=== PATIENT | male | born 1950 | race Caucasian/White ===

== ENCOUNTER 2018-01-05 17:11 | Outpatient (REF) | payer MEDICARE, SELFPAY ==
[2018-01-05 18:41] LABS: C-Reactive Protein 2.35 mg/dL (0.0-0.3)
[2018-01-05 20:36] LABS: ESR 39 MM/HR (1-20)
== END 2018-01-05 17:31 ==
LOC: LBN 17:11
PROVIDERS: Visit Provider Family Medicine
DX: L89.150 Pressure ulcer of sacral region, unstageable (principal)
CPT/HCPCS: 85652; 86140

== ENCOUNTER 2018-02-13 14:37 | Outpatient (REF) | payer MEDICARE, SELFPAY ==
[2018-02-13 15:08] LABS: HCT 37.2 % (40.0-50.0); HGB 12.1 g/dL (13.5-17.5); Mean Corp. HGB Concentration 32.5 g/dL (32.0-36.0); Mean Corpuscular Hemoglobin 29.5 pg (27.0-33.0); Mean Corpuscular Volume 90.7 fL (80-95); Mean Platelet Volume 9.1 fL (8.0-11.0); Platelet Count 282 x1000/uL (130-400); RBC Distribution Width 13.7 % (11.8-14.1); White Blood Cell Count 5.52 k/cumm (4.4-10.8)
[2018-02-13 15:31] LABS: ALT 17 U/L (12-78); AST 14 U/L (15-37); Albumin 2.9 g/dL (3.4-5.0); Alkaline Phosphatase 83 U/L (46-116); BUN 12 mg/dL (7-18); Bilirubin, Total 0.4 mg/dL (0.2-1.0); C-Reactive Protein 3.43 mg/dL (0.0-0.3); CREATININE 0.57 mg/dL (0.70-1.30); Calcium 8.5 mg/dL (8.5-10.1); Chloride 102 mmol/L (98-107); Creatine Kinase 46 U/L (39-308); Glucose 89 mg/dL (70-100); Sodium 138 mmol/L (136-145); Total Protein 6.3 g/dL (6.4-8.2)
[2018-02-13 16:08] LABS: ESR 42 MM/HR (1-20)
== END 2018-02-13 14:57 ==
LOC: LBN 14:37
PROVIDERS: Visit Provider Hospitalist
DX: M46.28 Osteomyelitis of vertebra, sacral and sacrococcygeal region (principal)
CPT/HCPCS: 80053; 82550; 85027; 85652; 86140

== ENCOUNTER 2018-02-20 17:30 | Outpatient (REF) | payer MEDICARE, SELFPAY ==
[2018-02-21 10:05] LABS: Alkaline Phosphatase 74 U/L (46-116); Anion Gap 9.5 mmol/L (3-11); BUN 18 mg/dL (7-18); Bilirubin, Total 0.4 mg/dL (0.2-1.0); CO2 28.5 mmol/L (21.0-32.0); CREATININE 0.64 mg/dL (0.70-1.30); Calcium 8.6 mg/dL (8.5-10.1); Chloride 103 mmol/L (98-107); Glucose 84 mg/dL (70-100); Potassium 4.6 mmol/L (3.5-5.1); Sodium 141 mmol/L (136-145); Total Protein 6.3 g/dL (6.4-8.2)
[2018-02-21 10:06] LABS: ALT 15 U/L (12-78); AST 13 U/L (15-37)
[2018-02-21 10:10] LABS: HCT 39.7 % (40.0-50.0); HGB 12.7 g/dL (13.5-17.5); Mean Corpuscular Volume 89.8 fL (80-95); RBC 4.42 m/cumm (4.50-6.00)
[2018-02-21 10:11] LABS: ESR 41 MM/HR (1-20); Mean Corpuscular Hemoglobin 28.7 pg (27.0-33.0); Mean Platelet Volume 9.7 fL (8.0-11.0); Platelet Count 263 x1000/uL (130-400); RBC Distribution Width 14.3 % (11.8-14.1)
[2018-02-21 10:14] LABS: Creatine Kinase 45 U/L (39-308)
== END 2018-02-20 17:50 ==
LOC: LBN 17:30
PROVIDERS: Visit Provider Hospitalist
DX: M46.28 Osteomyelitis of vertebra, sacral and sacrococcygeal region (principal); N39.0 Urinary tract infection, site not specified; Z79.2 Long term (current) use of antibiotics
CPT/HCPCS: 80053; 82550; 85027; 85652; 86140

== ENCOUNTER 2018-02-27 12:38 | Outpatient (REF) | payer MEDICARE, SELFPAY ==
[2018-02-27 13:57] LABS: Absolute Basophil Count 0.02 k/cumm (0.0-0.2); Absolute Eosinophil Count 0.47 k/cumm (0.0-0.7); Absolute Lymphocyte Count 0.63 k/cumm (1.2-3.4); Absolute Monocyte Count 0.57 k/cumm (0.11-0.7); Absolute Neutrophil Count 4.58 k/cumm (1.2-6.7); Basophils % 0.3; Eosinophils % 7.5; HCT 40.3 % (40.0-50.0); Mean Corp. HGB Concentration 32.3 g/dL (32.0-36.0); Mean Corpuscular Hemoglobin 28.8 pg (27.0-33.0); Mean Corpuscular Volume 89.2 fL (80-95); Mean Platelet Volume 9.1 fL (8.0-11.0); Monocytes % 9.1; Neutrophils % 73.1; Platelet Count 270 x1000/uL (130-400); RBC 4.52 m/cumm (4.50-6.00); RBC Distribution Width 14.2 % (11.8-14.1); White Blood Cell Count 6.27 k/cumm (4.4-10.8)
[2018-02-27 14:10] LABS: ALT 17 U/L (12-78); AST 13 U/L (15-37); Albumin 3.2 g/dL (3.4-5.0); Alkaline Phosphatase 86 U/L (46-116); Anion Gap 9.8 mmol/L (3-11); BUN 12 mg/dL (7-18); Bilirubin, Total 0.3 mg/dL (0.2-1.0); C-Reactive Protein 0.47 mg/dL (0.0-0.3); CO2 28.2 mmol/L (21.0-32.0); CREATININE 0.65 mg/dL (0.70-1.30); Calcium 8.9 mg/dL (8.5-10.1); Chloride 102 mmol/L (98-107); Creatine Kinase 53 U/L (39-308); Glucose 81 mg/dL (70-100); Potassium 4.2 mmol/L (3.5-5.1); Sodium 140 mmol/L (136-145); Total Protein 6.5 g/dL (6.4-8.2)
[2018-02-27 14:30] LABS: ESR 24 MM/HR (1-20)
== END 2018-02-27 12:58 ==
LOC: LBN 12:38
PROVIDERS: Visit Provider Hospitalist
DX: L89.150 Pressure ulcer of sacral region, unstageable (principal); M46.28 Osteomyelitis of vertebra, sacral and sacrococcygeal region; B96.20 Unspecified Escherichia coli [E. coli] as the cause of diseases classified elsewhere; B96.1 Klebsiella pneumoniae [K. pneumoniae] as the cause of diseases classified elsewhere; Z79.2 Long term (current) use of antibiotics; C41.4 Malignant neoplasm of pelvic bones, sacrum and coccyx; C41.2 Malignant neoplasm of vertebral column; C78.00 Secondary malignant neoplasm of unspecified lung
CPT/HCPCS: 80053; 82550; 85652; 85025; 86140

== ENCOUNTER 2018-03-06 13:03 | Outpatient (REF) | payer MEDICARE, BC, SELFPAY ==
[2018-03-06 13:36] LABS: Abs Immature Grans 0.01 k/cumm (0.0-0.09); Absolute Basophil Count 0.03 k/cumm (0.0-0.2); Absolute Eosinophil Count 0.31 k/cumm (0.0-0.7); Absolute Lymphocyte Count 0.66 k/cumm (1.2-3.4); Absolute Monocyte Count 0.58 k/cumm (0.11-0.7); Absolute Neutrophil Count 4.38 k/cumm (1.2-6.7); Basophils % 0.5; Eosinophils % 5.2; HGB 13.3 g/dL (13.5-17.5); Immature Grans % 0.2; Lymphocytes % 11.1; Mean Corp. HGB Concentration 32.4 g/dL (32.0-36.0); Mean Corpuscular Hemoglobin 28.7 pg (27.0-33.0); Mean Corpuscular Volume 88.6 fL (80-95); Mean Platelet Volume 9.7 fL (8.0-11.0); Monocytes % 9.7; Neutrophils % 73.3; Platelet Count 263 x1000/uL (130-400); RBC 4.63 m/cumm (4.50-6.00); RBC Distribution Width 14.5 % (11.8-14.1); White Blood Cell Count 5.97 k/cumm (4.4-10.8)
[2018-03-06 14:07] LABS: ALT 16 U/L (12-78); AST 20 U/L (15-37); Albumin 3.3 g/dL (3.4-5.0); Alkaline Phosphatase 90 U/L (46-116); Anion Gap 9.1 mmol/L (3-11); BUN 13 mg/dL (7-18); Bilirubin, Total 0.5 mg/dL (0.2-1.0); C-Reactive Protein 1.23 mg/dL (0.0-0.3); CO2 28.9 mmol/L (21.0-32.0); Calcium 9.1 mg/dL (8.5-10.1); Chloride 102 mmol/L (98-107); Creatine Kinase 285 U/L (39-308); Glucose 90 mg/dL (70-100); Potassium 4.5 mmol/L (3.5-5.1); Sodium 140 mmol/L (136-145); Total Protein 6.6 g/dL (6.4-8.2)
[2018-03-06 15:10] LABS: ESR 18 MM/HR (1-20)
== END 2018-03-06 13:23 ==
LOC: LBN 13:03
PROVIDERS: Visit Provider Hospitalist
DX: M46.28 Osteomyelitis of vertebra, sacral and sacrococcygeal region (principal); C41.2 Malignant neoplasm of vertebral column; C41.4 Malignant neoplasm of pelvic bones, sacrum and coccyx; Z79.2 Long term (current) use of antibiotics
CPT/HCPCS: 80053; 82550; 85652; 85025; 86140

== ENCOUNTER 2018-03-13 12:23 | Outpatient (REF) | payer MEDICARE, SELFPAY ==
[2018-03-13 13:36] LABS: Absolute Basophil Count 0.02 k/cumm (0.0-0.2); Absolute Eosinophil Count 0.62 k/cumm (0.0-0.7); Absolute Lymphocyte Count 0.61 k/cumm (1.2-3.4); Absolute Monocyte Count 0.54 k/cumm (0.11-0.7); Absolute Neutrophil Count 3.85 k/cumm (1.2-6.7); Basophils % 0.4; HCT 38.4 % (40.0-50.0); HGB 12.6 g/dL (13.5-17.5); Lymphocytes % 10.8; Mean Corp. HGB Concentration 32.8 g/dL (32.0-36.0); Mean Corpuscular Hemoglobin 29.1 pg (27.0-33.0); Mean Corpuscular Volume 88.7 fL (80-95); Mean Platelet Volume 9.6 fL (8.0-11.0); Monocytes % 9.6; Neutrophils % 68.2; Platelet Count 230 x1000/uL (130-400); RBC 4.33 m/cumm (4.50-6.00); RBC Distribution Width 14.9 % (11.8-14.1); White Blood Cell Count 5.64 k/cumm (4.4-10.8)
[2018-03-13 13:56] LABS: ALT 14 U/L (12-78); AST 15 U/L (15-37); Albumin 2.9 g/dL (3.4-5.0); Alkaline Phosphatase 80 U/L (46-116); Anion Gap 6.7 mmol/L (3-11); BUN 11 mg/dL (7-18); Bilirubin, Total 0.4 mg/dL (0.2-1.0); C-Reactive Protein 3.68 mg/dL (0.0-0.3); CO2 29.3 mmol/L (21.0-32.0); CREATININE 0.61 mg/dL (0.70-1.30); Calcium 8.6 mg/dL (8.5-10.1); Chloride 103 mmol/L (98-107); Creatine Kinase 77 U/L (39-308); Glucose 133 mg/dL (70-100); Potassium 3.9 mmol/L (3.5-5.1); Sodium 139 mmol/L (136-145); Total Protein 6.1 g/dL (6.4-8.2)
[2018-03-13 14:23] LABS: ESR 23 MM/HR (1-20)
== END 2018-03-13 12:43 ==
LOC: LBN 12:23
PROVIDERS: Visit Provider Internal Medicine
DX: M46.28 Osteomyelitis of vertebra, sacral and sacrococcygeal region (principal); B96.1 Klebsiella pneumoniae [K. pneumoniae] as the cause of diseases classified elsewhere; B96.20 Unspecified Escherichia coli [E. coli] as the cause of diseases classified elsewhere; Z79.2 Long term (current) use of antibiotics
CPT/HCPCS: 80053; 82550; 85652; 85025; 86140

== ENCOUNTER 2018-03-20 13:39 | Outpatient (REF) | payer MEDICARE, SELFPAY ==
[2018-03-20 14:12] LABS: Abs Immature Grans 0.01 k/cumm (0.0-0.09); Absolute Basophil Count 0.03 k/cumm (0.0-0.2); Absolute Lymphocyte Count 0.54 k/cumm (1.2-3.4); Absolute Monocyte Count 0.46 k/cumm (0.11-0.7); Absolute Neutrophil Count 3.48 k/cumm (1.2-6.7); Basophils % 0.6; Eosinophils % 6.2; HCT 40.5 % (40.0-50.0); HGB 13.3 g/dL (13.5-17.5); Immature Grans % 0.2; Lymphocytes % 11.2; Mean Corp. HGB Concentration 32.8 g/dL (32.0-36.0); Mean Corpuscular Hemoglobin 29.2 pg (27.0-33.0); Mean Corpuscular Volume 88.8 fL (80-95); Mean Platelet Volume 9.3 fL (8.0-11.0); Monocytes % 9.5; Neutrophils % 72.3; Platelet Count 236 x1000/uL (130-400); RBC 4.56 m/cumm (4.50-6.00); RBC Distribution Width 14.9 % (11.8-14.1); White Blood Cell Count 4.82 k/cumm (4.4-10.8)
[2018-03-20 14:21] LABS: ALT 17 U/L (12-78); AST 13 U/L (15-37); Albumin 3.1 g/dL (3.4-5.0); Alkaline Phosphatase 85 U/L (46-116); Anion Gap 10.4 mmol/L (3-11); BUN 11 mg/dL (7-18); Bilirubin, Total 0.3 mg/dL (0.2-1.0); C-Reactive Protein 0.25 mg/dL (0.0-0.3); CO2 27.6 mmol/L (21.0-32.0); CREATININE 0.77 mg/dL (0.70-1.30); Calcium 8.6 mg/dL (8.5-10.1); Chloride 102 mmol/L (98-107); Creatine Kinase 66 U/L (39-308); Glucose 139 mg/dL (70-100); Potassium 3.9 mmol/L (3.5-5.1); Sodium 140 mmol/L (136-145); Total Protein 6.2 g/dL (6.4-8.2)
[2018-03-20 14:47] LABS: ESR 13 MM/HR (1-20)
== END 2018-03-20 13:59 ==
LOC: LBN 13:39
PROVIDERS: Visit Provider Hospitalist
DX: M46.28 Osteomyelitis of vertebra, sacral and sacrococcygeal region (principal); B96.20 Unspecified Escherichia coli [E. coli] as the cause of diseases classified elsewhere; B96.1 Klebsiella pneumoniae [K. pneumoniae] as the cause of diseases classified elsewhere; Z79.2 Long term (current) use of antibiotics
CPT/HCPCS: 80053; 82550; 85652; 85025; 86140

== ENCOUNTER 2018-07-20 15:58 | Outpatient (REF) | payer MEDICARE, SELFPAY ==
[2018-07-20 16:55] LABS: Bilirubin Negative (Negative); Blood Large (Negative); Clarity Cloudy; Glucose Negative (Negative); Ketones Negative (Negative); Leukocyte Esterase Large (Negative); Nitrite Positive (Negative); Urobilinogen 0.2 EU/dL (Up TO 0.2); pH 6.5 (5-8)
[2018-07-20 17:37] LABS: Bacteria Many HPF (Negative); C & S Indicated? Yes; Casts Negative LPF (Negative); Crystals Negative HPF (Negative); Epithelial Cells Negative HPF (Negative); Mucus Heavy (Negative); RBC >50 (0-2); WBC >50 HPF (0-5)
== END 2018-07-20 16:18 ==
LOC: LBN 15:58
PROVIDERS: Visit Provider Hospitalist
DX: N39.0 Urinary tract infection, site not specified (principal)
CPT/HCPCS: 87077; 81003; 81015; 87086; 87186

== ENCOUNTER 2018-09-20 20:16 | Emergency (ER) | payer MEDICARE, BC, SELFPAY ==
[2018-09-20 20:19] VITALS: BP 135/89; PULSE 87; RESP 16; TEMP 36.1; O2SAT 93
--- NOTE | 2018-09-20 20:21 | ED.GENADUL_ITS ---
Discharge Plan Disposition Patient Disposition: SNF (LEVEL 1) [facility] Condition: Good Discharge Details Chief Complaint: Abd Prob Clinical Impression: Fecal impaction in rectum Primary Care Provider: None,None ED Provider: Win Gutierrez [place] Meds and New Rx's Prescriptions: Continued cyclobenzaprine 10 mg Tablet 10 mg PO TID PRNRF: 0 docusate sodium [Colace] 100 mg Capsule 100 mg PO BID RF: 0 docusate sodium 100 mg Capsule 100 mg PO BID PRNRF: 0 bisacodyl 5 mg Tablet,Delayed Release (Dr/Ec) 10 mg PO Q12H PRNRF: 0 acetaminophen 325 mg Capsule 650 mg PO Q4H PRN PRNRF: 0 sennosides [senna] 8.6 mg Tablet RF: 0 magnesium hydroxide [Milk of Magnesia] 400 mg/5 mL Suspension RF: 0 tamsulosin 0.4 mg Capsule RF: 0 magnesium citrate Solution RF: 0 polyethylene glycol 3350 [Miralax] 17 gram/dose Powder RF: 0 finasteride 5 mg Tablet RF: 0 oxycodone 5 mg Tablet RF: 0 heparin (porcine) 5,000 unit/mL Syringe RF: 0 diclofenac sodium 1 % Gel 4 g TOPICAL RF: 0 Discharge Instructions Additional Instructions: You were manually disimpacted here. You will need an enema when you return to [facility]. Discuss with your primary care a good bowel regimen to try to prevent further constipation. Be sure to drink plenty of fluids and eat lots of fiber foods. Return to ED for abdominal pain, fever, vomiting. Referrals: Vicky Velázquez DO [OSTEOPATHIC DOCTOR] - Discharge Data Discharge Date/Time-TO BE ENTERED AT DEPARTURE: 09/20/18 21:18 Medical Decision Making Patient able to get into left lateral decubitus position. TERESA performed and large amount of stool present in the rectal vault. Patient manually disimpacted by me. Stool is brown and there is no active bleeding. All stool removed from the rectal vault. [facility] he will need an enema tonight to complete treatment for constipation. He will need follow-up with primary care for bowel regimen. Return to ED for fever, vomiting, abdominal pain. HPI General Mode of arrival: EMS . Date/Time Provider Initiated Documentation: 09/20/18 20:21 . Limitations to Documentation: no limitations . Information obtained by: patient, RN notes reviewed and old records reviewed . HPI Narrative: Patient presents to ED from [facility] for evaluation of constipation. Patient has had this problem for about the last month since undergoing another spinal surgery. 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 He has a chronic indwelling Motta. He has had problems with constipation on and off. He reports being disimpacted at [facility] postop as well as last week at rehab. He is having a lot of rectal pressure and abdominal discomfort again. He is on stool softeners. They offered him an enema over at Rehab but he asked to be transferred here for disimpaction. He denies fevers or chills. He denies nausea vomiting. He denies abdominal pain, just has discomfort in the urge to defecate. Related Data Home Medications Medication Instructions Recorded Confirmed acetaminophen 650 mg PO Q4H PRN PRN 09/20/18 09/20/18 bisacodyl 10 mg PO Q12H PRN 09/20/18 09/20/18 cyclobenzaprine 10 mg PO TID PRN 09/20/18 09/20/18 diclofenac sodium 4 g TOPICAL 09/20/18 docusate sodium 100 mg PO BID PRN 09/20/18 09/20/18 docusate sodium [Colace] 100 mg PO BID 09/20/18 09/20/18 finasteride 09/20/18 heparin (porcine) 09/20/18 magnesium citrate 09/20/18 magnesium hydroxide [Milk of 09/20/18 Magnesia] oxycodone 09/20/18 polyethylene glycol 3350 [Miralax] 09/20/18 sennosides [senna] 09/20/18 tamsulosin 09/20/18 Review of Systems Review of Systems As documented in HPI otherwise negative as below. Const: no fever, chills, weakness Resp: no cough, SOB, pleuritic pain CV: no CP, diaphoresis, edema, syncope GI: no abdominal pain, nausea, vomiting, diarrhea Neuro: no headache, numbness, focal weakness, confusion PFSH Medical History BPH (benign prostatic hyperplasia) (Chronic) Chordoma of spine (Chronic) Constipation (Chronic) Right carotid artery occlusion (Chronic) Sacral ulcer (Chronic) Urinary retention (Chronic) Surgical History S/P spinal surgery (Acute) Exam Narrative Exam Narrative: Vitals: Afebrile with normal heart rate and blood pressure. Const: Thin male in NAD. HEENT: NC/AT. Normal facial exam. Eyes: Normal conjunctiva and sclera. Neck: Supple. Trachea midline. Lungs: Normal respiratory effort. GI: Soft. NT/ND. No guarding or rebound. Neuro: A+O x 3. CN grossly in tact. Significant LE weakness (old). Ext: No C/C/E. No deformity or tenderness. Skin: Warm and dry without rash.
[2018-09-20 21:12] VITALS: BP 135/89; PULSE 87; RESP 16; O2SAT 93
== END 2018-09-20 21:18 | disposition skilled nursing facility (03) ==
PROVIDERS: Emergency Provider Emergency Medicine
DX: K56.41 Fecal impaction (principal); T40.605A Adverse effect of unspecified narcotics, initial encounter; Z96.0 Presence of urogenital implants
CPT/HCPCS: 99283

== ENCOUNTER 2018-10-28 15:25 | Emergency (ER) | payer MEDICARE, BC, SELFPAY ==
[2018-10-28] VITALS (23 sets, daily range): BP systolic 101–139; BP diastolic 64–111; PULSE 72–94; RESP 7–23; TEMP 36.6–36.7; O2SAT 86–96
--- NOTE | 2018-10-28 15:36 | DI.CT_ITS ---
SYMPTOM/DIAGNOSIS: PLEURITIC CHEST PAIN PE CHEST CT: CT angiography was performed with multi slice acquisition and multi planar and 3D reconstruction. CT examination of the chest was performed with a bolus infusion of 61 cc's of Omnipaque 350. Note is made of posterior fixation of thoracolumbar junction and apparent old resection of posterior spinous process of L 1. There is no evidence of pulmonary embolic disease. Thoracic aorta not ideally opacified but no evidence of thoracic aortic aneurysm or dissection. There is predominant collapse of the right lower lobe with increased radiodensity associated with the inferior right hilum, the findings are suspicious for carcinoma. There are multiple intrapulmonary nodules seen, the largest is in the left lower lobe measuring about 17 mm. in greatest diameter. The findings are suspicious for metastatic disease. Poorly defined minimal ground glass and tree and bud opacities noted in right upper and middle lobes, question infectious process versus metastatic disease. No significant right pleural effusion seen. A right pleural based peripheral mass is noted at the lung base measuring about 10 mm. in diameter. No bulky mediastinal adenopathy identified. No supraclavicular or axillary adenopathy. Images obtained through the upper abdomen show unremarkable appearance of visualized portions of liver, pancreas and kidneys. Left adrenal nodule noted measuring about 2.4 cm. in diameter which is nonspecific. This is of fairly low attenuation averaging 11 Hounsfield units and this may represent a benign adrenal adenoma but malignancy is not absolutely excluded. CONCLUSION: Findings raising the possibility of right lower lobe lung carcinoma with multiple intrapulmonary metastatic lesions. No evidence of pulmonary embolic disease.
--- NOTE | 2018-10-28 15:37 | W.ED.GENAD ---
Discharge Plan Disposition Patient Disposition: HOME Condition: Stable Discharge Details Chief Complaint: Chest Pain Clinical Impression: Pneumonia, Lung mass Primary Care Provider: None,None ED Provider: Arcadio Sloan Home Meds and New Rx's Prescriptions: New levofloxacin 750 mg tablet 750 mg PO DAILY Qty: 6 RF: 0 No Action cyclobenzaprine 10 mg Tablet 10 mg PO TID PRNRF: 0 docusate sodium [Colace] 100 mg Capsule 100 mg PO BID RF: 0 docusate sodium 100 mg Capsule 100 mg PO BID PRNRF: 0 bisacodyl 5 mg Tablet,Delayed Release (Dr/Ec) 10 mg PO Q12H PRNRF: 0 acetaminophen 325 mg Capsule 650 mg PO Q4H PRN PRNRF: 0 sennosides [senna] 8.6 mg Tablet RF: 0 magnesium hydroxide [Milk of Magnesia] 400 mg/5 mL Suspension RF: 0 magnesium citrate Solution PO PRN PRNRF: 0 polyethylene glycol 3350 [Miralax] 17 gram/dose Powder RF: 0 finasteride 5 mg Tablet 5 mg PO DAILY AM RF: 0 oxycodone 5 mg Tablet 5 mg PO PRN PRNRF: 0 diclofenac sodium 1 % Gel 4 g TOPICAL PRN PRNRF: 0 tamsulosin 0.4 mg Capsule 0.8 mg PO DAILY AM RF: 0 albuterol sulfate 1.25 mg/3 mL Solution For Nebulization 1.25 mg inhalation Q6H PRN PRNRF: 0 Discharge Instructions Additional Instructions: Your cat scan showed a pneumonia and also a lung mass with findings consistent with likely cancer Follow up with your primary care provider this week and if you choose you want workup or treatment of this you will need a referral to oncology if you feel you are becoming more ill or having worsening shortness of breath return to the emergency department Medical Decision Making 68 yo male with hx of htn, chrodoma of spine, who comes in from [facility] for upper thoracic pain just lateral the the t spine on both sides per pt. He had a fall from sitting height per pt last Tuesday and had a ngative xray per pt. He comes in with conitnued pain. He has reporducbile upper back pain and has no rashes, does state that deep breathing makes it worse. Given his symptoms and wells score is moderate will obtain cta to eval for pe. Unlikely acs given no radiatino of the pain, heart score is 2, will send troponin. Normal vascular exam so doubt dissection pt remains stable, labsunremarkable. His CT shows no Pe but does have suspicious mass for malignancy in the right lower lobe with surrounding pneumonia. I discussed the results with him and he is not sure that he would want tx for cancer if that is indeed what this is. He feels better and can be tx'd with PO abx given hd stability and reassuring lab work. Will start him on abx and he is going to f/u with his provider at [facility] and decide if he wants tx for his mass Differential Diagnosis musculoskeletal pain, pe, pna Medical Records Medical records reviewed: Yes I reviewed the patient's medical records. Imaging Data Radiologic Study: Attestation: I personally reviewed and interpreted this imaging study as follows: Imaging: CT Scan Radiologist's impression: IMPRESSION: 1. Negative for pulmonary embolism, aortic aneurysm or dissection. 2. Low-density soft tissue massing (suspicious for malignancy) around the bronchovascular bundle to the right lower lobe with postobstructive atelectasis or pneumonia. Multiple bilateral low density pulmonary nodules, concerning for metastases. 3. Very mild right lung tree in bud opacities may represent infection/inflammation in the small airways or lymphangitic spread of metastases. 4. Splenomegaly. 5. Nonspecific low density and nodularity of the left adrenal gland. Lab Data Lab results reviewed: Yes I reviewed the patient's lab results. ECG Data Attestation: I personally reviewed and interpreted this ECG (s) as follows: Prior ECG tracings: not available for review Interpretation: sinus rhtyhm, rate of 87, pr 152, no acute st t wave ischemic findings HPI General Mode of arrival: EMS. Date/Time Provider Initiated Documentation: 10/28/18 15:35. Limitations to Documentation: no limitations. Information obtained by: patient. History of Present Illness 68 year old M presents to the emergency department with the chief complaint of upper back pain, described as moderate, Quality is described as aching, No relieving factors improve symptom(s), No exacerbating factors reported . Patient did receive the following treatments prior to arrival, none Related Data Home Medications Medication Instructions Recorded Confirmed acetaminophen 650 mg PO Q4H PRN PRN 09/20/18 10/28/18 bisacodyl 10 mg PO Q12H PRN 09/20/18 10/28/18 cyclobenzaprine 10 mg PO TID PRN 09/20/18 10/28/18 diclofenac sodium 4 g TOPICAL PRN PRN 09/20/18 10/28/18 docusate sodium 100 mg PO BID PRN 09/20/18 10/28/18 docusate sodium [Colace] 100 mg PO BID 09/20/18 10/28/18 finasteride 5 mg PO DAILY AM 09/20/18 10/28/18 magnesium citrate PO PRN PRN 09/20/18 magnesium hydroxide [Milk of 09/20/18 Magnesia] oxycodone 5 mg PO PRN PRN 09/20/18 10/28/18 polyethylene glycol 3350 [Miralax] 09/20/18 sennosides [senna] 09/20/18 albuterol sulfate 1.25 mg INHALATION Q6H PRN PRN 10/28/18 10/28/18 levofloxacin 750 mg PO DAILY #6 tab 10/28/18 tamsulosin 0.8 mg PO DAILY AM 10/28/18 10/28/18 Previous Rx's Medication Instructions Recorded levofloxacin 750 mg PO DAILY #6 tab 10/28/18 Allergies Allergy/AdvReac Type Severity Reaction Status Date / Time adhesive Allergy Unverified 10/28/18 15:39 General Stated Complaint: Chest Pain CONRAD: 2 Review of Systems Review of Systems All systems reviewed & are unremarkable except as noted in HPI and below Constitutional Denies chills, Denies fever(s) and Denies weakness Cardiovascular Denies chest pain and Denies dyspnea Respiratory Denies cough and Denies dyspnea Gastrointestinal Denies abdominal pain, Denies nausea and Denies vomiting Integumentary/Breasts Denies rash Neurologic Denies weakness Endocrine Denies heat intolerance COUNT INCLUDES THE [facility] Medical History (Updated 10/26/18 @ 10:41 by Martha Arroyo) Alcohol abuse (Chronic) BPH (benign prostatic hyperplasia) (Chronic) Chordoma of spine (Chronic) Chronic back pain (Acute) Constipation (Chronic) Disorder of meninges (Acute) Essential hypertension (Acute) Hyperlipidemia (Acute) Impotence (Acute) Right carotid artery occlusion (Chronic) Sacral ulcer (Chronic) Urinary retention (Chronic) Surgical History (Updated 09/20/18 @ 21:01 by Win Gutierrez MD) S/P spinal surgery (Acute) Social History (Updated 10/26/18 @ 10:34 by Martha Arroyo) Smoking/Tobacco Use Status: Former Tobacco Use Alcohol Intake: never Substance use type: does not use Do you need help understanding health information?: Rarely current occupation: Retired Current gender identity: male Do you feel safe at home: Yes Do you feel safe in your relationship?: Yes Exam Const General: no acute distress Orientation: alert HENMT Head: normal to inspection Ears: external ears normal General nose exam: external nose normal Mouth: moist mucous membranes Eyes General: appearance normal, both eyes and all related structures Neck Neck: normal visual inspection Resp Effort & Inspection: normal respiratory effort and able to speak in complete sentences Cardio Rate: regular rate Back/Spine/Pelvis Back: no CVA tenderness Skin General skin exam: no rashes or lesions noted Neuro General: alert and oriented x3 Extrem General: normal to inspection Psych Mental Status: mental status grossly normal Course Vital Signs Temperature 36.7 C 10/28/18 15:28 Pulse 90 10/28/18 15:28 Respiratory Rate 7 L 10/28/18 15:28 Blood Pressure 111/80 10/28/18 15:28 Pulse Oximetry 92 L 10/28/18 15:28 Temperature 36.7 C 10/28/18 15:28 Temperature Source Temporal Artery Scan 10/28/18 15:28 Pulse 90 10/28/18 15:28 Respiratory Rate 7 L 10/28/18 15:28 Blood Pressure 111/80 10/28/18 15:28 Blood Pressure Position Sitting 10/28/18 15:28 Pulse Oximetry 92 L 10/28/18 15:28 Oxygen Delivery Method Room Air 10/28/18 15:28 Oxygen Flow Rate 0 10/28/18 15:28 Pain Level 3 10/28/18 15:28
[2018-10-28] MEDS: Normal Saline 1,000 ML 1000 ML IV (15:46)
[2018-10-28 15:50] LABS: Abs Immature Grans 0.02 k/cumm (0.0-0.09); Absolute Basophil Count 0.03 k/cumm (0.0-0.2); Absolute Eosinophil Count 0.35 k/cumm (0.0-0.7); Absolute Lymphocyte Count 0.95 k/cumm (1.2-3.4); Absolute Monocyte Count 0.72 k/cumm (0.11-0.7); Absolute Neutrophil Count 5.06 k/cumm (1.2-6.7); Basophils % 0.4; Eosinophils % 4.9; HCT 43.4 % (40.0-50.0); HGB 14.4 g/dL (13.5-17.5); Immature Grans % 0.3; Lymphocytes % 13.3; Mean Corp. HGB Concentration 33.2 g/dL (32.0-36.0); Mean Corpuscular Hemoglobin 29.3 pg (27.0-33.0); Mean Corpuscular Volume 88.2 fL (80-95); Mean Platelet Volume 8.5 fL (8.0-11.0); Monocytes % 10.1; Platelet Count 250 x1000/uL (130-400); RBC 4.92 m/cumm (4.50-6.00); RBC Distribution Width 13.7 % (11.8-14.1); White Blood Cell Count 7.13 k/cumm (4.4-10.8)
[2018-10-28] MEDS: Omnipaque 350 MG/ML 100 ML BTL IJ (16:01)
[2018-10-28 16:06] LABS: ALT 9 U/L (12-78); AST 5 U/L (15-37); Alkaline Phosphatase 88 U/L (46-116); Anion Gap 8.1 mmol/L (3-11); BUN 16 mg/dL (7-18); Bilirubin, Total 0.3 mg/dL (0.2-1.0); CO2 29.9 mmol/L (21.0-32.0); CREATININE 0.58 mg/dL (0.70-1.30); Calcium 8.9 mg/dL (8.5-10.1); Chloride 103 mmol/L (98-107); Glucose 112 mg/dL (70-100); Potassium 4.2 mmol/L (3.5-5.1); Sodium 141 mmol/L (136-145); Total Protein 7.1 g/dL (6.4-8.2)
[2018-10-28 16:09] LABS: Troponin I < 0.05 ng/mL (0.00-0.06)
[2018-10-28 16:31] LABS: INR 1.1 (0.9-1.1); PTT Activated 27.4 sec (21.0-31.4); Prothrombin Time 11.3 sec (9.3-11.0)
--- NOTE | 2018-10-28 17:02 | DI.VRAD_ITS ---
EXAM: CT Angiography Chest With Contrast EXAM DATE/TIME: 10/28/2018 3:36 PM CLINICAL HISTORY: 68 years old, male; Pain; Pleuordynia TECHNIQUE: Imaging protocol: Axial computed tomographic angiography images of the chest with intravenous contrast using CT angiography protocol. Coronal and sagittal reformatted images were created and reviewed. 3D rendering: MIP reconstructed images were created and reviewed. COMPARISON: CR XR CHEST 2V PA LATERAL 10/23/2018 3:08 PM FINDINGS: Pulmonary arteries: No pulmonary embolism. Aorta: Unremarkable. No aortic aneurysm. No aortic dissection. Lungs: Low-density soft tissue massing around the bronchovascular bundle to the right lower lobe with segmental consolidation in the right lower lobe. There is fluid within the bronchi to the consolidated lung. 2 cm round low density mass adjacent to the bronchovascular bundle in the right lower lobe. Additional similar, but smaller, low density pulmonary nodules in the lungs bilaterally. Very mild tree-in-bud opacities in the right upper, middle lobes and aerated portions of the right lower lobe. Pleural space: Unremarkable. No pneumothorax. No pleural effusion. Heart: Unremarkable. No cardiomegaly. No pericardial effusion. Diaphragm: Mild elevation of the left hemidiaphragm. Spleen is enlarged measuring 14 cm in length. Adrenals: Nonspecific low density and nodularity of the left adrenal gland. Lymph nodes: No discrete enlarged lymph nodes. Bones/joints: No acute fracture. Mechanical fusion at T1-T2. Bilateral laminectomies at T12 and L1. Soft tissues: Incidental small benign lipoma posterior to the right paraspinous muscle at the T10-T12 levels. IMPRESSION: 1. Negative for pulmonary embolism, aortic aneurysm or dissection. 2. Low-density soft tissue massing (suspicious for malignancy) around the bronchovascular bundle to the right lower lobe with postobstructive atelectasis or pneumonia. Multiple bilateral low density pulmonary nodules, concerning for metastases. 3. Very mild right lung tree in bud opacities may represent infection/inflammation in the small airways or lymphangitic spread of metastases. 4. Splenomegaly. 5. Nonspecific low density and nodularity of the left adrenal gland. Dictated and Authenticated by: Martha Russell MD. Ordering:JANETH Ervin MD
[2018-10-28] MEDS: levoFLOXacin 500 MG, levoFLOXacin 250 MG 750 MG PO (17:23)
== END 2018-10-28 17:40 | disposition home or self-care (01) ==
PROVIDERS: Emergency Provider Emergency Medicine
DX: J18.9 Pneumonia, unspecified organism (principal); R91.8 Other nonspecific abnormal finding of lung field; M54.6 Pain in thoracic spine; W18.30XA Fall on same level, unspecified, initial encounter; I10 Essential (primary) hypertension
CPT/HCPCS: 36415; 71275; 80053; 93005; 96360; 99285; 83735; 84484; 85025; 85610; 85730; 93010; J3490

== ENCOUNTER 2018-11-12 03:30 | Inpatient (IN) | payer MEDICARE, BC, SELFPAY ==
[2018-11-12] VITALS (32 sets, daily range): BP systolic 103–147; BP diastolic 70–94; PULSE 79–104; RESP 2–25; TEMP 34–36.6; O2SAT 87–96
--- NOTE | 2018-11-12 03:34 | ED.GENADUL_ITS ---
Discharge Plan Disposition Patient Disposition: [facility] Condition: Poor Discharge Details Chief Complaint: SOB Clinical Impression: Bilateral pneumonia, Mucus plugging of bronchi, Hypoxemia Primary Care Provider: Jennifer Marc ED Provider: Win Gutierrez [place] Meds and New Rx's Prescriptions: No Action ibuprofen 400 mg Tablet 400 mg PO BID RF: 0 cyclobenzaprine 10 mg Tablet 10 mg PO TID PRNRF: 0 docusate sodium [Colace] 100 mg Capsule 100 mg PO BID RF: 0 docusate sodium 100 mg Capsule 100 mg PO BID PRNRF: 0 bisacodyl 5 mg Tablet,Delayed Release (Dr/Ec) 10 mg PO Q12H PRNRF: 0 acetaminophen 325 mg Capsule 650 mg PO Q4H PRN PRNRF: 0 sennosides [senna] 8.6 mg Tablet RF: 0 magnesium hydroxide [Milk of Magnesia] 400 mg/5 mL Suspension RF: 0 magnesium citrate Solution PO PRN PRNRF: 0 polyethylene glycol 3350 [Miralax] 17 gram/dose Powder RF: 0 finasteride 5 mg Tablet 5 mg PO DAILY AM RF: 0 oxycodone 5 mg Tablet 5 mg PO PRN PRNRF: 0 diclofenac sodium 1 % Gel 4 g TOPICAL PRN PRNRF: 0 tamsulosin 0.4 mg Capsule 0.8 mg PO DAILY AM RF: 0 albuterol sulfate 1.25 mg/3 mL Solution For Nebulization 1.25 mg inhalation Q6H PRN PRNRF: 0 levofloxacin 750 mg tablet 750 mg PO DAILY Qty: 6 RF: 0 Medical Decision Making Patient presenting with some respiratory distress and right upper back pain of fairly sudden onset tonight. Had similar event previous and diagnosed with pneumonia. Does have history of cancer. He is hypoxic and tachycardic. Will get an IV in place and start fluids. We will get laboratory studies. Will rescan for PE which will also allow for reevaluation of previous lung consolidation. May also be mucus plugging so we will put him on humidified oxygen. Patient laboratory studies show a normal CBC. Chemistries unremarkable other than bicarb being a little high at 33. Troponin negative. His CTA of the chest shows no pulmonary embolus. He has worsening right lower lobe consolidation and new left lower lobe consolidation. He has significant mucus plugging present at this time. Given the patient recent treatment with Levaquin for pneumonia and his worsening symptoms I am going to cover with broad-spectrum antibiotics. He is ordered for ceftazidime, Zithromax, vancomycin. I think a lot of his issue is the mucus plugging. He would benefit from good pulmonary toilet and chest percussion. At this point he is no longer in any type of distress. The humidified oxygen seems to have made quite a difference. He is satting at 94% on 2 L. Case discussed with hospitalist. Patient to be admitted for further management of pneumonia and mucous plugging. Medical Records Medical records reviewed: Yes I reviewed the patient's medical records. Lab Data Lab results reviewed: Yes I reviewed the patient's lab results. ECG Data Attestation: I personally reviewed and interpreted this ECG (s) as follows: Interpretation: Sinus tachycardia at 103. Normal axis/intervals. Nonspecific ST changes. HPI General Mode of arrival: EMS . Date/Time Provider Initiated Documentation: 11/12/18 03:32 . Limitations to Documentation: no limitations . Information obtained by: patient, EMS and old records reviewed . HPI Narrative: Patient presents from [facility] for evaluation of right upper back pain and shortness of breath that he states was sudden in onset this morning and woke him up from sleep. He was here on the with back pain. He had some shortness of breath as well. CT scan was negative for PE but he was found to have a pneumonia. There was also a mass. Patient has been treated with antibiotics. He is been doing okay although he still had a cough and some shortness of breath. He acutely changed tonight. He also reports coughing up a large chunk of lung mucus. He does have a history of chordoma worse with multiple back surgeries. He reports that the lung mass apparently has been present in the past stable. He is not having chest pain. He denies any abdominal complaints. He has not been having fevers. Related Data Home Medications Medication Instructions Recorded Confirmed acetaminophen 650 mg PO Q4H PRN PRN 09/20/18 11/12/18 bisacodyl 10 mg PO Q12H PRN 09/20/18 11/12/18 cyclobenzaprine 10 mg PO TID PRN 09/20/18 11/12/18 diclofenac sodium 4 g TOPICAL PRN PRN 09/20/18 11/12/18 docusate sodium 100 mg PO BID PRN 09/20/18 11/12/18 docusate sodium [Colace] 100 mg PO BID 09/20/18 11/12/18 finasteride 5 mg PO DAILY AM 09/20/18 11/12/18 magnesium citrate PO PRN PRN 09/20/18 magnesium hydroxide [Milk of 09/20/18 Magnesia] oxycodone 5 mg PO PRN PRN 09/20/18 11/12/18 polyethylene glycol 3350 [Miralax] 09/20/18 sennosides [senna] 09/20/18 albuterol sulfate 1.25 mg INHALATION Q6H PRN PRN 10/28/18 11/12/18 levofloxacin 750 mg PO DAILY #6 tab 10/28/18 11/12/18 tamsulosin 0.8 mg PO DAILY AM 10/28/18 11/12/18 ibuprofen 400 mg PO BID 11/12/18 11/12/18 Previous Rx's Medication Instructions Recorded levofloxacin 750 mg PO DAILY #6 tab 10/28/18 Allergies Allergy/AdvReac Type Severity Reaction Status Date / Time adhesive Allergy Unverified 10/28/18 15:39 General CONRAD: 2 Review of Systems Review of Systems 01/01 Review of Systems completed and is negative except as stated above in HPI (Systems reviewed: Const, Eyes, ENT, Resp, CV, GI, , MSK, Skin, Neuro) [facility] Medical History BPH (benign prostatic hyperplasia) (Chronic) Chordoma of spine (Chronic) Chronic back pain (Acute) Constipation (Chronic) Disorder of meninges (Acute) Essential hypertension (Acute) Hyperlipidemia (Acute) Impotence (Acute) Right carotid artery occlusion (Chronic) Sacral ulcer (Chronic) Urinary retention (Chronic) Surgical History S/P spinal surgery (Acute) Social History Smoking/Tobacco Use Status: Former Tobacco Use Alcohol Intake: never Substance use type: does not use Do you need help understanding health information?: Rarely current occupation: Retired Current gender identity: male Do you feel safe at home: Yes Do you feel safe in your relationship?: Yes Exam Narrative Exam Narrative: Vitals: Afebrile. He is mildly tachycardic and definitely tachypneic with saturations on 2 L nasal cannula at 89 to 90%. Blood pressure is normal. Const: Thin almost cachetic elderly male in mild respiratory distress. HEENT: NC/AT. Normal facial exam. Eyes: Normal conjunctiva and sclera. Neck: Supple. Trachea midline. Lungs: Tachypneic with mild respiratory distress. Diminished breath sounds bilaterally at the bases with corresponding rhonchi as well. Cor: RRR without murmur/gallop. Good radial pulses. GI: Soft. NT/ND. No guarding or rebound. Neuro: A+O x 3. CN grossly in tact. Baseline LE weakness from spinal surgeries/chordoma. Ext: No C/C/E. No deformity or tenderness. Skin: Warm and dry without rash.
--- NOTE | 2018-11-12 03:46 | DI.CT_ITS ---
SYMPTOM/DIAGNOSIS: SUDDEN ONSET OF SOB/RIGHT BACK PAIN CHEST CT FOR PULMONARY EMBOLISM: CT angiography was performed with multi slice acquisition and multi planar and 3D reconstruction. Comparison is made with 28 October 2018. The aorta is well opacified with IV contrast. Pulmonary arteries are suboptimally opacified. There are no gross pulmonary emboli or evidence of aortic dissection. There is consolidation of both lung bases, right greater than left. There is a large amount of mucus plugging particularly on the right. Bilateral pulmonary nodules are again noted. No pneumothorax or acute rib or spine fractures are seen. IMPRESSION: Increased bilateral lower lobe infiltrates, right greater than left. No evidence of pulmonary emboli.
[2018-11-12 04:22] LABS: Abs Immature Grans 0.01 k/cumm (0.0-0.09); Absolute Basophil Count 0.01 k/cumm (0.0-0.2); Absolute Eosinophil Count 0.27 k/cumm (0.0-0.7); Absolute Lymphocyte Count 0.71 k/cumm (1.2-3.4); Absolute Monocyte Count 0.43 k/cumm (0.11-0.7); Absolute Neutrophil Count 3.72 k/cumm (1.2-6.7); Basophils % 0.2; Eosinophils % 5.2; HCT 47.4 % (40.0-50.0); HGB 15.6 g/dL (13.5-17.5); Immature Grans % 0.2; Lymphocytes % 13.8; Mean Corp. HGB Concentration 32.9 g/dL (32.0-36.0); Mean Corpuscular Hemoglobin 28.9 pg (27.0-33.0); Mean Corpuscular Volume 87.8 fL (80-95); Mean Platelet Volume 8.7 fL (8.0-11.0); Monocytes % 8.3; Neutrophils % 72.3; Platelet Count 290 x1000/uL (130-400); RBC Distribution Width 14.1 % (11.8-14.1); White Blood Cell Count 5.15 k/cumm (4.4-10.8)
[2018-11-12 04:36] LABS: Anion Gap 6.1 mmol/L (3-11); BUN 12 mg/dL (7-18); CO2 32.9 mmol/L (21.0-32.0); CREATININE 0.62 mg/dL (0.70-1.30); Calcium 8.7 mg/dL (8.5-10.1); Chloride 101 mmol/L (98-107); Glucose 100 mg/dL (70-100); Potassium 4.1 mmol/L (3.5-5.1); Sodium 140 mmol/L (136-145); Troponin I < 0.05 ng/mL (0.00-0.06)
--- NOTE | 2018-11-12 05:32 | DI.VRAD_ITS ---
EXAM: CT Angiography Chest With Contrast EXAM DATE/TIME: 11/12/2018 3:49 AM CLINICAL HISTORY: 68 years old, male; Shortness of breath; Other: R back pain; Patient HX: Sudden onset sob/right back pain; Additional info: Previous HX of CA; Recent treatment for pna TECHNIQUE: Imaging protocol: Computed tomographic angiography images of the chest with intravenous contrast using CT angiography protocol. 3D rendering: MIP reconstructed images were created and reviewed. COMPARISON: CT CHEST PE CTA 10/28/2018 3:51 PM FINDINGS: Pulmonary arteries: Suboptimal, but adequate contrast bolus. No obvious pulmonary emboli. Aorta: Unremarkable. No aortic aneurysm. No aortic dissection. Lungs: Large right lower lobe consolidation. Small left lower lobe consolidation. Multiple low density pulmonary nodules measuring up to 2.3 cm. Large amount of lower lobe mucus plugging. Pleural space: Unremarkable. No pneumothorax. No pleural effusion. Heart: Unremarkable. No pericardial effusion. No obvious heart strain. Lymph nodes: Unremarkable. No enlarged lymph nodes. Bones/joints: Unremarkable. No acute fracture. Soft tissues: Unremarkable. IMPRESSION: Lower lobe consolidations have increased as has the mucus plugging. Stable pulmonary nodules. Dictated and Authenticated by: Brennon Arguelles MD. Ordering:CHARO Walden MD
[2018-11-12] MEDS: Normal Saline 1,000 ML 150 ML IV ×3 (05:40→22:45)
[2018-11-12] MEDS: Normal Saline Flush 10 ML SYR IVP ×2 (05:54→14:27)
[2018-11-12] MEDS: AZITHROMYCIN 500 MG in Normal Saline 250 ML 250 MG IVPB (06:37)
[2018-11-12 06:51] LABS: Magnesium 1.9 mg/dL (1.8-2.4); TSH (W/Ref FT4) 11.08 uIU/mL (0.36-3.74)
[2018-11-12 07:28] LABS: FREE T4 0.95 ng/dL (0.76-1.46)
--- NOTE | 2018-11-12 07:35 | W.PM.HP.N ---
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 He states that he was walking after spinal surgery and before having his recent respiratory symptoms which have kept him in bed. He has no fever or increased white count but progressive infiltrates being suggestive of plugging but also think about aspiration with his inability to sit up while he eats. We will continue broad-spectrum IV antibiotics and aggressive respiratory treatments with nebulizer treatments, acapella and percussion. CT scan also showed multiple nodules with patient states have been stable. Patient is a full code and this will be respected. 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 We will continue occupational therapy and physical therapy. (3) Hypothyroidism: Start date: 11/12/18 Current visit: Yes Status: Acute Patient does have an elevated TSH with low normal free T4. This can be evaluated further before initiating supplement but can be addressed as an outpatient. I do not think this is contributing to his acute process. Qualifiers: Hypothyroidism type: acquired Qualified Code(s): E03.9 - Hypothyroidism, unspecified History of Present Illness Chief Complaint: Dyspnea with back pain and hypoxemia. Narrative: This is a 68-year-old gentleman who was seen in the ED October 29, [address] for back pain and CT of the chest with PE protocol was negative for pulmonary embolus but did showed a right lower lobe consolidation. He was put on oral antibiotics and sent back to the rehab center where he was was going to rehabilitation for decreased ability to walk after repeat his surgery of his spine for chordoma. He has had multiple back surgeries and has chronic back pain. The patient finds it difficult to sit up in bed because of his immobility of his neck after multiple surgeries and does have some difficulty eating but denies aspiration. In the ED he was evaluated again with this presentation of coughing up a mucous plug and having back pain with dyspnea and repeat CT of the chest revealed a progressive right lower lobe infiltrate and new left lower lobe infiltrate. He had no fever or elevated white count and was placed on broad-spectrum antibiotics because of progressive pneumonia with his debilitated state and possible aspiration being institutionalized recently. He was hypoxic with some mucus plugging as manifested by the patient coughing up a large amount of mucus prior to reporting to the ED with some correction of his hypoxemia and by CT of the chest revealing the same. The patient denied any hemoptysis his cough, he did have new hypoxemia on O2 supplement and did not require positive pressure treatments. Patient is a full code. Review of Systems Review of Systems 13 point review of systems otherwise unrevealing or stable. Patient weight appears to have been stable. He has no cardiovascular complaints with no chest pain or peripheral edema. He has had no fevers. He has no focal neurological complaints other than generalized weakness in his lower extremities after his recent spinal cord surgery for recurrent chordoma. [facility] Medical History BPH (benign prostatic hyperplasia) (Chronic) Chordoma of spine (Chronic) Chronic back pain (Acute) Constipation (Chronic) Disorder of meninges (Acute) Essential hypertension (Acute) Hyperlipidemia (Acute) Impotence (Acute) Right carotid artery occlusion (Chronic) Sacral ulcer (Chronic) Urinary retention (Chronic) Surgical History S/P spinal surgery (Acute) Social History Smoking/Tobacco Use Status: Former Tobacco Use Alcohol Intake: never Substance use type: does not use Do you need help understanding health information?: Rarely current occupation: Retired Current gender identity: male Do you feel safe at home: Yes Do you feel safe in your relationship?: Yes Meds Home Medications Medication Instructions Recorded Confirmed Type acetaminophen 650 mg PO Q4H PRN PRN 09/20/18 11/12/18 History bisacodyl 10 mg PO Q12H PRN 09/20/18 11/12/18 History cyclobenzaprine 10 mg PO TID PRN 09/20/18 11/12/18 History diclofenac sodium 4 g TOPICAL PRN PRN 09/20/18 11/12/18 History docusate sodium 100 mg PO BID PRN 09/20/18 11/12/18 History docusate sodium [Colace] 100 mg PO BID 09/20/18 11/12/18 History finasteride 5 mg PO DAILY AM 09/20/18 11/12/18 History magnesium citrate PO PRN PRN 09/20/18 History magnesium hydroxide [Milk of 09/20/18 History Magnesia] oxycodone 5 mg PO PRN PRN 09/20/18 11/12/18 History polyethylene glycol 3350 [Miralax] 09/20/18 History sennosides [senna] 09/20/18 History albuterol sulfate 1.25 mg INHALATION Q6H PRN PRN 10/28/18 11/12/18 History levofloxacin 750 mg PO DAILY #6 tab 10/28/18 11/12/18 Rx tamsulosin 0.8 mg PO DAILY AM 10/28/18 11/12/18 History ibuprofen 400 mg PO BID 11/12/18 11/12/18 History Allergies Allergy/AdvReac Type Severity Reaction Status Date / Time adhesive Allergy Unverified 10/28/18 15:39 Exam Narrative Exam Narrative: General: Patient appears older than stated age in moderate distress from his discomfort of the back but no respiratory distress. He is alert and oriented x3. HEENT: Normocephalic, eyes with pupils equal and reactive light symmetrically and extraocular movement intact with sclera anicteric, or mucosa dry with patient edentulous, ears normal. Neck: Marked decreased range of motion with tenderness to any movement, no JVD. Lungs: Decreased aeration both bases more on the left than right by my exam though CT scan shows worse on the right. Bronchovesicular breath sounds diffusely with rhonchi but no focalizing rales. Dullness to percussion of both bases. Back: Marked decreased range of motion with loss of lordotic curve and decreased range of motion of the neck mostly with straightening of the normal curve. No CVA tenderness. Abdomen: Soft, nontender with bowel sounds positive in all quadrants. No palpable hepatomegaly. Genitalia/rectal: Exam deferred. Patient does have a chronic indwelling Motta catheter. Extremities: Without clubbing cyanosis or pitting edema. Skin: Pale, warm and dry. No rashes noted but diffuse actinic changes over sun exposed areas. Neuro: Decreased motor strength lower extremities with patient able to move his feet but unable to lift his legs, upper extremity strength appears normal. Cranial nerves II through XII grossly intact. Psych: Normal mood, normal affect with normal variation. Remote and recent memory intact. Results Imaging Imaging Studies: EXAM: CT Angiography Chest With Contrast EXAM DATE/TIME: 11/12/2018 3:49 AM CLINICAL HISTORY: 68 years old, male; Shortness of breath; Other: R back pain; Patient HX: Sudden onset sob/right back pain; Additional info: Previous HX of CA; Recent treatment for pna TECHNIQUE: Imaging protocol: Computed tomographic angiography images of the chest with intravenous contrast using CT angiography protocol. 3D rendering: MIP reconstructed images were created and reviewed. COMPARISON: CT CHEST PE CTA 10/28/2018 3:51 PM FINDINGS: Pulmonary arteries: Suboptimal, but adequate contrast bolus. No obvious pulmonary emboli. Aorta: Unremarkable. No aortic aneurysm. No aortic dissection. Lungs: Large right lower lobe consolidation. Small left lower lobe consolidation. Multiple low density pulmonary nodules measuring up to 2.3 cm. Large amount of lower lobe mucus plugging. Pleural space: Unremarkable. No pneumothorax. No pleural effusion. Heart: Unremarkable. No pericardial effusion. No obvious heart strain. Lymph nodes: Unremarkable. No enlarged lymph nodes. Bones/joints: Unremarkable. No acute fracture. Soft tissues: Unremarkable. IMPRESSION: Lower lobe consolidations have increased as has the mucus plugging. Stable pulmonary nodules. Dictated and Authenticated by: Brennon Arguelles MD. Labs : 11/12/18 04:14 11/12/18 04:14 Laboratory Results - last 24 hr 11/12/18 11/12/18 11/12/18 04:14 04:14 04:15 WBC 5.15 RBC 5.40 Hgb 15.6 Hct 47.4 MCV 87.8 MCH 28.9 MCHC 32.9 RDW 14.1 Plt Count 290 MPV 8.7 Immature Gran % 0.2 Neutrophils % 72.3 Lymphocytes % 13.8 Monocytes % 8.3 Eosinophils % 5.2 Basophils % 0.2 Absolute Neutrophils 3.72 Absolute Lymphocytes 0.71 L Absolute Monocytes 0.43 Absolute Eosinophils 0.27 Absolute Basophils 0.01 Sodium 140 Potassium 4.1 Chloride 101 Carbon Dioxide 32.9 H Anion Gap 6.1 BUN 12 Creatinine 0.62 L Estimated GFR/1.73 m2 >= 60.00 Glucose 100 Calcium 8.7 Magnesium 1.9 Troponin I < 0.05 TSH 11.08 H Free T4 0.95 Last Vital Signs Temp 36.6 C 11/12/18 03:40 Pulse 97 H 11/12/18 03:46 Resp 17 11/12/18 06:20 BP 120/74 11/12/18 03:46 Pulse Ox 93 L 11/12/18 05:30
[2018-11-12] MEDS: Albuterol/Ipratropium 3 ML UPD VIAL UPD ×4 (07:49→23:59)
--- NOTE | 2018-11-12 08:24 | PDOC.CMIN ---
- If Service Date Differs Date of service: 11/12/18 Time of Service: 08:24 Care Management Initial Assess REASON FOR HOSPITALIZATION:: Bilateral Pneumonia PAST MEDICAL HISTORY/PAST SURGICAL HISTORY:: Medical History: BPH (benign prostatic hyperplasia) (Chronic). Chordoma of spine (Chronic). Chronic back pain (Acute). Constipation (Chronic). Disorder of meninges (Acute). Essential hypertension (Acute). Hyperlipidemia (Acute). Impotence (Acute). Right carotid artery occlusion (Chronic). Sacral ulcer (Chronic). Urinary retention (Chronic). Surgical History: S/P spinal surgery (Acute) PREVIOUS FUNCTIONAL STATUS/SOCIAL/FAMILY SUPPORTS:: Maurice lives alone in a single family home in [place], [place] It has 3 levels but he lives only on one. Maurice has 2 daughters. Both of them live locally with their families and Maurice gets to see his grandchildren on a regular basis. Maurice has been retired for about 15 years. 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 His custodial was triggered by the need to have surgery for a chordoma in his neck. Prior to his most recent illness and surgeries, Maurice was independent with all care. CURRENT FUNCTIONAL STATUS:: Maurice was in a semi-reclining positionin the bed when CM came to see him. He was pleasant and talkative and exhibited a good sense of humor throughout the conversation. Maurice has been at [facility] for about 8 weeks. He [place] there [place] [facility] [place] having had spine surgery which left him without the ability to walk. He states that he had been making great progress and was walking the entire length of the hallway with a walker before he developed pneumonia. He described [facility] as a camp' and feels imprisoned there. He states he longs to be back home in [place] and is working hard to ensure that he meets that goal. ADVANCE DIRECTIVES:: None on file Has patient been provided with information about the portal?: No Did the patient sign up for the portal?: No CODE STATUS:: Full Code INSURANCE COVERAGE / FINANCIAL ISSUES:: Medicare. BS CURRENT HOME/COMMUNITY SERVICES/EQUIPMENT:: Maurice has had an extended stay at [facility] where he receives rehab services. PRIMARY CARE PHYSICIAN:: Jennifer Marc POTENTIAL DISCHARGE NEEDS:: Follow up with PCP and discharge plan of care PATIENT/FAMILY EDUCATION NEEDS:: Discharge plan, limitations, follow up, Ask Me Three. TRANSPORTATION:: will depend on plan of care. PLAN:: Maurice remains acute level of care. He will likely return to [facility] when ready but he would prefer to remain at [facility] and return home from here. He realizes that that is probably not a realistic goal. Maurice may require transfer to a tertiary care facility if bronchoscopy is necessary. CM will continue to support patient, family and identified discharge needs.
[2018-11-12] MEDS: Ibuprofen 400 MG TAB PO ×2 (08:47→19:53)
[2018-11-12] MEDS: Heparin 5,000 UNITS/ML VIAL 5000 UNITS SC ×3 (08:48→23:59)
--- NOTE | 2018-11-12 11:07 | PHARADMIT ---
Addendum entered by Cyrus Dodson III 11/16/18 15:30: Pharmacy Note Subjective Patient with bilateral pneumonia (aspiration?), very debilitated, (can not perform ADL getting OT& PT. Objective vS-OK pain:08/28 SCr-0.47 Lytes, H&H,WBC,Plts-OK, Wgt-63.5 kg No BM noted yet Assessment Ceftazadime continues, Vancomycin dc'd Steroids to switch to PO Plan Palliative care consult, Addendum entered by Supriya Quintanilla 11/15/18 18:02: Date: [] Referring Doctor: [] PT Orders: PT Consult for [] Precautions: [] Patient Profile/Admitting Diagnosis: Pt is a [] admitted for [] diagnosed with []. PMHX: [] Social History/Home Situation: [] Equipment owned/DME: [] SUBJECTIVE: Symptoms: Onset of symptoms: [] Trauma: [] Yes [] No Exacerbating Factors: [] Relieving Factors: [] Types of Dizziness: [] Headaches: [] Yes [] No Balance Deficits: [] Yes [] No Hearing Loss: [] Yes [] No Tinnitis: [] Yes [] No Functional Limitations: [] OBJECTIVE: General Observation: [] Mental Status: [] Pain: [] Vital Signs: [] (BP- check for orthostatic hypotension) BP supine: [] BP sitting: [] BP standing [] HR: [] Oxygen: [] ROM: [] ROM Cervical Spine : [] Vertebral Artery Screening: [] Positive [] Negative Sustained End Range of Motion: (+ or ? for dizziness) [] Positive [] No ROM RUE: [] L UE: [] R LE: [] LLE: [] STRENGTH: R UE: [] L UE: [] R LE: [] LLE: [] SENSATION: [] NEUROLOGICAL: [] Proprioception: Finger to Nose [] Limb Direction [] Fine Motor: Digital Finger [] Rhomberg: [] OCCULOMOTOR Visual Tracking: [] Head Thrust: [] Head Shaking (+ or ? for nystagmus) [] Positive [] No Vestibular Ocular Reflex (VOR): [] VESTIBULAR TESTING Rapid Head Nods (+) (-) Yes [] [] No [] [] Halpike Testing (BBPV): [] BED MOBILITY/TRANSFERS: Supine-sit: [] Sit-supine: [] Sit-Stand: [] Stand-sit: [] Bed-Chair: [] Chair-bed:[] GAIT: [] BALANCE: [] Static sitting: [] Dynamic Sitting: [] Static Standing: [] Dynamic Standing: [] SPECIAL TESTS: [] Mobility Limitations Standardized Measure: [facility] AM -PAC ?6 clicks? Basic Mobility Inpatient Short Form: [] raw score: [] standardized score: [] CMS score: [] CMS modifier: [] INFORMED CONSENT/EDUCATION: Pt instructed in purpose of PT Consult and plan of care [] PATIENT EDUCATION PRECAUTIONS POST TREATMENT: [] No Bending over or rapid head movements HOB elevated > 45 degrees Don?t Sleep on Affected Side Drink plenty of water and avoid high salt intake ASSESSMENT: Patient is a [] year old [] referred to physical therapy services with diagnosis of []. Patient presents with clinical signs and symptoms consistent with [] as demonstrated by the following impairment level findings: [] Impairments are contributing to the following functional limitations: AMPAC score []% Patient is assessed as a Low 00842 [] Moderate 24584 [] High 16072 complexity based on the following: History: [] Examination: [] Presentation: [] Decision Making: Based on AMPAC score of [] GOALS 1. Supine-sit: [] 2. Sit-Supine: [] 3. Sit-Stand:[] 4. Stand-sit: [] 5. Bed-Chair: [] 6. Chair-bed:[] 7. Gait: [] PLAN OF CARE/TREATMENT PLAN: 1-2x/day, 7 days/ week Plan of care has been reviewed with the CLIENT INTEGRATION MANAGER providing the service under Physical therapy direction. Initiate PT plan of care for strengthening, bed mobility, transfer training, gait training, use of assistive devices, balance training, and stair training. DISCHARGE RECOMMENDATIONS: [] TREATMENT TIME/MINUTES/CODES: [] Thank you for this referral. Please do not hesitate to contact me with any questions or concerns regarding this patient's POC. Pharmacy Note Subjective still no BM Objective VS ok, lytes good Micro sputum: normal jeison Micro blood: no growth x72h Assessment Vanco dc'd since sputum negative (Vanco trough yesterday high and adjusted) Ceftazidime continues day#4 (bilateral, aspiration Pneumonia) Oxycodone dose increased to 10mg for Breakthrough pain Pt's own Salonpas gel entered....not avail IV steroids being tapered...watch for switch to oral Possibly some more agressive bowel meds needed Plan possible discharge to [facility] on Tuesday Addendum entered by Jami Lemons 11/13/18 14:49: Pharmacy Note Subjective pt not good candidate for manual percussion due to spinal cord issues per morning report, being offered other various cough assist devices Objective VS-ok Assessment azithromycin discontinued vanco and ceftazidime continue (day 2) more bowel meds ordered today (now, scheduled and PRN) vanco trough came back low, extrapolated trough was 13.7, dose changed to 1250 mg Q8H MRSA-negative; blood cultures-pending; sputum culture-ordered Plan vanco trough ordered for tomorrow Original Note: Admission Pharmacy Clinical Review Bilateral pneumonia with hypoxemia Code Status Full Code Current Weight 61.4 kg Renally Cleared and Narrow Therapeutic Index Meds Crcl ~76.00mL/min current meds okay QTc Value / Action Taken QTc 440 BP Control, Fever BP 103/70 afebrile Electrolytes reviewed within normal limits DVT Prophylaxis heparin Opiate Usage / Scheduled Bowel Regimen Ordered prn/prn Plt/SCr for Heparin / Enoxaparin plt 290 SCr 0.62 INR for Warfarin n/a H/H stable, WBC/Bands h/h 15.6/47.4 wbc 5.15 Antibiotic appropriateness azithromycin, ceftazidime, vanco Cultures and Sensitivities MRSA-pending Surgical ABX d/c within 24 hr n/a DM control / Insulin Dosing BG 100 none Heart Failure (Check EF%) (FADI's, B-Block, Diuretics) none IV to PO Switch n/a Home Meds Reviewed -separate admin of mangesium hydroxide from bisacodyl and levolfoxacin; separate admin of magnesium citrate from levofloxacin -multiple ROPE MACHINE SETTER depressants: cyclobenzaprine, oxycodone Home Meds Not Ordered diclofenac (not on med list from [facility]), levofloxacin (has other abx ordered), magnesium citrate, senna Comments pt has mucous plug; low threshold to transfer for bronchoscopy per
--- NOTE | 2018-11-12 11:56 | PT.INNT ---
Date of service: 11/12/18 Time of Service: 11:15 PT Notes Spoke with Maurice this morning. Reports to me he came in 2 AM , and is exhausted. Considering his non-urgent order he would like to hold on and Tuesday. He complains of a lot of back pain in the rib region, which he relates to his pneumonia, and thinks that he needs to get this under control before participation. Recently underwent spinal surgery, but has been able to ambulate with a walker for about 4 weeks, decreasing physical ability over past week because of his pneumonia. He does not think he is walked for over 1 week's time he has been at [facility] for 9 weeks, prior to this currently in his own home in [place], [place]. He wishes to return home. He has a 3 level home, 3-1/2 steps to enter.
--- NOTE | 2018-11-12 11:59 | W.SPEECHEVAL ---
Date of service: 11/12/18 Time of Service: 11:30 Speech Therapy Evaluation Note: Clinical bedside swallow evaluation Reason for Referral: This pt, known to [facility] from [facility], referred tot [facility] services with recent diagnosis of bilateral pneumonia. Previous Status: FEES on 09/2018 revealed narrow airway and unilateral vocal fold immobility. Recommended liquidized solids (based on pt preference, complaints of xerostomia) and [facility] treatment. With treatment, [facility] advanced pt diet to regular solids with use of moisteners. Medical History (Include any history of Dysphagia, Aspiration, and/or Pneumonia): bilateral pneumonia, back pain, head and neck cancer, cervical fusion Current Diet/Liquid Consistency: regular/thin Feeding Method: self with set up Respiratory Status: nasal cannula Positioning and Mobility: upright in bed; cannot tolerate long amounts of time upright Cognitive Status: WNL Oral Peripheral Exam: Facial- WFL Lips - WFL Tongue - WFL Jaw- WFL Hard Palate - WFL Soft Palate - WFL Uvula- - WFL Dentition- upper and lower dentures Pharyngeal Exam: Volitional Cough- weak Volitional Swallow - WFL Gag Reflex : not tested Soft Palate - WFL Vocal Quality: weak, hoarse Comments: Trial Consistencies: Thin__x_ Nectar___ Honey___ Pudding___ Regular__x__ Bite size___Chopped___Mechanical Soft_x__Ground___Puree___Pudding_x__ Oral Preparatory Phase: Lip seal via spoon/cup: WFL_x__ Impaired___ Bolus Containment: WFL_x__ Impaired___ Oral Stage: Bolus Formation: WFL__x_ Impaired___ Bolus Propulsion: WFL__x_ Impaired___ Bolus Accumulation: WFL_x__ Impaired___ Mastication: WFL_x__ Impaired___ Pharyngeal Stage: Laryngeal Elevation: WFL _x__ Impaired ___ Vocal Quality after swallow: normal Coughing: No_x__ Yes ___ Before Swallow___ During Swallow___ After Swallow___ Esophageal Stage: Nasal Regurgitation___ Oral Regurgitation___ C/O Fullness Around Sternum___ Signs/Symptoms of Aspiration (please specify): Clinical Summary: Pt presents with pharyngeal dysphagia as diagnosed from most recent FEES. 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 Pt positioning is not ideal for before and after oral intake; it is possible pt is aspirating refluxed material. Encouraged pt to remain as upright as possible during and following meal. Pt has a good history of adhering to recommended swallow strategies. MD may want to consider a PPI. Recommended Diet/Liquid Consistency: regular/thin (add extra sauces, gravies, butter and condiments) Recommended Adaptive Equipment (please specify): built up utensils Plan of Treatment (check all that apply): Aspiration Precautions_x__ Reflux Precautions__x_ Therapeutic Feeding Sessions___ Compensatory Strategies for Safe Swallowing_x__ Therapeutic Exercises___ Therapeutic Activities___ Other: Longterm Goals: 1. Pt will consume least restrictive diet textures with <10% aspiration or penetration. Short Term Goals: 1. [facility] to provide assessment of diet tolerance and review education re: safe swallow strategies. Frequency/Duration of Treatment: 1 occurrence [facility] Printed Name: Santa Partida Signature/License #:Santa Partida [place] [facility]/ [facility], [place] [phone]
[2018-11-12] MEDS: cefTAZidime 2,000 MG in Normal Saline 100 ML 200 MG IVPB ×2 (12:57→19:54)
--- NOTE | 2018-11-12 14:01 | W.PM.PROGNOT ---
Date of Service Date of service: 11/12/18 Time of Service: 14:02 Subjective Interval history since last seen: Patient seen briefly. Labs and chart reviewed. Mr De Guzman states that he is feeling much better now than when he first got here. He states he was able to bring up duarte sputum this afternoon. He is open to trying a percussion bed. He is not sure he would want to have a bronchoscopy or any procedure, even if it were indicated. He states he has a difficult airway. He is not sure he is interested in talking to palliative care at this time, but he will think about it. He had a bad experience with palliative care at a different hospital, he stated. I have initiated steroids and PPI's based on his exam (does have rhonchi). He is on humidified heated high flow O2. I added mucinex. Blood cultures to be collected. Trend procalcitonin. Objective Objective Clinical Data: Abnormal lab results 11/12/18 11/12/18 11/12/18 Range/Units 04:14 04:14 04:15 Absolute Lymphocytes 0.71 L (1.2-3.4) k/cumm Carbon Dioxide 32.9 H (21.0-32.0) mmol/L Creatinine 0.62 L (0.70-1.30) mg/dL TSH 11.08 H (0.36-3.74) uIU/mL Vital Signs Temperature 35.9 C L 11/12/18 09:01 Temperature Source Tympanic 11/12/18 08:07 Pulse 91 H 11/12/18 09:01 Pulse Rhythm Regular 11/12/18 09:01 Pulse 86 11/12/18 06:20 Respiratory Rate 20 11/12/18 09:01 Respiratory Effort 11/12/18 09:01 Respiratory Depth Normal 11/12/18 09:01 Respiratory Pattern Normal 11/12/18 09:01 Blood Pressure 103/70 11/12/18 09:01 Blood Pressure Mean 86 11/12/18 03:46 Pulse Oximetry 91 L 11/12/18 09:01 Oxygen Delivery Method Hi Flow System 11/12/18 09:30 Oxygen Flow Rate 40 11/12/18 09:30 Fraction of Inspired Oxygen (FIO2) 30 11/12/18 09:30 Pain Level 3 11/12/18 09:01 Comment 11/12/18 08:00 Intake & Output 11/11/18 11/12/18 11/12/18 23:59 11:59 23:59 Intake Total 370 / 1370 1000 / 1370 Balance 370 / 1370 1000 / 1370 Weight 61.4 kg Intake: IV 250 / 1250 1000 / 1250 Oral 120 / 120 Other: Urine Appearance Sediment Laboratory Results WBC 5.15 k/cumm (4.4-10.8) 11/12/18 04:14 RBC 5.40 m/cumm (4.50-6.00) 11/12/18 04:14 Hgb 15.6 g/dL (13.5-17.5) 11/12/18 04:14 Hct 47.4 % (40.0-50.0) 11/12/18 04:14 MCV 87.8 fL (80-95) 11/12/18 04:14 MCH 28.9 pg (27.0-33.0) 11/12/18 04:14 MCHC 32.9 g/dL (32.0-36.0) 11/12/18 04:14 RDW 14.1 % (11.8-14.1) 11/12/18 04:14 Plt Count 290 x1000/uL (130-400) 11/12/18 04:14 MPV 8.7 fL (8.0-11.0) 11/12/18 04:14 Immature Gran % 0.2 11/12/18 04:14 72.3 11/12/18 04:14 13.8 11/12/18 04:14 8.3 11/12/18 04:14 5.2 11/12/18 04:14 0.2 11/12/18 04:14 Absolute Neutrophils 3.72 k/cumm (1.2-6.7) 11/12/18 04:14 Absolute Lymphocytes 0.71 k/cumm (1.2-3.4) L 11/12/18 04:14 Absolute Monocytes 0.43 k/cumm (0.11-0.7) 11/12/18 04:14 Absolute Eosinophils 0.27 k/cumm (0.0-0.7) 11/12/18 04:14 Absolute Basophils 0.01 k/cumm (0.0-0.2) 11/12/18 04:14 Sodium 140 mmol/L (136-145) 11/12/18 04:14 Potassium 4.1 mmol/L (3.5-5.1) 11/12/18 04:14 Chloride 101 mmol/L (98-107) 11/12/18 04:14 Carbon Dioxide 32.9 mmol/L (21.0-32.0) H 11/12/18 04:14 6.1 mmol/L (3-11) 11/12/18 04:14 BUN 12 mg/dL (7-18) 11/12/18 04:14 0.62 mg/dL (0.70-1.30) L 11/12/18 04:14 >= 60.00 (mL/min/1.73m2) 11/12/18 04:14 Glucose 100 mg/dL (70-100) 11/12/18 04:14 Calcium 8.7 mg/dL (8.5-10.1) 11/12/18 04:14 Magnesium 1.9 mg/dL (1.8-2.4) 11/12/18 04:15 < 0.05 ng/mL (0.00-0.06) 11/12/18 04:14 TSH 11.08 uIU/mL (0.36-3.74) H 11/12/18 04:15 Free T4 0.95 ng/dL (0.76-1.46) 11/12/18 04:15
[2018-11-12] MEDS: methylPREDNISolone SUCC 125 MG VIAL 60 MG IVP ×2 (14:26→21:41)
[2018-11-12] MEDS: Pantoprazole 40 MG VIAL IVP (14:27)
[2018-11-12] MEDS: guaiFENesin 600 MG TABCR PO ×2 (14:27→19:53)
[2018-11-12 15:33] LABS: Procalcitonin < 0.1 ng/mL
[2018-11-12] MEDS: oxyCODONE 5 MG TAB PO ×3 (15:40→23:59)
[2018-11-12] MEDS: Cyclobenzaprine 10 MG TAB PO ×2 (15:41→19:54)
[2018-11-13] VITALS (13 sets, daily range): BP systolic 101–147; BP diastolic 64–92; PULSE 72–96; RESP 4–22; TEMP 32–36.6; O2SAT 93–97
[2018-11-13] MEDS: Acetaminophen 500 MG TAB 1000 MG PO (01:15)
[2018-11-13] MEDS: cefTAZidime 2,000 MG in Normal Saline 100 ML 200 MG IVPB ×3 (03:57→20:19)
[2018-11-13] MEDS: Tamsulosin 0.4 MG CAPCR 0.8 MG PO (04:41)
[2018-11-13] MEDS: oxyCODONE 5 MG TAB PO ×2 (04:41→16:56)
[2018-11-13] MEDS: Cyclobenzaprine 10 MG TAB PO ×2 (04:44→18:32)
[2018-11-13] MEDS: methylPREDNISolone SUCC 125 MG VIAL 60 MG IVP ×3 (06:28→22:03)
[2018-11-13] MEDS: AZITHROMYCIN 500 MG in Normal Saline 250 ML 250 MG IVPB (06:28)
[2018-11-13 06:51] LABS: HCT 39.2 % (40.0-50.0); HGB 13.2 g/dL (13.5-17.5); Mean Corp. HGB Concentration 33.7 g/dL (32.0-36.0); Mean Corpuscular Hemoglobin 29.3 pg (27.0-33.0); Mean Corpuscular Volume 86.9 fL (80-95); Mean Platelet Volume 8.6 fL (8.0-11.0); Platelet Count 295 x1000/uL (130-400); RBC 4.51 m/cumm (4.50-6.00); RBC Distribution Width 13.9 % (11.8-14.1)
[2018-11-13 07:08] LABS: Magnesium 1.8 mg/dL (1.8-2.4)
[2018-11-13 07:10] LABS: ALT 14 U/L (16-63); AST 14 U/L (15-37); Albumin 2.5 g/dL (3.4-5.0); Alkaline Phosphatase 60 U/L (46-116); Anion Gap 8.3 mmol/L (3-11); BUN 9 mg/dL (7-18); Bilirubin, Total 0.3 mg/dL (0.2-1.0); CO2 26.7 mmol/L (21.0-32.0); CREATININE 0.42 mg/dL (0.70-1.30); Calcium 8.5 mg/dL (8.5-10.1); Chloride 105 mmol/L (98-107); Glucose 146 mg/dL (70-100); Potassium 4.2 mmol/L (3.5-5.1); Sodium 140 mmol/L (136-145)
[2018-11-13] MEDS: guaiFENesin 600 MG TABCR PO ×2 (07:59→20:17)
[2018-11-13] MEDS: Finasteride 5 MG TAB PO (08:00)
[2018-11-13] MEDS: Ibuprofen 400 MG TAB PO ×2 (08:00→20:17)
[2018-11-13] MEDS: oxyCODONE-CR 10 MG TABCR 30 MG PO ×2 (08:00→20:17)
--- NOTE | 2018-11-13 08:00 | DI.RAD_ITS ---
SYMPTOM/DIAGNOSIS: FOLLOW UP PNA//MUCOUS PLUGGING PORTABLE CHEST: 13 NOVEMBER 2018 Comparison is made with 23 October 2018 chest x-ray and chest CT performed the previous day. There is now a right pleural effusion. The lungs are not well inflated. The film is rotated. There are again noted to be areas of bibasilar consolidation. There is hardware in the lower cervical spine. IMPRESSION: Bibasilar consolidation. Small right pleural effusion.
[2018-11-13] MEDS: Heparin 5,000 UNITS/ML VIAL 5000 UNITS SC ×3 (08:01→23:22)
[2018-11-13] MEDS: Normal Saline 1,000 ML 150 ML IV (08:09)
[2018-11-13 08:24] LABS: Procalcitonin < 0.1 ng/mL
--- NOTE | 2018-11-13 08:51 | OT.INIE ---
Occupational Therapy Notes Inpatient Occupational Therapy Evaluation Date: 11/13/18 Referring Doctor:Mayra Mcintyre MD OT Orders: Eval and Treat Precautions: Fall, Standard PATIENT PROFILE/ADMITTING DIAGNOSIS: Pt is a 68 year old male who was admitted to [facility] via Med Surg for diagnosis of Bilateral pneumonia, Mucus plugging of bronchi, Hypoxemia. Past Medical History: Medical History BPH (benign prostatic hyperplasia) (Chronic) Chordoma of spine (Chronic) Chronic back pain (Acute) Constipation (Chronic) Disorder of meninges (Acute) Essential hypertension (Acute) Hyperlipidemia (Acute) Impotence (Acute) Right carotid artery occlusion (Chronic) Sacral ulcer (Chronic) Urinary retention (Chronic) Surgical History S/P spinal surgery (Acute) Social History/Home Situation: Pt reports that he lives (I) and used to have HH services come to his home to (A) with ADLs/IADLs and functional mobility. He notes that [facility] but would like to go home if possible. Pt reports that he has a walk in shower at home, he was able to drive but cannot at this time due to numbness and tingling. 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 Pt is not at his baseline level of function. He has increased pain and is unable to perform his ADLs without increased (I). OT does not feel that pt would be safe or (I) if he returns home. Equipment owned/DME: MIGUEL padilla, [facility] with all DME's met. SUBJECTIVE: Pt was lying in bed, he was agreeable to OT session noting that that he would like to go home and not return to SNF because he feels that once he gets sensation back in his (B) UE he will be able to be (I) in all aspects of ADLs. OBJECTIVE: General Observation: Telemetry, IV (L) UE, pt is weak and closes his eyes multiple times throughout OT session. Mental Status: A&Ox3 Pain: c/o pain in lower back and c/o numbness and tingling in (B) hands and (R) LE ROM: RUE AROM WFL L UE AROM WFL STRENGTH: RUE Shoulder flexion 3/5, bicep 3+/5, tricep 4/5, farm management supervisor is symmetrical LUE Shoulder flexion 3/5, bicep 3+/5, tricep 4-/5, farm management supervisor is symmetrical FUNCTIONAL MOBILITY/ADLS: Transfers Unable to test as pt refuses. BATHING Pt was lying in bed, he refused performing bathing because of his pain, he would like to perform this with nursing. OT did discuss with pt the importance of having (I) in his ADL routines in order to maintain his (I). Pt verbalizes understanding but reports that he is in too much pain to perform this today. EATING Uses adaptive foam for utensil handles for decreased farm management supervisor strength. BALANCE: Unable to test as pt would not sit in bed without support due to pain. SPECIAL TESTS: Daily Activity Limitations Standardized Measure [facility] AM -PAC ?6 clicks? Daily Activity Inpatient Short Form: Raw score: 8 Standardized score: 22.86 CMS score: 85.69% INFORMED CONSENT/EDUCATION: Pt instructed in purpose of OT Consult and plan of care. ASSESSMENT: Patient is a 68-year-old male referred to occupational therapy services with diagnosis of Bilateral pneumonia, Mucus plugging of bronchi, Hypoxemia. Patient presents with clinical signs and symptoms consistent with dx, as demonstrated by the following impairment level findings/functional limitations: Pt is essentially bed ridden at this time due to pain which he reports as a 10/10, decreased functional activity tolerance, decreased functional mobility, decreased gross and fine motor control of (B) UE, decreased functional performance of ADL routines. AMPAC score 8, CMS score 85.69% Patient is assessed as a high 47848 complexity based on the following: History: See Above Examination: See Above Presentation: Evolving Decision Making: AMPAC score 8, CMS score 85.69% GOALS Goals x1 week 1. Transfers- Mod (A) to sitting on side of bed 2. Dressing- Sitting position pt will be able to perform UE dressing with min (A), LE with mod (A) 3. Bathing- sitting on side of bed (I) with UE, thighs and rony, max (A) lower legs 4. Toileting- on commode with mod (A) 5. Eating- (I) in sitting position PLAN OF CARE/TREATMENT PLAN: 1x/day, 5 days/ week x 1week Initiate Occupational Therapy Services for bathing, dressing, grooming, toileting, eating, transfer training. DISCHARGE RECOMMENDATIONS SNF based on pts current functional (I) in ADL and IADL routines. TREATMENT TIME/MINUTES/CODES 29868, 20 minutes (08:45) Bryanna Dao OTR/L [facility]
[2018-11-13] MEDS: Albuterol/Ipratropium 3 ML UPD VIAL UPD ×3 (09:20→23:22)
[2018-11-13 10:15] LABS: Vancomycin, Trough 13.1 ug/mL (10.0-20.0)
--- NOTE | 2018-11-13 11:49 | NUR.NOTE ---
Pt's mepilex on coccyx removed, last changed on 11/10. Dime size packing material fell out from approx 2x2cm tunneled wound. Cleansed with normal saline and applied new mepilex and repositioned pt on side. Let chargemaster analyst Jane know and was able to find orders from home health/rehab but did not specify any packing materials, needs wound consult.
--- NOTE | 2018-11-13 12:35 | IN_ITS ---
Date of service: 11/13/18 Time of Service: 08:19 PT Notes Inpatient Physical Therapy Evaluation Date: 11/13/2018 Referring Doctor: Mayra Mcintyre MD PT Orders: PT CONSULT: Limited ability Precautions: Fall. Enteric Cobtact precautions. Patient Profile/Admitting Diagnosis: Patient is an 68-year-old male patient with past medical history significant for chordoma of spine S/P spinal surgery who presented to the ED on 11/12/2018 with chief complaints of respiratory distress and right upper back pain. Patient is diagnosed with pneumonia and hypothyroidism. PMHX: Medical History BPH (benign prostatic hyperplasia) (Chronic) Chordoma of spine (Chronic) Chronic back pain (Acute) Constipation (Chronic) Disorder of meninges (Acute) Essential hypertension (Acute) Hyperlipidemia (Acute) Impotence (Acute) Right carotid artery occlusion (Chronic) Sacral ulcer (Chronic) Urinary retention (Chronic) Surgical History S/P spinal surgery (Acute) Social History/Home Situation: [facility] [place] [facility] and has required assistance with the use of wheelchair for all mobility ADL performance. Per nurse, patient has not walked since for over a month now due to persistent back pain. Current Functional Limitations: Dependent transfer. Non-ambulatory. Equipment Owned/DME: Patient is a [facility] resident and has had a wheelchair for mobility performance. All transfers done via mechanical lift. Subjective: Patient is agreeable to a PT consult and treatment today. He reports moderate pain on neck and back area with movement. He continues to go home and expressed that he does not want to go back to the SNF if possible. He denies headache, chest pain, and dizziness throughout PT session. Objective: General Observation: Patient on high flow oxygen supplementation via NC. Bilateral knee-high TEDS on. IV in R UE. Motta catheter in place. Anti- thromoboembolism pump in place. Mental Status: Alert and oriented as to place, person, and purpose Pain: 3-4/10 at rest, 4-5/10 with movement ROM: Right Upper Extremity: Shoulder Flexion WFL. Shoulder abduction WFL. Elbow flexion WFL. Wrist flexion WFL. Functional opening and closing of hand WFL. Left Upper Extremity: Shoulder Flexion WFL. Shoulder abduction WFL. Elbow flexion WFL. Wrist flexion WFL. Functional opening and closing of hand WFL. Right Lower Extremity: Hip flexion 0-30. Knee flexion 0-20. Knee extension -30. Ankle dorsiflexion WFL. Ankle plantarflexion WFL. Left Lower Extremity: Hip flexion 0-20. Knee flexion 0-10. Knee extension -40. Ankle dorsiflexion WFL. Ankle plantarflexion WFL. Strength: Right Upper Extremity: Shoulder flexors 3/5. Shoulder abductors 3/5. Elbow flexors 3+/5. Elbow extensors 3+/5. Bonding Machine Operator strong. Left Upper Extremity: Shoulder flexors 3/5. Shoulder abductors 3/5. Elbow flexors 3+/5. Elbow extensors 3+/5. Bonding Machine Operator strong. Right Lower Extremity: Hip flexors 3-/5. Hip abductors 3-/5. Knee flexors 3-/5. Knee extensors 3-/5. Ankle dorsiflexors 3/5. Ankle plantarflexors 3/5. Left Lower Extremity:Hip flexors 3-/5. Hip abductors 3-/5. Knee flexors 3-/5. Knee extensors 3-/5. Ankle dorsiflexors 3/5. Ankle plantarflexors 3/5. Bed Mobility/Transfers: Rolling moderate assist Supine to sit moderate assist with HOB at 40 degrees Sit to supine moderate assist with HOB at 40 degrees Sit to stand unable to test. Patient declined d/t pain and anxiety. Will re- attempt in the next session. Stand to sit unable to test. Patient declined d/t pain and anxiety. Will re- attempt in the next session. Bed to chair unable to test. Patient declined d/t pain and anxiety. Will re- attempt in the next session. Chair to bed unable to test. Patient declined d/t pain and anxiety. Will re- attempt in the next session. Gait: NT. Patient declined d/t pain and anxiety. Will re-attempt in the next session. Balance: Static Sitting: Fair Dynamic Sitting: Fair Static Standing: Patient declined d/t pain and anxiety. Will re-attempt in the next session. Dynamic Standing: Patient declined d/t pain and anxiety. Will re-attempt in the next session. Special Tests: Mobility Limitations Standardized Measure [facility] AM-PAC 6 clicks Basic Mobility Inpatient Short Form: Raw Score: 10 CMS Score: 77% defecit Informed Consent/Education: Patient instructed in purpose of PT consult and plan of care. Patient is agreeable to gradually building up sitting balance/tolerance and to attempt standing activity as tolerated. Assessment: Patient has reportedly not ambulated for over a month due to persistent back pain and anxiety level. Patient's level of motivation also limits goal setting at this time. Patient presents with clinical signs and symptoms consistent with current/admitting diagnoses that have resulted to mobility limitations, gait instability, generalized weakness, and impairment of motor control as demonstrated by the following impairment level findings: 1. Decreased strength to B LE major muscle groups 2. Impaired sitting balance 3. Inability to tolerate standing 4. Impaired activity tolerance 5. Pain limiting ability to move Impairments are contributing to the following functional limitations: 1. Dependent bed mobility skills 2. Increased dependence with transfers 3. Inability to safely ambulate without assistive device and physical assistance 4. Increase completion time for mobility ADL performance 5. Increased fall risk Patient is assessed as a [id number] moderate complexity based on the following: History: Patient is an 68-year-old male patient with past medical history as listed above now with diagnoses of pneumonia and hypothyroidism. Examination: Demonstrable impairment in strength, balance, and range of motion with underlying impairments and functional limitations as documented above Presentation:Evolving Decision Makin moderate complexity Goals: Goals X1 week 1. Supine-Sit independent 2. Sit-Supine independent 3. Sit-Stand minimal assist 4. Stand-Sit minimal assist 5. Bed-Chair minimal assist 6. Chair-Bed minimal assist 7. Fair static and dynamic standing balance/tolerance Plan of Care/Treatment Plan: 1-2x/day, 7 days/week x 1 week. Plan of care has been reviewed with the GRIZZLY WORKER providing the service under Physical Therapy direction. Initiate Physical Therapy intervention for strengthening, bed mobility, transfers, gait, stairs, balance training, use of assistive device. DISCHARGE RECOMMENDATIONS: Patient will benefit from long term facility placement in order to progress mobility level, strength, and balance to maximize mobility performance and reduce fall risk. No equipment needs at this time. TREATMENT CODE/TIME: 54631 x 30 minutes, 51527 x 12 minutes beginning at 9:12 AM. Thank you very much for this referral. Anne Loya PT, DPT, CLT [facility]
[2018-11-13] MEDS: Albuterol 2.5 MG/3 ML INH SOLN VIAL UPD (13:44)
--- NOTE | 2018-11-13 13:52 | PGE_ITS ---
Date of Service Date of service: 11/13/18 Time of Service: 13:52 Assessment and Plan (1) Bilateral pneumonia: Current visit: Yes Status: Acute Having failed outpatient treatment. Improving with azithromycin/vancomycin/ceftazidime. It is likely safe to d/c azithromycin. Now that the patient is bringing up sputum, obtain sputum culture. Continue steroids, nebs, humidified heated high flow. CXR today without any obvious lobe collapse - I think that the patient will be able to clear his mucuous plugging with the various cough assist devices we are offering him (vibrapep, IS; chest PT). 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 PT/OT consulted. (3) Elevated TSH: Current visit: Yes Status: Acute FT4 wnl. Will not initiate therapy at this time - follow up as outpatient. (4) Sacral ulcer: Current visit: No Status: Chronic Present on admission. Consult wound care (5) Urinary retention: Current visit: No Status: Chronic s/p byrd - follow up as outpatient (6) Constipation: Current visit: No Status: Chronic Provide a bowel regimen. Last BM 3 days ago. Patient previously required disimpaction. (7) DVT prophylaxis: Current visit: Yes Status: Acute Heparin SC, TEDs, SCD's (8) Discharge planning issues: Current visit: Yes Status: Acute Full code Not willing to talk to palliative care Subjective Interval history since last seen: Mr De Guzman has been able to bring up thick green sputum today several times. He complains of chest tightness anteriorly dieter aterally; thinks it started before he came to the hospital. Denies dizziness, chest pain, shortness of breath, nausea. Last BM 3 days ago. Exam Narrative Exam Narrative: General: very pleasant middle-aged male, appears to have a weaker voice, coughing while I am in the room, A&Ox3 HEENT: EOMI, MMM Heart: RRR, no m/r/g Lungs: rhonchi and rales B - these clear with coughing, but are still somewhat present GI: abdomen is soft, nontender, nondistended Extremities: no e/c/c BLE's Objective Objective Clinical Data: Abnormal lab results 11/13/18 11/13/18 Range/Units 06:35 06:35 WBC 3.60 L D (4.4-10.8) k/cumm Hgb 13.2 L D (13.5-17.5) g/dL Hct 39.2 L (40.0-50.0) % Creatinine 0.42 L (0.70-1.30) mg/dL Glucose 146 H (70-100) mg/dL AST 14 L (15-37) U/L ALT 14 L (16-63) U/L Total Protein 6.0 L (6.4-8.2) g/dL Albumin 2.5 L (3.4-5.0) g/dL Vital Signs Temperature 36.0 C L 11/13/18 11:28 Temperature Source Tympanic 11/13/18 11:28 Pulse 74 11/13/18 11:28 Pulse Rhythm Regular 11/13/18 08:57 Pulse 86 11/12/18 06:20 Respiratory Rate 19 11/13/18 11:28 Respiratory Effort 11/13/18 08:57 Respiratory Depth Normal 11/13/18 08:57 Respiratory Pattern Normal 11/13/18 08:57 Blood Pressure 121/84 11/13/18 11:28 Blood Pressure Mean 86 11/12/18 03:46 Pulse Oximetry 95 11/13/18 11:28 Oxygen Delivery Method Bi-pap 11/13/18 11:28 Oxygen Flow Rate 30 11/13/18 09:49 Fraction of Inspired Oxygen (FIO2) 36 11/13/18 09:49 Pain Level 4 11/13/18 11:28 Comment 11/12/18 19:29 Intake & Output 11/12/18 11/13/18 11/13/18 23:59 11:59 23:59 Intake Total 2640 / 3010 2422.5 / 2962.5 540 / 2962.5 Output Total 1500 / 1500 1850 / 1850 Balance 1140 / 1510 572.5 / 1112.5 540 / 1112.5 Weight 59.7 kg Intake: IV 2400 / 2650 1472.5 / 1772.5 300 / 1772.5 Oral 240 / 360 950 / 1190 240 / 1190 Output: Urine 1500 / 1500 1850 / 1850 Other: Urine Color Yellow Yellow Urine Appearance Clear Clear Comment Changed byrd bag 2/2 handle breaking Laboratory Results WBC 3.60 k/cumm (4.4-10.8) L D 11/13/18 06:35 RBC 4.51 m/cumm (4.50-6.00) 11/13/18 06:35 Hgb 13.2 g/dL (13.5-17.5) L D 11/13/18 06:35 Hct 39.2 % (40.0-50.0) L 11/13/18 06:35 MCV 86.9 fL (80-95) 11/13/18 06:35 MCH 29.3 pg (27.0-33.0) 11/13/18 06:35 MCHC 33.7 g/dL (32.0-36.0) 11/13/18 06:35 RDW 13.9 % (11.8-14.1) 11/13/18 06:35 Plt Count 295 x1000/uL (130-400) 11/13/18 06:35 MPV 8.6 fL (8.0-11.0) 11/13/18 06:35 Immature Gran % 0.2 11/12/18 04:14 72.3 11/12/18 04:14 13.8 11/12/18 04:14 8.3 11/12/18 04:14 5.2 11/12/18 04:14 0.2 11/12/18 04:14 Absolute Neutrophils 3.72 k/cumm (1.2-6.7) 11/12/18 04:14 Absolute Lymphocytes 0.71 k/cumm (1.2-3.4) L 11/12/18 04:14 Absolute Monocytes 0.43 k/cumm (0.11-0.7) 11/12/18 04:14 Absolute Eosinophils 0.27 k/cumm (0.0-0.7) 11/12/18 04:14 Absolute Basophils 0.01 k/cumm (0.0-0.2) 11/12/18 04:14 Sodium 140 mmol/L (136-145) 11/13/18 06:35 Potassium 4.2 mmol/L (3.5-5.1) 11/13/18 06:35 Chloride 105 mmol/L (98-107) 11/13/18 06:35 Carbon Dioxide 26.7 mmol/L (21.0-32.0) 11/13/18 06:35 8.3 mmol/L (3-11) 11/13/18 06:35 BUN 9 mg/dL (7-18) 11/13/18 06:35 0.42 mg/dL (0.70-1.30) L 11/13/18 06:35 >= 60.00 (mL/min/1.73m2) 11/13/18 06:35 Glucose 146 mg/dL (70-100) H 11/13/18 06:35 Calcium 8.5 mg/dL (8.5-10.1) 11/13/18 06:35 Magnesium 1.8 mg/dL (1.8-2.4) 11/13/18 06:35 0.3 mg/dL (0.2-1.0) 11/13/18 06:35 AST 14 U/L (15-37) L 11/13/18 06:35 ALT 14 U/L (16-63) L 11/13/18 06:35 60 U/L (46-116) 11/13/18 06:35 < 0.05 ng/mL (0.00-0.06) 11/12/18 04:14 6.0 g/dL (6.4-8.2) L 11/13/18 06:35 2.5 g/dL (3.4-5.0) L 11/13/18 06:35 < 0.1 ng/mL 11/13/18 06:35 TSH 11.08 uIU/mL (0.36-3.74) H 11/12/18 04:15 Free T4 0.95 ng/dL (0.76-1.46) 11/12/18 04:15 Vancomycin Trough 13.1 ug/mL (10.0-20.0) 11/13/18 09:40
[2018-11-13] MEDS: Pantoprazole 40 MG VIAL IVP (14:06)
[2018-11-13] MEDS: Senna TAB 1 TAB PO ×2 (14:15→20:17)
[2018-11-13] MEDS: Docusate Sodium 100 MG CAP PO ×2 (14:16→20:17)
--- NOTE | 2018-11-13 14:47 | CMPROGNOTE_ITS ---
- If Service Date Differs Date of service: 11/13/18 Time of Service: 14:47 Care Management Progress Note S/O: Damon was sitting up in bed when CM came to visit. He was pleasant and friendly, smiling and laughing throughout the conversation. Damon shared the history of his surgeries and a bit about his outlook on life and health care. He states he is really strongly motivated to continue to improve so that he can ultimately be discharged home.He did say that he had been in a lot of pain last night but feels better this morning. A: Damon is a 68 year old gentleman admitted to [facility] on 11/12/18 with bilateral pneumonia. P: Maurice remains acute level of care. He will likely return to [facility] when ready but he would prefer to remain at [facility] and return home from here. He realizes that that is probably not a realistic goal. Maurice may require transfer to a tertiary care facility if bronchoscopy is necessary. CM will continue to support patient, family and identified discharge needs.
--- NOTE | 2018-11-13 15:01 | CHAPLAIN ---
Maurice was lying in bed when I visited. He was pleasant in greeting me and shared some personal history about living in [place], moving to [place] for college and then to [place]. He said he will have family members visiting, but didn't elaborate. I will continue to visit him.
--- NOTE | 2018-11-13 15:14 | PT.INTREAT ---
Date of service: 11/13/18 Time of Service: 15:14 PT Notes Inpatient Physical Therapy Treatment Note [facility] Date: 11/13/18 PRECAUTIONS: Back pain, Fall SUBJECTIVE: Maurice is agreeable to participating in PT, although he states that he is anxious about sitting up and the possibility of standing. OBJECTIVE: PAIN: Patient c/o significant pain in mid-back area on L side BED MOBILITY/TRANSFERS Rolling L/R: Min A to L Supine-sit: Mod A Sit-supine: Mod A Sit-stand: Refused Static sitting at EOB x3 minutes with c/o significant back pain Patient re-positioned on L side in supine, for positional drainage, as requested by Respiratory Therapy, with sputum production. ASSESSMENT: Patient tolerated transfers and sitting at EOB with c/o significantly increased back pain. PLAN: Continue with PT's POC TREATMENT CODE/TIME: 20 minutes; [id number]
[2018-11-13] MEDS: Normal Saline Flush 10 ML SYR IVP (20:19)
[2018-11-14] VITALS (14 sets, daily range): BP systolic 102–143; BP diastolic 66–86; PULSE 64–88; RESP 4–20; TEMP 31–36.9; O2SAT 94–99
[2018-11-14] MEDS: oxyCODONE 5 MG TAB PO ×4 (00:20→22:12)
[2018-11-14] MEDS: Cyclobenzaprine 10 MG TAB PO ×4 (02:27→23:56)
[2018-11-14] MEDS: Acetaminophen 500 MG TAB 1000 MG PO ×2 (02:27→23:56)
[2018-11-14] MEDS: cefTAZidime 2,000 MG in Normal Saline 100 ML 200 MG IVPB ×3 (04:55→19:38)
[2018-11-14] MEDS: Tamsulosin 0.4 MG CAPCR 0.8 MG PO (06:08)
[2018-11-14] MEDS: methylPREDNISolone SUCC 125 MG VIAL 60 MG IVP ×2 (06:08→19:36)
[2018-11-14] MEDS: Albuterol/Ipratropium 3 ML UPD VIAL UPD ×4 (06:08→23:50)
[2018-11-14] MEDS: Bisacodyl 5 MG TABEC 10 MG PO (06:10)
[2018-11-14 07:04] LABS: Abs Immature Grans 0.02 k/cumm (0.0-0.09); Absolute Lymphocyte Count 0.67 k/cumm (1.2-3.4); Absolute Monocyte Count 0.44 k/cumm (0.11-0.7); Absolute Neutrophil Count 6.71 k/cumm (1.2-6.7); HCT 46.7 % (40.0-50.0); HGB 15.7 g/dL (13.5-17.5); Immature Grans % 0.3; Lymphocytes % 8.5; Mean Corp. HGB Concentration 33.6 g/dL (32.0-36.0); Mean Corpuscular Volume 86.3 fL (80-95); Mean Platelet Volume 9.7 fL (8.0-11.0); Monocytes % 5.6; Neutrophils % 85.6; Platelet Count 261 x1000/uL (130-400); RBC 5.41 m/cumm (4.50-6.00); RBC Distribution Width 14.3 % (11.8-14.1); White Blood Cell Count 7.84 k/cumm (4.4-10.8)
[2018-11-14 07:05] LABS: Anion Gap 8.5 mmol/L (3-11); BUN 13 mg/dL (7-18); CO2 27.5 mmol/L (21.0-32.0); CREATININE 0.52 mg/dL (0.70-1.30); Calcium 9.1 mg/dL (8.5-10.1); Chloride 105 mmol/L (98-107); Glucose 132 mg/dL (70-100); Sodium 141 mmol/L (136-145)
[2018-11-14] MEDS: oxyCODONE-CR 10 MG TABCR 30 MG PO ×2 (07:40→19:37)
[2018-11-14] MEDS: Ibuprofen 400 MG TAB PO ×2 (07:41→19:37)
[2018-11-14] MEDS: Finasteride 5 MG TAB PO (07:41)
[2018-11-14] MEDS: Heparin 5,000 UNITS/ML VIAL 5000 UNITS SC ×3 (07:42→23:50)
[2018-11-14] MEDS: guaiFENesin 600 MG TABCR PO ×2 (07:42→19:37)
[2018-11-14] MEDS: Docusate Sodium 100 MG CAP PO ×2 (07:42→19:37)
[2018-11-14] MEDS: Senna TAB 1 TAB PO ×2 (07:42→19:37)
[2018-11-14] MEDS: Normal Saline Flush 10 ML SYR IVP ×2 (07:49→19:37)
--- NOTE | 2018-11-14 10:07 | OT.INTREAT ---
Date of service: 11/14/18 Time of Service: 09:00 Occupational Therapy Notes Occupational Therapy Inpatient Treatment Note Date: 11/14/18 PRECAUTIONS: Fall, Standard SUBJECTIVE: Pt was sitting in bed when OT arrived. OBJECTIVE: PAIN:no c/o pain EATING: With min-mod vc provided throughout pt was able to perform eating with fair-good technique. He presented with decreased (B) hand use and decreased functional fine and gross motor control of his (B) UE. Pt was able to perform hand to mouth with modified technique and requires adaptive foam on his silverware in order to functional grasp and release his utensils. ASSESSMENT/PLAN: Pt was receptive to OT session today. He was able to demonstrate increased (I) in eating routine. He does require (A) at baseline for opening and closing containers. He utilizes an ulnar grasp on his fork when performing hand to mouth translation. He did have some difficulty with swallowing his food. This was more because he was trying to talk when eating. Pt was working with speech. He was able to cut his food with use of just fork, he is not able to utilize (B) hand use with eating techniques. OT will monitor pts progress. TREATMENT CODES/TIME: 66691, 15 minutes (09:00) Bryanna Dao OTR/[facility]
--- NOTE | 2018-11-14 10:25 | PGE_ITS ---
Date of Service Date of service: 11/14/18 Time of Service: 10:38 Assessment and Plan (1) Bilateral pneumonia: Current visit: Yes Status: Acute Having failed outpatient treatment. Aspiratio component very possible. On vancomycin/ceftazidime Day 3. S/p 2 days of azithromycin. Sputum c&S pending - if no MRSA, would d/c vancomycin. Continue steroids, nebs, humidified heated high flow, vibrapep, mucolytics, chest PT, IS. 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 Continue PT/OT. Patient is agreeable to palliative care - will consult. (3) Elevated TSH: Current visit: Yes Status: Acute FT4 wnl. Will not initiate therapy at this time - follow up as outpatient. (4) Sacral ulcer: Current visit: No Status: Chronic Present on admission. Wound care consulted. (5) Urinary retention: Current visit: No Status: Chronic s/p byrd - follow up as outpatient (6) Constipation: Current visit: No Status: Chronic Continue bowel regimen. Received dulcolax this am (7) DVT prophylaxis: Current visit: Yes Status: Acute Heparin SC, TEDs, SCD's (8) Discharge planning issues: Current visit: Yes Status: Acute Full code Palliative care consulted. Subjective Interval history since last seen: Damon (this is how he likes to be called) thinks he feels a lot better. His breathing is better. He is able to bring up secretions. States he does sometimes have difficulty swallowing and aspirated. I reviewed his [facility] - he had an aspiration event there. He states that his diet was advanced from pureed to regular solids with thin liquids [facility] because he is able to think through his swallowing if he takes his time. Denies dizziness, chest pain, shortness of breath, nausea. Complains of back pain. Requests his salonpas gel from [facility] to apply to his back. Exam Narrative Exam Narrative: General: very pleasant middle-aged male, sitting up in bed, in great spirits, A&Ox3, looks better HEENT: EOMI, MMM Heart: RRR, no m/r/g Lungs: Signifincat improvement to rhonchi/rales today. GI: abdomen is soft, nontender, nondistended Extremities: no e/c/c BLE's Objective Objective Clinical Data: Abnormal lab results 11/14/18 11/14/18 Range/Units 06:25 06:25 RDW 14.3 H (11.8-14.1) % Absolute Neutrophils 6.71 H (1.2-6.7) k/cumm Absolute Lymphocytes 0.67 L (1.2-3.4) k/cumm Creatinine 0.52 L (0.70-1.30) mg/dL Glucose 132 H (70-100) mg/dL Vital Signs Temperature 36.2 C L 11/14/18 07:20 Temperature Source Tympanic 11/14/18 07:20 Pulse 64 11/14/18 07:20 Pulse Rhythm Regular 11/14/18 08:53 Pulse 86 11/12/18 06:20 Respiratory Rate 16 11/14/18 09:46 Respiratory Effort 11/14/18 08:53 Respiratory Depth Normal 11/14/18 08:53 Respiratory Pattern Normal 11/14/18 08:53 Blood Pressure 143/86 H 11/14/18 07:20 Blood Pressure Mean 86 11/12/18 03:46 Pulse Oximetry 96 11/14/18 07:20 Oxygen Delivery Method Nasal Cannula 11/14/18 07:20 Oxygen Flow Rate 30 11/13/18 09:49 Fraction of Inspired Oxygen (FIO2) 36 11/13/18 09:49 Pain Level 3 11/14/18 09:46 Comment 11/14/18 04:00 Intake & Output 11/13/18 11/13/18 11/14/18 11:59 23:59 11:59 Intake Total 2422.5 / 4452.5 2030 / 4452.5 560 / 560 Output Total 1850 / 2850 1000 / 2850 1000 / 1000 Balance 572.5 / 1602.5 1030 / 1602.5 -440 / -440 Weight 59.7 kg 63.3 kg Intake: IV 1472.5 / 3162.5 1690 / 3162.5 360 / 360 Oral 950 / 1290 340 / 1290 200 / 200 Output: Urine 1850 / 2850 1000 / 2850 1000 / 1000 Other: Urine Color Yellow Yellow Yellow Urine Appearance Clear Clear Clear Comment Changed byrd bag 2/2 handle breaking Laboratory Results WBC 7.84 k/cumm (4.4-10.8) D 11/14/18 06:25 RBC 5.41 m/cumm (4.50-6.00) 11/14/18 06:25 Hgb 15.7 g/dL (13.5-17.5) D 11/14/18 06:25 Hct 46.7 % (40.0-50.0) 11/14/18 06:25 MCV 86.3 fL (80-95) 11/14/18 06:25 MCH 29.0 pg (27.0-33.0) 11/14/18 06:25 MCHC 33.6 g/dL (32.0-36.0) 11/14/18 06:25 RDW 14.3 % (11.8-14.1) H 11/14/18 06:25 Plt Count 261 x1000/uL (130-400) 11/14/18 06:25 MPV 9.7 fL (8.0-11.0) 11/14/18 06:25 Immature Gran % 0.3 11/14/18 06:25 85.6 11/14/18 06:25 8.5 11/14/18 06:25 5.6 11/14/18 06:25 0.0 11/14/18 06:25 0.0 11/14/18 06:25 Absolute Neutrophils 6.71 k/cumm (1.2-6.7) H 11/14/18 06:25 Absolute Lymphocytes 0.67 k/cumm (1.2-3.4) L 11/14/18 06:25 Absolute Monocytes 0.44 k/cumm (0.11-0.7) 11/14/18 06:25 Absolute Eosinophils 0.00 k/cumm (0.0-0.7) 11/14/18 06:25 Absolute Basophils 0.00 k/cumm (0.0-0.2) 11/14/18 06:25 Sodium 141 mmol/L (136-145) 11/14/18 06:25 Potassium 4.0 mmol/L (3.5-5.1) 11/14/18 06:25 Chloride 105 mmol/L (98-107) 11/14/18 06:25 Carbon Dioxide 27.5 mmol/L (21.0-32.0) 11/14/18 06:25 8.5 mmol/L (3-11) 11/14/18 06:25 BUN 13 mg/dL (7-18) 11/14/18 06:25 0.52 mg/dL (0.70-1.30) L 11/14/18 06:25 >= 60.00 (mL/min/1.73m2) 11/14/18 06:25 Glucose 132 mg/dL (70-100) H 11/14/18 06:25 Calcium 9.1 mg/dL (8.5-10.1) 11/14/18 06:25 Magnesium 2.0 mg/dL (1.8-2.4) 11/14/18 06:25 0.3 mg/dL (0.2-1.0) 11/13/18 06:35 AST 14 U/L (15-37) L 11/13/18 06:35 ALT 14 U/L (16-63) L 11/13/18 06:35 60 U/L (46-116) 11/13/18 06:35 < 0.05 ng/mL (0.00-0.06) 11/12/18 04:14 6.0 g/dL (6.4-8.2) L 11/13/18 06:35 2.5 g/dL (3.4-5.0) L 11/13/18 06:35 < 0.1 ng/mL 11/13/18 06:35 TSH 11.08 uIU/mL (0.36-3.74) H 11/12/18 04:15 Free T4 0.95 ng/dL (0.76-1.46) 11/12/18 04:15 Vancomycin Trough 13.1 ug/mL (10.0-20.0) 11/13/18 09:40
--- NOTE | 2018-11-14 13:31 | PDOC.CMPRO ---
- If Service Date Differs Date of service: 11/14/18 Time of Service: 13:31 Care Management Progress Note S/O: Damon agreed to a palliative consult with which should be between 1000 and 1030. Damon reports he is feeling better, RT reports he was able to cough up a lot of secretions. DEVELOPMENTAL THERAPIST Tarsha and Nurse Performance Solutions Specialist Jovanna came over to visit the patient today and received updates. Damon will plan to return to [facility] when medically ready for discharge. A: Damon is a 68 year old gentleman admitted to [facility] on 11/12/18 with bilateral pneumonia with a history of reoccurring Chordoma with new sites of disease and multiple episodes of debulking procedures. P: Maurice remains acute level of care. He will likely return to [facility] when ready. He will return to [facility] via w/c van vs ambulance.
[2018-11-14] MEDS: Pantoprazole 40 MG VIAL IVP (14:03)
--- NOTE | 2018-11-14 14:49 | WOUNDCARE ---
Wound Care Report Pt is a 68 year old male consulted for pressure injury on the sacrum. Chart reviewed, including H&P, recent labs, and vital signs, and other providers? reports. Medical Hx : BPH (benign prostatic hyperplasia) (Chronic) Chordoma of spine (Chronic) Chronic back pain (Acute) Constipation (Chronic) Disorder of meninges (Acute) Essential hypertension (Acute) Hyperlipidemia (Acute) Impotence (Acute) Right carotid artery occlusion (Chronic) Sacral ulcer (Chronic) Urinary retention (Chronic) Wound Hx if applicable Pt reports he?s had the wound for about 1 year. Unable to obtain medical records at this time to find documented onset of wound. He does report having surgical debridement in the past. Wound Assessment Findings Circular pressure injury, resolving stage 4. Measurements 1x 0.8 x1.5 Undermining noted @ 10-2 , wound is somewhat deep which makes it seem like it?s tunneling but I can?t probe any true tunnels, just wound depth. full thickness skin loss involving muscle. Wound bed unable to see fully, appears to be red non-granulating tissue, no slough noted. Wound Edges Cristel inward Surrounding tissue Red, intact, blanchable Exudate Scant Serous (dressing removed was only 1 day old) Odor none Indicators of infection present? delayed healing, absent granulation tissue. Patients Mobility status bed-bound, tried gel mattress @ [facility], refused after 2 hours per nursing staff. Nutritional Status- nutrition consult recommended Interventions for pressure redistribution Repositioning schedule for bed and chair Q2H Physician/nurse practitioner notification Recommendations: Continue current treatment plan being carried out by [facility] when Pt is a resident. Cleanse wound w/NS, gently fluff Aquacell into the wound, cover w/mepilex . Change every Mon, Wed, Fri AND PRN for dressing w/greater than 50% or greater strike through drainage. Thank you for the consult.
--- NOTE | 2018-11-14 16:14 | NUR.NOTE ---
notified nurse and pharmacy of vancomycin trough. Nursing Note:
--- NOTE | 2018-11-14 18:00 | PTTR_ITS ---
Date of service: 11/14/18 Time of Service: 10:32 PT Notes Inpatient Physical Therapy Treatment Note [facility] Date: 11/14/2018 PRECAUTIONS: Fall. Standard. Activity as tolerated. SUBJECTIVE: Patient agreeable to a PT/PT student treatment. Nurse came in at the early part of session to assess status of Stage 4 sacral wound. OBJECTIVE: Patient seen resting in bed upon arrival of PT and PT student. PAIN: 4/10 on low back and neck area BED MOBILITY/TRANSFERS Rolling L/R: minimal assist Supine-sit: moderate assist Sit-supine: moderate assist Sit-stand: maximum assist of 2. In the morning, patient required maximum assist of 2 and SBA of an INTERIOR DESIGN ASSISTANT for an attempt at stand-pivot transfer. In the afternoon, patient did not prove to be safe using the STEDY lift. Stand-sit: maximum assist of 2. In the morning, patient required maximum assist of 2 and SBA of an INTERIOR DESIGN ASSISTANT for an attempt at stand-pivot transfer. In the afternoon, patient did not prove to be safe using the STEDY lift. Bed-Chair: maximum assist of 2. Patient unable to bear weight on B LE due to pain level and high anxiety. Chair-bed: maximum assist of 2. Patient unable to bear weight on B LE due to pain level and high anxiety. GAIT Assistive Device: Hand-held assist Weight bearing: Patient unable to weight bear due to pain Assist: maximum assist of 2 Distance: N/A Deviation: N/A ASSESSMENT: Patient demonstrates extensive assist for all out-of bed activities due to persistent low back pain and impaired pulmonary function. PLAN: Goal to improve transfers and standing tolerance are discharged today with recommendation given to nursing about using mechanical noe for all transfer task performance to ensure safety of patient and caregivers. TREATMENT CODE/TIME: Session 1 x 30 minutes beginning at 10:32 AM. Session 2 x 25 minutes beginning at 12:38 PM.
--- NOTE | 2018-11-14 23:20 | NUR.NOTE ---
whole in 1999 Vancomycin. returned to Pharmacy. Used 0400 dose at 1999 and will use noon dose at 0400.
[2018-11-15] VITALS (12 sets, daily range): BP systolic 112–151; BP diastolic 70–96; PULSE 66–91; RESP 1–20; TEMP 35.8–36.7; O2SAT 92–98
[2018-11-15] MEDS: Normal Saline Flush 10 ML SYR IVP ×3 (03:29→21:18)
[2018-11-15] MEDS: cefTAZidime 2,000 MG in Normal Saline 100 ML 200 MG IVPB ×3 (05:07→21:19)
[2018-11-15] MEDS: Bisacodyl 5 MG TABEC 10 MG PO ×3 (06:01→16:44)
[2018-11-15] MEDS: Albuterol/Ipratropium 3 ML UPD VIAL UPD ×3 (06:01→19:44)
[2018-11-15] MEDS: Milk of Magnesia 30 ML CUP PO ×2 (06:01→16:44)
[2018-11-15] MEDS: Tamsulosin 0.4 MG CAPCR 0.8 MG PO (06:01)
[2018-11-15] MEDS: oxyCODONE 5 MG TAB PO ×2 (06:02→13:28)
[2018-11-15 06:39] LABS: Absolute Lymphocyte Count 0.58 k/cumm (1.2-3.4); Absolute Monocyte Count 0.42 k/cumm (0.11-0.7); Absolute Neutrophil Count 5.66 k/cumm (1.2-6.7); HCT 42.4 % (40.0-50.0); HGB 14.1 g/dL (13.5-17.5); Lymphocytes % 8.7; Mean Corp. HGB Concentration 33.3 g/dL (32.0-36.0); Mean Corpuscular Hemoglobin 28.8 pg (27.0-33.0); Mean Corpuscular Volume 86.7 fL (80-95); Mean Platelet Volume 9.1 fL (8.0-11.0); Monocytes % 6.3; Platelet Count 255 x1000/uL (130-400); RBC 4.89 m/cumm (4.50-6.00); RBC Distribution Width 14.3 % (11.8-14.1); White Blood Cell Count 6.66 k/cumm (4.4-10.8)
[2018-11-15 07:10] LABS: BUN 14 mg/dL (7-18); CO2 28.2 mmol/L (21.0-32.0); CREATININE 0.55 mg/dL (0.70-1.30); Calcium 8.6 mg/dL (8.5-10.1); Glucose 133 mg/dL (70-100)
[2018-11-15 07:14] LABS: Anion Gap 6.8 mmol/L (3-11); Chloride 103 mmol/L (98-107); Potassium 4.1 mmol/L (3.5-5.1); Sodium 138 mmol/L (136-145)
[2018-11-15] MEDS: guaiFENesin 600 MG TABCR PO ×2 (08:02→19:42)
[2018-11-15] MEDS: Cyclobenzaprine 10 MG TAB PO ×2 (08:02→16:44)
[2018-11-15] MEDS: Docusate Sodium 100 MG CAP PO ×2 (08:02→19:42)
[2018-11-15] MEDS: oxyCODONE-CR 10 MG TABCR 30 MG PO ×2 (08:02→19:43)
[2018-11-15] MEDS: Senna TAB 1 TAB PO ×2 (08:02→19:42)
[2018-11-15] MEDS: Finasteride 5 MG TAB PO (08:02)
[2018-11-15] MEDS: Ibuprofen 400 MG TAB PO ×2 (08:02→19:41)
[2018-11-15] MEDS: Heparin 5,000 UNITS/ML VIAL 5000 UNITS SC ×2 (08:03→16:44)
[2018-11-15] MEDS: methylPREDNISolone SUCC 125 MG VIAL 60 MG IVP (08:03)
--- NOTE | 2018-11-15 08:45 | CMPROGNOTE_ITS ---
- If Service Date Differs Date of service: 11/15/18 Time of Service: 08:45 Care Management Progress Note S/O: Damon was sitting up in bed when CM met with him. He was pleasant and smiling and readily engaged in conversation. Damon talked about the palliative care consult he had with Dr. Roberto this morning and stated that he felt it went really well. In the past he had a negative experience with the palliative care team at [facility]. Damon shared that he still has a lot of decisions to make and that this is just the beginning. He plans to discuss the consult with his daughter Maggie soon. Damon states he is feeling a lot better. When the subject of discharge was raised, Damon again said he wished he could just stay here at [facility], but in a humorous way. He did share that he is giving some thought to going home when he is a bit stronger and hiring care givers. A: Damon is a 68 year old gentleman admitted to [facility] on 11/12/18 with bilateral pneumonia. P: Maurice remains acute level of care. He will likely return to [facility] when ready. CM will continue to support patient, family and identified discharge needs.
--- NOTE | 2018-11-15 09:27 | NUR.NOTE ---
Pt struggling at times to swallow food and thin liquids effectively, being called into room emergently b/c pt cannot breath and is choking on food. Pt states colace pill came backup and coughs with thin liquids at times. Pt has had speech and swallow done when first here but still approx 50% of time is having difficulty with swallowing and concerned with aspiration. Notified charge lpn Nancy and RT Colt will be made aware.
--- NOTE | 2018-11-15 10:35 | OT.INTREAT ---
Date of service: 11/15/18 Time of Service: 10:10 Occupational Therapy Notes Occupational Therapy Inpatient Treatment Note Date: 11/15/18 PRECAUTIONS: Fall, Standard SUBJECTIVE: Pt was sitting in bed when OT arrived. He was agreeable to OT session and would like to perform his bathing routine today. OBJECTIVE: PAIN:c/o pain in back FUNCTIONAL MOBILITY Rolling L/R: (I) to limited 45* angle. BATHING: Sitting in bed with min vc throughout Upper Body: (I) washing face, (B) UE and abdomen Lower Body: Unable to assess at todays session . DRESSING: Sitting in bed Upper Extremity: Mod (A) [facility] Lower Extremity: Unable to assess ASSESSMENT: Pt was receptive to performing his bathing routine sitting in bed today. OT was unable to assess pts LE bathing and dressing as pt was getting ready for a palliative care consult from Dr. Roberto. He demonstrate fair movement of (B) UE with decreased recreation aide strength and fine motor control. OT will continue to progress pt towards goals established at initial evaluation. TREATMENT CODES/TIME: [id number], 15 minutes (08:15) MICHELLE Dick/[facility]
[2018-11-15] MEDS: Pantoprazole 40 MG VIAL IVP (12:57)
--- NOTE | 2018-11-15 16:06 | W.PM.PROGNOT ---
Date of Service Date of service: 11/15/18 Time of Service: 16:07 Assessment and Plan (1) Bilateral pneumonia: Current visit: Yes Status: Acute Having failed outpatient treatment. Aspiration component likely. On vancomycin/ceftazidime Day 4. D/c vancomycin. S/p 2 days of azithromycin. Continue steroid taper, nebs, humidified heated high flow, vibrapep, mucolytics, chest PT, IS. 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 Continue PT/OT. Increase breakthrough oxycodone. Had his palliative care consult today - Verbalized that he does not want to have any more surgeries, be transferred to a tertiary care facility. He would agree to a trach if needed and intubation, as long as we are aware that he has a difficult airway. Would not want to have a feeding tube. He would like for his bowels to be more regulated. (3) Elevated TSH: Current visit: Yes Status: Acute FT4 wnl. Will not initiate therapy at this time - follow up as outpatient. (4) Sacral ulcer: Current visit: No Status: Chronic Present on admission. Will follow wound care recommendations. (5) Urinary retention: Current visit: No Status: Chronic s/p byrd - follow up as outpatient (6) Constipation: Current visit: No Status: Chronic Continue bowel regimen - intensified today. (7) DVT prophylaxis: Current visit: Yes Status: Acute Heparin SC, TEDs, SCD's (8) Discharge planning issues: Current visit: Yes Status: Acute Full code - patient is a difficult airway. No transfers to tertiary care. Ok with trach if needed, but no PEG. Subjective Interval history since last seen: States his breathing is a lot better now than it was this morning and that he is doing much better overall. Denies dizziness, chest pain, nausea, vomiting. Exam Narrative Exam Narrative: General: very pleasant middle-aged male, sitting up in a chair, in great spirits, A&Ox3, looks even better than yesterday HEENT: EOMI, MMM Heart: RRR, no m/r/g Lungs: Lungs completely clear - and I hear breath sounds throughout GI: abdomen is soft, nontender, nondistended Extremities: no e/c/c BLE's Objective Objective Clinical Data: Abnormal lab results 11/14/18 11/15/18 11/15/18 Range/Units 15:25 06:20 06:20 RDW 14.3 H (11.8-14.1) % Absolute Lymphocytes 0.58 L (1.2-3.4) k/cumm Creatinine 0.55 L (0.70-1.30) mg/dL Glucose 133 H (70-100) mg/dL Vancomycin Trough 23.0 H* (10.0-20.0) ug/mL Vital Signs Temperature 36.0 C L 11/15/18 15:32 Temperature Source Skin 11/15/18 15:32 Pulse 91 H 11/15/18 15:32 Pulse Rhythm Regular 11/14/18 19:40 Pulse 86 11/12/18 06:20 Respiratory Rate 18 11/15/18 15:32 Respiratory Effort 11/14/18 19:40 Respiratory Depth Normal 11/14/18 19:40 Respiratory Pattern Normal 11/14/18 19:40 Blood Pressure 125/72 11/15/18 15:32 Blood Pressure Mean 86 11/12/18 03:46 Pulse Oximetry 94 L 11/15/18 15:32 Oxygen Delivery Method Room Air 11/15/18 15:32 Oxygen Flow Rate 0 11/15/18 15:32 Fraction of Inspired Oxygen (FIO2) 35 11/14/18 14:00 Pain Level 3 11/15/18 14:17 Comment 11/14/18 04:00 Intake & Output 11/14/18 11/15/18 11/15/18 23:59 11:59 23:59 Intake Total 1030 / 1710 1170 / 1270 100 / 1270 Output Total 350 / 1800 1100 / 1100 Balance 680 / -90 70 / 170 100 / 170 Weight 64.2 kg Intake: IV 670 / 1030 320 / 420 100 / 420 Oral 360 / 680 850 / 850 Output: Urine 350 / 1800 1100 / 1100 Other: Urine Color Light Kesha Yellow Urine Appearance Clear Clear Laboratory Results WBC 6.66 k/cumm (4.4-10.8) 11/15/18 06:20 RBC 4.89 m/cumm (4.50-6.00) 11/15/18 06:20 Hgb 14.1 g/dL (13.5-17.5) 11/15/18 06:20 Hct 42.4 % (40.0-50.0) 11/15/18 06:20 MCV 86.7 fL (80-95) 11/15/18 06:20 MCH 28.8 pg (27.0-33.0) 11/15/18 06:20 MCHC 33.3 g/dL (32.0-36.0) 11/15/18 06:20 RDW 14.3 % (11.8-14.1) H 11/15/18 06:20 Plt Count 255 x1000/uL (130-400) 11/15/18 06:20 MPV 9.1 fL (8.0-11.0) 11/15/18 06:20 Immature Gran % 0.0 11/15/18 06:20 85.0 11/15/18 06:20 8.7 11/15/18 06:20 6.3 11/15/18 06:20 0.0 11/15/18 06:20 0.0 11/15/18 06:20 Absolute Neutrophils 5.66 k/cumm (1.2-6.7) 11/15/18 06:20 Absolute Lymphocytes 0.58 k/cumm (1.2-3.4) L 11/15/18 06:20 Absolute Monocytes 0.42 k/cumm (0.11-0.7) 11/15/18 06:20 Absolute Eosinophils 0.00 k/cumm (0.0-0.7) 11/15/18 06:20 Absolute Basophils 0.00 k/cumm (0.0-0.2) 11/15/18 06:20 Sodium 138 mmol/L (136-145) 11/15/18 06:20 Potassium 4.1 mmol/L (3.5-5.1) 11/15/18 06:20 Chloride 103 mmol/L (98-107) 11/15/18 06:20 Carbon Dioxide 28.2 mmol/L (21.0-32.0) 11/15/18 06:20 6.8 mmol/L (3-11) 11/15/18 06:20 BUN 14 mg/dL (7-18) 11/15/18 06:20 0.55 mg/dL (0.70-1.30) L 11/15/18 06:20 >= 60.00 (mL/min/1.73m2) 11/15/18 06:20 Glucose 133 mg/dL (70-100) H 11/15/18 06:20 Calcium 8.6 mg/dL (8.5-10.1) 11/15/18 06:20 Magnesium 2.0 mg/dL (1.8-2.4) 11/15/18 06:20 0.3 mg/dL (0.2-1.0) 11/13/18 06:35 AST 14 U/L (15-37) L 11/13/18 06:35 ALT 14 U/L (16-63) L 11/13/18 06:35 60 U/L (46-116) 11/13/18 06:35 < 0.05 ng/mL (0.00-0.06) 11/12/18 04:14 6.0 g/dL (6.4-8.2) L 11/13/18 06:35 2.5 g/dL (3.4-5.0) L 11/13/18 06:35 < 0.1 ng/mL 11/13/18 06:35 TSH 11.08 uIU/mL (0.36-3.74) H 11/12/18 04:15 Free T4 0.95 ng/dL (0.76-1.46) 11/12/18 04:15 Vancomycin Trough 23.0 ug/mL (10.0-20.0) H* 11/14/18 15:25
--- NOTE | 2018-11-15 17:00 | PT.INTREAT ---
Date of service: 11/15/18 Time of Service: 11:10 PT Notes Inpatient Physical Therapy Treatment Note [facility] Date: 11/15/2018 PRECAUTIONS: Fall. Standard. Activity as tolerated. SUBJECTIVE: Patient agreeable to a PT/PT student treatment. Nurse came in at the early part of session to assess status of Stage 4 sacral wound. OBJECTIVE: Patient seen resting on recliner chair upon arrival of PT and PT student. PAIN: 3-4/10 on low back and neck area with movement BED MOBILITY/TRANSFERS Rolling L/R: minimal assist Supine-sit: moderate assist Sit-supine: moderate assist Sit-stand: Total dependence using mechanical lift Stand-sit: Total dependence using mechanical lift Bed-Chair: Total dependence using mechanical lift Chair-bed: Total dependence using mechanical lift THERAEX: Reviewed bed level exercises consisting of quadriceps setting, ankle bends, back of knee press downs held for 5 counts x 10 reps. ASSESSMENT: Patient continues to demonstrate extensive assist for all out-of bed activities due to persistent low back pain and impaired pulmonary function. PLAN: Visit frequency is decreased to 1 time as of today 11/15/2018. Continue with bed level exercises in order to improve mastery and compliance. TREATMENT CODE/TIME: 07781 x 35 minutes beginning at 11:10 AM
[2018-11-15] MEDS: methylPREDNISolone SUCC 40 MG VIAL IVP (19:44)
--- NOTE | 2018-11-15 20:09 | PCNE_ITS ---
Date of service: 11/15/18 Time of Service: 10:10 History of Present Illness Chief Complaint: Goals of care; recurrent chordoma; inabiity to walk Narrative: Damon De Guzman is a 68 yo man who has had recurrent chordomas since 1995. He had his first debulking surgery in 2002. He has had a total of 14 chordoma surgeries since then, 5 in the last 2 years. He had had a feeding tube in the past; he has had a tracheostomy. He is currently living at the [facility]. I spoke to the staff there and they estimate that he has been there for 70 days and his bill is fully covered until he hits 100 days. After that, he will have to pay out of pocket. He would like to be home by that time. This is very unrealistic, by all accounts. Today, he was a 3 person assist out of bed. He had to use a Nydia. He has not walked in several months. He is very weak. He has chronic dysphagia and aspiration pneumonia. We did go over his medical choices. He thinks that he will still recover to the point where he can return to his home in [place]. He thinks that Dr Nick Colin, his neurosurgeon, will continue to operate on him as long as he forms new chordomas. Consults Consult date: 11/15/18 Requesting physician: Mayra Mcintyre Assessment and Plan (1) Chronic pulmonary aspiration: Current visit: Yes Status: Acute lungs wnl today but on admission had some component of asp pneumonia; has had 3 bouts this summer thinks he can prevent this if he slows down while eating/drinking (2) Debility: Current visit: Yes Status: Acute per nursing and PT, required 3 people to transfer oob to chair earlier needs nydia no where near being able to go home when his 30 days of full coverage at Rehab are up discussed alternatives to going home directly that are less expensive than Rehab suggested he look into community care homes Surrogate Son in [facility] in [place] (3) Denial about severity of illness: Current visit: Yes Status: Acute Rehab staff were very clear that daughter Maggie has been trying for a while to have her father understand he cannot live at home alone any longer I did not meet with her. He thinks that he can have indefinite surgeries; I suspect that having had 5 surgeries in the last 2 years puts him at increasing risk each time for further debility and risks. (4) Goals of care, counseling/discussion: Current visit: Yes Status: Acute Specifically: Pain: would like his prn oxycodone to be 10 mg rather than 5 mg; continue with oxycontin as scheduled Feeding Tube; WOULD NOT want another one placed Transfer to [facility] or other tertiary care centers: Does NOT want to be transferred Intubation: WOULD LIKE TO be intubated. REQUIRES child-sized ET TUBE. VERY TOUGH INTUBATION, DIFFICULT AIRWAY by his report discussed getting child sized ET tubes by his bedside at Rehab Tracheostomy: Would ACCEPT trache again if necessary. Remains full code for now. Not able to see himself as weak as he is. Will take time to establish a relationship before we go there. Need to consult with daughter, Maggie, too. Review of Systems Constitutional Reports body ache(s), Reports fatigue, Reports frequent falls, Reports poor appetite, Reports weakness and Reports weight loss Eyes Reports dry eyes and Reports requires corrective lenses ENT Reports change in voice, Reports dysphagia, Reports dry mouth, Reports hearing loss, Reports hoarseness, Reports neck pain, Reports odynophagia and Reports disequilibrium Cardiovascular Reports rapid heart rate, Reports lightheadedness and Reports dyspnea on exertion Respiratory Reports dyspnea on exertion Gastrointestinal Reports dysphagia, Reports early satiety, Reports heartburn, Reports loose stools and Reports odynophagia Genitourinary Reports difficulty urinating Musculoskeletal Reports abnormal gait, Reports atrophy, Reports muscle weakness, Reports neck pain and Reports stiffness Integumentary/Breasts Reports dry skin Neurologic Reports abnormal gait, Reports behavioral changes, Reports confusion, Reports frequent falls, Reports memory loss, Reports paresthesias, Reports disequilibrium and Reports weakness Comments: very weak 3 person assist, with Nydia per rehab staff, not fully participating in PT.OT Psychiatric Reports abnormal sleep pattern, Reports behavioral changes, Reports confusion, Reports difficulty concentrating and Reports memory loss Comments: per Rehab staff and nursing/PT/Care management, Damon doesn't have a good understanding of his capabilities very unrealistic apparently his daughter, Maggie, believes he should stay permanently at the Rehab, as private pay, once his 100 days are up I did not speak to her directly; this is from Rehab staff Endocrine Reports cold intolerance and Reports fatigue Hematologic/Lymphatic Reports easy bruising [facility] Medical History (Updated 11/15/18 @ 21:54 by Natalie Roberto MD) BPH (benign prostatic hyperplasia) (Chronic) Chordoma of spine (Chronic) Chronic back pain (Acute) Chronic pulmonary aspiration (Acute) Constipation (Chronic) Debility (Acute) Denial about severity of illness (Acute) Disorder of meninges (Acute) Essential hypertension (Acute) Goals of care, counseling/discussion (Acute) Hyperlipidemia (Acute) Impotence (Acute) 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 Social History (Updated 11/15/18 @ 21:58 by Natalie Roberto MD) Smoking/Tobacco Use Status: Former Tobacco Use Tobacco: How many years used: 25 Second Hand Exposure: No Alcohol Intake: former Drug use: Never Substance use type: does not use Caregiver/Support person: No Household members: none Housing: long-term Number of Children: 1 number of grandchildren: 2 Communication Needs: Hard of Hearing and Corrective Lenses Education Level: high school Do you need help understanding health information?: Rarely current occupation: Retired Pets and animals: No Current gender identity: male What is your relationship status?: How often do you talk on the phone with friends or family?: once per week How often do you get together with friends or relatives?: once per week Panel score (0-1 are the most socially isolated patients): 0 What type of physical activity do you participate in: none, bed-bound and sedentary lifestyle Special gregorio needs: No Agree to transfusion: Yes Seatbelt use: always Do you feel safe at home: Yes Do you feel safe in your relationship?: Yes Additional Social history: [place] well[place] Daughter about 5 miles away. He is currently at [facility] and . Staff believe family planning on this being permanent placement. Damon thinks he will get better enough to go home. Contradictory views. He is EXTREMELY debilitated. Unsafe to go home alone. Exam Narrative Exam Narrative: General: pleasant frail elderly male, in bed, A&Ox3, talkative but voice weak HEENT: EOMI, MMM Heart: RRR, no m/r/g Lungs: Lungs clear though distant GI: abdomen is soft, nontender, nondistended Extremities: muscular atrophy psych: not depressed or anxious; very optimistic, not realistic per staff neuro: a and 0 x 3, moving all extremities, weak Results Last Vital Signs Temp 97.7 F 11/15/18 19:37 Pulse 77 11/15/18 19:37 Resp 17 11/15/18 19:37 BP 113/72 11/15/18 19:37 Pulse Ox 92 L 11/15/18 19:37 Labs : 11/15/18 06:20 11/15/18 06:20 Laboratory Results - last 24 hr 11/15/18 11/15/18 06:20 06:20 WBC 6.66 RBC 4.89 Hgb 14.1 Hct 42.4 MCV 86.7 MCH 28.8 MCHC 33.3 RDW 14.3 H Plt Count 255 MPV 9.1 Immature Gran % 0.0 Neutrophils % 85.0 Lymphocytes % 8.7 Monocytes % 6.3 Eosinophils % 0.0 Basophils % 0.0 Absolute Neutrophils 5.66 Absolute Lymphocytes 0.58 L Absolute Monocytes 0.42 Absolute Eosinophils 0.00 Absolute Basophils 0.00 Sodium 138 Potassium 4.1 Chloride 103 Carbon Dioxide 28.2 Anion Gap 6.8 BUN 14 Creatinine 0.55 L Estimated GFR/1.73 m2 >= 60.00 Glucose 133 H Calcium 8.6 Magnesium 2.0
[2018-11-16] VITALS (10 sets, daily range): BP systolic 102–131; BP diastolic 67–84; PULSE 68–95; RESP 1–24; TEMP 36.1–36.8; O2SAT 92–97
[2018-11-16] MEDS: Albuterol/Ipratropium 3 ML UPD VIAL UPD ×4 (01:38→17:37)
[2018-11-16] MEDS: Heparin 5,000 UNITS/ML VIAL 5000 UNITS SC ×3 (01:38→16:07)
[2018-11-16] MEDS: oxyCODONE 5 MG TAB 10 MG PO ×3 (01:44→23:01)
[2018-11-16] MEDS: cefTAZidime 2,000 MG in Normal Saline 100 ML 200 MG IVPB ×3 (03:53→20:37)
[2018-11-16] MEDS: Normal Saline Flush 10 ML SYR IVP ×3 (03:55→20:37)
[2018-11-16] MEDS: Tamsulosin 0.4 MG CAPCR 0.8 MG PO (06:03)
[2018-11-16 07:22] LABS: Abs Immature Grans 0.01 k/cumm (0.0-0.09); Absolute Eosinophil Count 0.01 k/cumm (0.0-0.7); Absolute Lymphocyte Count 0.92 k/cumm (1.2-3.4); Absolute Monocyte Count 0.58 k/cumm (0.11-0.7); Absolute Neutrophil Count 5.28 k/cumm (1.2-6.7); Eosinophils % 0.1; HCT 40.9 % (40.0-50.0); HGB 13.4 g/dL (13.5-17.5); Immature Grans % 0.1; Lymphocytes % 13.5; Mean Corp. HGB Concentration 32.8 g/dL (32.0-36.0); Mean Corpuscular Hemoglobin 28.8 pg (27.0-33.0); Mean Corpuscular Volume 87.8 fL (80-95); Mean Platelet Volume 9.3 fL (8.0-11.0); Monocytes % 8.5; Neutrophils % 77.8; Platelet Count 257 x1000/uL (130-400); RBC 4.66 m/cumm (4.50-6.00); RBC Distribution Width 14.5 % (11.8-14.1)
[2018-11-16 07:40] LABS: Anion Gap 5.5 mmol/L (3-11); BUN 13 mg/dL (7-18); CO2 29.5 mmol/L (21.0-32.0); CREATININE 0.47 mg/dL (0.70-1.30); Calcium 8.3 mg/dL (8.5-10.1); Chloride 103 mmol/L (98-107); Glucose 100 mg/dL (70-100); Magnesium 2.1 mg/dL (1.8-2.4); Potassium 3.8 mmol/L (3.5-5.1); Sodium 138 mmol/L (136-145)
[2018-11-16] MEDS: methylPREDNISolone SUCC 40 MG VIAL IVP (07:47)
[2018-11-16] MEDS: Ibuprofen 400 MG TAB PO ×2 (07:48→20:36)
[2018-11-16] MEDS: Finasteride 5 MG TAB PO (07:48)
[2018-11-16] MEDS: guaiFENesin 600 MG TABCR PO ×2 (07:48→20:33)
[2018-11-16] MEDS: Docusate Sodium 100 MG CAP PO ×2 (07:48→20:36)
[2018-11-16] MEDS: Senna TAB 1 TAB PO ×2 (07:49→20:33)
[2018-11-16] MEDS: oxyCODONE-CR 10 MG TABCR 30 MG PO ×2 (09:25→20:31)
--- NOTE | 2018-11-16 10:03 | OTTR_ITS ---
Date of service: 11/16/18 Time of Service: 09:45 Occupational Therapy Notes Occupational Therapy Inpatient Treatment Note Date: 11/16/18 PRECAUTIONS: Standard SUBJECTIVE: Pt was sitting in chair when OT arrived. He notes that he was transported to chair via noe lift. He notes that he is in pain with any functional mobility. OBJECTIVE: PAIN:no c/o pain unless with twisting and turning. BATHING: Sitting in chair with max (A) set up and increased min vc throughout Upper Body: (I) washing face, (B) UE, abdomen Lower Body: Mod (A) upper thighs, max (A) below knees and (B) feet. DRESSING: Sitting in chair Upper Extremity: Min (A) don and doffing hospital gown Lower Extremity: Max (A) (B) socks don and doffing which pt reports he has been unable to perform since before surgery. GROOMING: Sitting in chair with max (A) opening toothpaste container, (I) with brushing teeth with max (A) Set up ASSESSMENT/PLAN: Pt lacks functional fine motor control to perform any opening of containers. Pain and ROM limit him from LE bathing and dressing as pt reports he is max (A) at [facility]. Functionally pt is feeling better and willing to perform increased ADL/IADL routines. OT will monitor pts response to todays session. TREATMENT CODES/TIME: 89719, 20 minutes (09:45) [facility]
--- NOTE | 2018-11-16 14:44 | CHAPLAIN ---
Damon shared some personal history to telling me about his life in [place], then [place], then [place], former professions and avocations. He is hoping to stay here through Tuesday, and delay going back to [facility] as long as possible. He said he had a good conversation with Dr. Roberto yesterday and that she asked all the right questions. Damon told me that he can stay at [facility] for about 30 more days with his insurance covering the costs, then he would like to go home with paid caregivers around the clock. He said his home is large enough to give overnight caregivers a room of their own. Dr. Roberto's notes indicated this may not be realistic. I will continue to visit.
[2018-11-16] MEDS: Pantoprazole 40 MG VIAL IVP (14:45)
[2018-11-16] MEDS: Cyclobenzaprine 10 MG TAB PO (16:08)
[2018-11-16] MEDS: Bisacodyl 10 MG SUPP PR (16:16)
--- NOTE | 2018-11-16 16:39 | W.PM.PROGNOT ---
Date of Service Date of service: 11/16/18 Time of Service: 13:00 Assessment and Plan (1) Bilateral pneumonia: Current visit: Yes Status: Acute Having failed outpatient treatment. Aspiration component likely. On ceftazidime Day 5. S/p 3 days on vancomycin. S/p 2 days of azithromycin. Continue steroid taper (transition to PO), nebs, now on 2L of O2 by NC rather than humidified heated high flow, vibrapep, mucolytics, chest PT, IS. Qualifiers: Lung location: lower lobe of lung Pneumonia type: due to unspecified organism Qualified Code(s): J18.1 - Lobar pneumonia, unspecified organism (2) Chordoma of spine: Current visit: No Status: Chronic Recurrent, s/p surgery, essentially paraplegic. Continue PT/OT. Current pain management regimen is perfect, per patient. S/p palliative care - Verbalized that he does not want to have any more surgeries, be transferred to a tertiary care facility. He would agree to a trach if needed and intubation, as long as we are aware that he has a difficult airway. Would not want to have a feeding tube. He would like for his bowels to be more regulated. (3) Elevated TSH: Current visit: Yes Status: Acute FT4 wnl. Will not initiate therapy at this time - follow up as outpatient. (4) Sacral ulcer: Current visit: No Status: Chronic Present on admission. Will follow wound care recommendations. (5) Urinary retention: Current visit: No Status: Chronic s/p byrd - follow up as outpatient (6) Constipation: Current visit: No Status: Chronic Continue bowel regimen - intensified today. (7) DVT prophylaxis: Current visit: Yes Status: Acute Heparin SC, TEDs, SCD's (8) Discharge planning issues: Current visit: Yes Status: Acute Full code - patient is a difficult airway. No transfers to tertiary care. Ok with trach if needed, but no PEG. Planned for discharge tomorrow Subjective Interval history since last seen: Mr De Guzman states that he feels better today.Had a short episode of lower central chest/epigastric pain while being repositioned today, lasting less than 2 minutes. Denies dizziness, nausea, vomiting. Shortness of breath and cough are better. Denies nausea/vomiting. Exam Narrative Exam Narrative: General: very pleasant middle-aged male, sitting up in a chair, looks better, able to sit himself up in a chair, in great spirits, A&Ox3 HEENT: EOMI, MMM Heart: RRR, no m/r/g Lungs: rales at B bases, clear up with cough GI: abdomen is soft, nontender, nondistended Extremities: no e/c/c BLE's Objective Objective Clinical Data: Abnormal lab results 11/16/18 11/16/18 Range/Units 06:45 06:45 Hgb 13.4 L (13.5-17.5) g/dL RDW 14.5 H (11.8-14.1) % Absolute Lymphocytes 0.92 L (1.2-3.4) k/cumm Creatinine 0.47 L (0.70-1.30) mg/dL Calcium 8.3 L (8.5-10.1) mg/dL Vital Signs Temperature 36.1 C L 11/16/18 15:20 Temperature Source Tympanic 11/16/18 15:20 Pulse 80 11/16/18 15:20 Pulse Rhythm Regular 11/16/18 07:45 Pulse 86 11/12/18 06:20 Respiratory Rate 18 11/16/18 15:20 Respiratory Effort Non-Labored 11/16/18 07:45 Respiratory Depth Normal 11/16/18 07:45 Respiratory Pattern Normal 11/16/18 07:45 Blood Pressure 102/68 11/16/18 15:20 Blood Pressure Mean 86 11/12/18 03:46 Pulse Oximetry 93 L 11/16/18 15:20 Oxygen Delivery Method Nasal Cannula 11/16/18 15:20 Oxygen Flow Rate 2 11/16/18 15:20 Fraction of Inspired Oxygen (FIO2) 35 11/14/18 14:00 Pain Level 3 11/16/18 15:20 Comment 11/16/18 04:20 Intake & Output 11/15/18 11/16/18 11/16/18 23:59 11:59 23:59 Intake Total 370 / 1540 460 / 800 340 / 800 Output Total 1075 / 2175 1400 / 1800 400 / 1800 Balance -705 / -635 -940 / -1000 -60 / -1000 Weight 63.5 kg Intake: IV 130 / 450 220 / 320 100 / 320 Oral 240 / 1090 240 / 480 240 / 480 Output: Urine 1075 / 2175 1400 / 1800 400 / 1800 Other: Urine Color Yellow Yellow Pale Yellow Straw Urine Appearance Clear Clear Clear Laboratory Results WBC 6.80 k/cumm (4.4-10.8) 11/16/18 06:45 RBC 4.66 m/cumm (4.50-6.00) 11/16/18 06:45 Hgb 13.4 g/dL (13.5-17.5) L 11/16/18 06:45 Hct 40.9 % (40.0-50.0) 11/16/18 06:45 MCV 87.8 fL (80-95) 11/16/18 06:45 MCH 28.8 pg (27.0-33.0) 11/16/18 06:45 MCHC 32.8 g/dL (32.0-36.0) 11/16/18 06:45 RDW 14.5 % (11.8-14.1) H 11/16/18 06:45 Plt Count 257 x1000/uL (130-400) 11/16/18 06:45 MPV 9.3 fL (8.0-11.0) 11/16/18 06:45 Immature Gran % 0.1 11/16/18 06:45 77.8 11/16/18 06:45 13.5 11/16/18 06:45 8.5 11/16/18 06:45 0.1 11/16/18 06:45 0.0 11/16/18 06:45 Absolute Neutrophils 5.28 k/cumm (1.2-6.7) 11/16/18 06:45 Absolute Lymphocytes 0.92 k/cumm (1.2-3.4) L 11/16/18 06:45 Absolute Monocytes 0.58 k/cumm (0.11-0.7) 11/16/18 06:45 Absolute Eosinophils 0.01 k/cumm (0.0-0.7) 11/16/18 06:45 Absolute Basophils 0.00 k/cumm (0.0-0.2) 11/16/18 06:45 Sodium 138 mmol/L (136-145) 11/16/18 06:45 Potassium 3.8 mmol/L (3.5-5.1) 11/16/18 06:45 Chloride 103 mmol/L (98-107) 11/16/18 06:45 Carbon Dioxide 29.5 mmol/L (21.0-32.0) 11/16/18 06:45 5.5 mmol/L (3-11) 11/16/18 06:45 BUN 13 mg/dL (7-18) 11/16/18 06:45 0.47 mg/dL (0.70-1.30) L 11/16/18 06:45 >= 60.00 (mL/min/1.73m2) 11/16/18 06:45 Glucose 100 mg/dL (70-100) 11/16/18 06:45 Calcium 8.3 mg/dL (8.5-10.1) L 11/16/18 06:45 Magnesium 2.1 mg/dL (1.8-2.4) 11/16/18 06:45 0.3 mg/dL (0.2-1.0) 11/13/18 06:35 AST 14 U/L (15-37) L 11/13/18 06:35 ALT 14 U/L (16-63) L 11/13/18 06:35 60 U/L (46-116) 11/13/18 06:35 < 0.05 ng/mL (0.00-0.06) 11/12/18 04:14 6.0 g/dL (6.4-8.2) L 11/13/18 06:35 2.5 g/dL (3.4-5.0) L 11/13/18 06:35 < 0.1 ng/mL 11/13/18 06:35 TSH 11.08 uIU/mL (0.36-3.74) H 11/12/18 04:15 Free T4 0.95 ng/dL (0.76-1.46) 11/12/18 04:15 Vancomycin Trough 23.0 ug/mL (10.0-20.0) H* 11/14/18 15:25
--- NOTE | 2018-11-16 17:13 | PDOC.CMPRO ---
- If Service Date Differs Date of service: 11/16/18 Time of Service: 17:13 Care Management Progress Note S/O: Damon was sitting up in a chair when CM came to visit with him. He was pleasant, as always, and displayed his strong sense of humor. When the subject of his imminent discharge was raised, Damon again expressed a desire to remain a little longer at [facility]. He also had questions about his SNF Medicare benefit and wanted to know how many days he has left. CM obtained and shared this information with him. He has about a month of benefit days left and then alternative plans will need to be made. He has stated that he prefers not to spend down his private funds at a SNF and may look to arranging private care at home. It is anticipated that he will discharge back to [facility] tomorrow if he continues to improve. A: Damon is a 68 year old gentleman admitted to [facility] on 11/12/18 with bilateral pneumonia. P: Maurice remains acute level of care. He will likely return to [facility] when ready. CM will continue to support patient, family and identified discharge needs.
[2018-11-16] MEDS: predniSONE 20 MG TAB 40 MG PO (20:34)
[2018-11-16] MEDS: Methylnaltrexone 12 MG/0.6 ML VIAL SC (23:01)
[2018-11-16] MEDS: Magnesium Citrate 300 ML BTL 150 ML PO (23:50)
[2018-11-17] VITALS (7 sets, daily range): BP systolic 108–148; BP diastolic 70–90; PULSE 74–83; RESP 1–20; TEMP 35.8–36.6; O2SAT 92–98
[2018-11-17] MEDS: Albuterol/Ipratropium 3 ML UPD VIAL UPD ×3 (00:33→11:38)
[2018-11-17] MEDS: Heparin 5,000 UNITS/ML VIAL 5000 UNITS SC ×2 (00:33→08:23)
--- NOTE | 2018-11-17 02:30 | NUR.NOTE ---
Pts last BM was 11/10/18. Over the last two days attempts for bowel movement were made (see MAR) but were not successful. Pt reported abdominal discomfort. Pts abdomen was firm. Charge nurse, Michelle, contacted Dr Rosas. Dr Rosas advised manual disimpaction. On 11/16/18 at approx. 2300 pt was disimpacted. Pts HR was monitored via pulse oximetry during the procedure. HR remained stable between 70 and 85. A moderate amount of very hard stool was removed. Pt stated he was uncomfortable during procedure but denied pain. After impacted stool was removed, pt received rony care. Pts dressing on sacral wound was changed. Pt passed gas throughout procedure, hygiene, and dressing change. Pt reported decreased abdominal pressure post procedure. Abdomen less firm on palpation. Will CTM.
[2018-11-17] MEDS: Normal Saline Flush 10 ML SYR IVP (04:39)
[2018-11-17] MEDS: cefTAZidime 2,000 MG in Normal Saline 100 ML 200 MG IVPB ×2 (04:39→12:06)
[2018-11-17] MEDS: Tamsulosin 0.4 MG CAPCR 0.8 MG PO (06:02)
[2018-11-17] MEDS: oxyCODONE 5 MG TAB 10 MG PO ×2 (06:09→11:11)
[2018-11-17] MEDS: oxyCODONE-CR 10 MG TABCR 30 MG PO (08:23)
[2018-11-17] MEDS: guaiFENesin 600 MG TABCR PO (08:24)
[2018-11-17] MEDS: predniSONE 20 MG TAB 40 MG PO (08:24)
[2018-11-17] MEDS: Ibuprofen 400 MG TAB PO (08:24)
[2018-11-17] MEDS: Senna TAB 1 TAB PO (08:24)
[2018-11-17] MEDS: Finasteride 5 MG TAB PO (08:24)
[2018-11-17] MEDS: Docusate Sodium 100 MG CAP PO (08:24)
--- NOTE | 2018-11-17 10:51 | OT.INNT ---
Date of service: 11/17/18 Time of Service: 10:51 Occupational Therapy Notes 11/17/18 OT went in to see pt, pt was not available at this time as xray was arriving for pt. Bryanna Dao OTR/[facility]
--- NOTE | 2018-11-17 11:02 | DI.RAD_ITS ---
SYMPTOM/DIAGNOSIS: F/U PNA PORTABLE CHEST: The left diaphragm is again noted to be elevated. There are stable left basilar atelectasis. A left upper lobe nodule is again noted. There has been some interval clearing of the previously noted right lower lobe infiltrate. No new abnormalities are seen. IMPRESSION: Interval improvement in right lower lobe pneumonia.
--- NOTE | 2018-11-17 11:28 | DSE_ITS ---
Date of service: 11/17/18 Time of Service: 11:28 DS: Diagnosis Discharge Diagnosis (1) Bilateral pneumonia: Status: Acute (2) Chordoma of spine: Status: Chronic (3) Elevated TSH: Status: Acute (4) Sacral ulcer: Status: Chronic (5) Urinary retention: Status: Chronic (6) Constipation: Status: Chronic (7) Ambulatory dysfunction: Status: Acute (8) Chronic pulmonary aspiration: Status: Acute (9) Chronic back pain: Status: Acute (10) Essential hypertension: Status: Acute (11) BPH (benign prostatic hyperplasia): Status: Chronic Discharge Plan Disposition Patient Disposition: SNF (LEVEL 1) [facility] Condition: Improving Discharge Details Chief Complaint: SOB Clinical Impression: Bilateral pneumonia, Mucus plugging of bronchi, Hypoxemia Reason For Visit: BILATERAL PNEUMONIA WITH HYPOXEMIA Admit Date/Time: 11/12/18 05:58 Admit Provider: Mario Alexandra Attending Provider: Mario Alexandra Primary Care Provider: Jennifer Marc ED Provider: Win Gutierrez [facility] Course Hospital Course: Mr De Guzman is a 68 year old male with PMHx of recurrent cervical cordomas, s/p multiple resections, with secondary bilateral lower extremity weakness and ambulatory dysfunction, as well as h/o chronic pain, neurogenic bladder/urinary retention s/p byrd, hypertension, admitted to [facility] on 11/12/18 for bilateral pneumonia, likely due to aspiration, with prior failure of two different outpatient regimens at [facility]. He had evidence of significant mucous plugging and was hypoxic to 87%, requiring 4L to saturate in the 90's. He was initiated on humidified heated high flow oxygen, mucolytics, steroids, chest PT with incentive spirometry and vibrapep, as well as azithromycin, vancomycin, and cefepime. The patient steadily improved. We feel that postural drainage was likely the most helpful modality in all these treatments and should be continued on discharge as the patient still has some sputum production. We were able to minimize antibiotics to just cefepime with continued clinical improvement. His oxygen was transitioned to 2L of O2 by DE - it is very important to ensure he co ntinues to get humidification with it (the bubbler). We recommend aspiration precautions, PPI as he does have reflux, in order to prevent further aspiration events. He could benefit from 5 more days of levofloxacin and a short steroid taper as prescribed. Ensure that postural drainage is something that continues to be offered to the patient. His pain was a significant issue on this admission - his breakthrough oxycodone was increased to 10 mg. His bowel regimen also had to be significantly intensified. Despite this, he still needed to be disimpacted on 11/16/18. He needs to be on chronic stool softeners, senna, and miralax at a minimum. He has met with Dr Roberto in a palliative care consult. He remains full code, but strongly verbalized not wanting to be transferred to tertiary care facilities and not wanting any more surgeries. On the day of discharge, the patients lungs are nearly completely clear. His is saturating 98% on 2L - but we continue to want him to get humidification with the oxygen. He is medically stable for discharge. The care for patient and preparation of his discharge summary took 45 minutes on the day of discharge. Home Meds and New Rx's Prescriptions: New ipratropium-albuterol 0.5 mg-3 mg(2.5 mg base)/3 mL Solution For Nebulization 3 ml UPD Q6H Qty: 0 RF: 0 albuterol sulfate 2.5 mg /3 mL (0.083 %) Solution For Nebulization 2.5 mg UPD Q2H PRN PRNQty: 0 RF: 0 prednisone 20 mg Tablet See Rx Instructions .ROUTE .COMPLEX Qty: 0 RF: 0 magnesium hydroxide [Milk of Magnesia] 400 mg/5 mL Suspension 30 ml PO DAILY PRN PRNQty: 0 RF: 0 sodium chloride [Deep Sea Nasal] 0.65 % Aerosol,[place] 0 ml NS QID PRN PRNQty: 0 RF: 0 guaifenesin [Mucinex] 600 mg Tablet Extended Release 12hr 600 mg PO BID Qty: 0 RF: 0 pantoprazole [Protonix] 40 mg tablet,delayed release (DR/EC) 40 mg PO DAILY Qty: 30 RF: 0 Continued ibuprofen 400 mg Tablet 400 mg PO BID RF: 0 oxycodone [OxyContin] 30 mg Tablet,Oral Only,Ext.Rel.12 Hr 30 mg PO BID RF: 0 levofloxacin 750 mg tablet 750 mg PO DAILY Qty: 5 RF: 0 cyclobenzaprine 10 mg Tablet 10 mg PO TID PRNRF: 0 docusate sodium [Colace] 100 mg Capsule 100 mg PO BID RF: 0 docusate sodium 100 mg Capsule 100 mg PO BID PRNRF: 0 bisacodyl 5 mg Tablet,Delayed Release (Dr/Ec) 10 mg PO Q12H PRNRF: 0 acetaminophen 325 mg Capsule 650 mg PO Q4H PRN PRNRF: 0 magnesium citrate Solution PO PRN PRNRF: 0 finasteride 5 mg Tablet 5 mg PO DAILY AM RF: 0 diclofenac sodium 1 % Gel 4 g TOPICAL PRN PRNRF: 0 tamsulosin 0.4 mg Capsule 0.8 mg PO DAILY AM RF: 0 albuterol sulfate 1.25 mg/3 mL Solution For Nebulization 1.25 mg inhalation Q6H PRN PRNRF: 0 Changed sennosides [senna] 8.6 mg Tablet 8.6 mg PO BID Qty: 0 RF: 0 magnesium hydroxide [Milk of Magnesia] 400 mg/5 mL Suspension 30 ml PO DAILY PRN PRNQty: 0 RF: 0 polyethylene glycol 3350 [Miralax] 17 gram/dose Powder 17 g PO DAILY Qty: 0 RF: 0 oxycodone 5 mg Tablet 10 mg PO Q4H PRN PRNQty: 30 RF: 0 Discharge Instructions Instructions: Aspiration Pneumonia (DC) Additional Instructions: Finish antibiotics and steroids as prescribed. Postural drainage with PT and humified O2 are musts! Return to the hospital with any fever, bleeding, chest pain, or shortness of breath. Referrals: Jennifer Marc [Primary Care Provider] - Pardeep,Natalie Bower MD [ [facility] STAFF PHYSICIAN] - Activity:: Activity as Tolerated Equipment/Supplies:: No Equipment Needed Diet:: As Tolerated Discharge Orders Discharge Orders: Discharge Order (Routine); Ordered 11/17/18 Ordered By: Mayra Mcintyre Exam Narrative Exam Narrative: General: very pleasant middle-aged male, sitting up in a chair, looks upbeat, able to sit himself up in a chair, in great spirits, A&Ox3 HEENT: EOMI, MMM Heart: RRR, no m/r/g Lungs: very quiet rhonchi at B bases, clear with coughing GI: abdomen is soft, nontender, nondistended Extremities: no e/c/c BLE's DS: Data Vitals/I&O Vitals and I&O: Vital Signs Temperature 36.1 C L 11/17/18 07:40 Temperature Source Tympanic 11/17/18 07:40 Pulse 75 11/17/18 07:40 Pulse Rhythm Regular 11/17/18 06:28 Pulse 86 11/12/18 06:20 Respiratory Rate 20 11/17/18 07:40 Respiratory Effort Non-Labored 11/17/18 06:28 Respiratory Depth Normal 11/17/18 06:28 Respiratory Pattern Normal 11/17/18 06:28 Blood Pressure 114/70 11/17/18 07:40 Blood Pressure Mean 86 11/12/18 03:46 Pulse Oximetry 94 L 11/17/18 07:40 Oxygen Delivery Method Nasal Cannula 11/17/18 07:40 Oxygen Flow Rate 2 11/17/18 07:40 Fraction of Inspired Oxygen (FIO2) 35 11/14/18 14:00 Pain Level 4 11/17/18 11:11 Comment 11/16/18 04:20 Intake & Output 11/16/18 11/16/18 11/17/18 11:59 23:59 11:59 Intake Total 460 / 800 340 / 800 690 / 690 Output Total 1400 / 2450 1050 / 2450 750 / 750 Balance -940 / -1650 -710 / -1650 -60 / -60 Weight 63.5 kg 64.5 kg Intake: IV 220 / 320 100 / 320 210 / 210 Oral 240 / 480 240 / 480 480 / 480 Output: Urine 1400 / 2450 1050 / 2450 750 / 750 Other: Urine Color Yellow Pale Yellow Yellow Straw Urine Appearance Clear Clear Clear Stool Size Moderate Moderate Stool Characteristics Hard Hard Brown Completed studies during hospitalization [Text1]: CT chest 11/12/18: Increased bilateral lower lobe infiltrates, right greater than left. No evidence of pulmonary emboli. CXR 11/13/18: Bibasilar consolidation. Small right pleural effusion. CXR 11/17/18: Interval improvement in right lower lobe pneumonia. Labs on day of discharge: Preliminary micro results at discharge 11/12/18 14:25 Blood Culture - Preliminary Blood NO GROWTH 96 HOURS 11/12/18 14:30 Blood Culture - Preliminary Blood NO GROWTH 96 HOURS [facility] Medical History (Updated 11/17/18 @ 11:38 by Mayra Mcintyre MD) BPH (benign prostatic hyperplasia) (Chronic) Chordoma of spine (Chronic) Chronic back pain (Acute) Chronic pulmonary aspiration (Acute) Constipation (Chronic) Debility (Acute) Denial about severity of illness (Acute) Disorder of meninges (Acute) Essential hypertension (Acute) Goals of care, counseling/discussion (Acute) Hyperlipidemia (Acute) Impotence (Acute) 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 Social History (Updated 11/15/18 @ 21:58 by Natalie Roberto MD) Smoking/Tobacco Use Status: Former Tobacco Use Tobacco: How many years used: 25 Second Hand Exposure: No Alcohol Intake: former Drug use: Never Substance use type: does not use Caregiver/Support person: No Household members: none Housing: [facility] Number of Children: 1 number of grandchildren: 2 Communication Needs: Hard of Hearing and Corrective Lenses Education Level: high school Do you need help understanding health information?: Rarely current occupation: Retired Pets and animals: No Current gender identity: male What is your relationship status?: How often do you talk on the phone with friends or family?: once per week How often do you get together with friends or relatives?: once per week Panel score (0-1 are the most socially isolated patients): 0 What type of physical activity do you participate in: none, bed-bound and sedentary lifestyle Special gregorio needs: No Agree to transfusion: Yes Seatbelt use: always Do you feel safe at home: Yes Do you feel safe in your relationship?: Yes Additional Social history: [place] well[place] Daughter about 5 miles away. He is currently at [facility] Staff believe family planning on this being permanent placement. Damon thinks he will get better enough to go home. Contradictory views. He is EXTREMELY debilitated. Unsafe to go home alone.
--- NOTE | 2018-11-17 13:50 | PDOC.CMDIS ---
- If Service Date Differs Date of service: 11/17/18 Time of Service: 13:50 LACE Index Scoring Tool - Questions: Length of Stay (in days): 4 - 6 Acuity (Admit via E.D.?): Yes Comorbidities: Any Tumor E.D. Visits: 3 - Answers: Total Score: 12 Risk of Readmission: High Risk Care Management Discharge Reason for Hospitalization: Bilateral Pneumonia Discharge Plan: Damon will be discharged back to [facility] this afternoon. He will continue with rehabilitation and follow the plan of care established. He will transport via wheelchair van from the facility. Patient/Family Education Needs: Discharge plan, limitations, Ask Me Three. Services Needed at Discharge: Custodial Facility
--- NOTE | 2018-11-17 16:37 | PT.INTREAT ---
Date of service: 11/16/18 Time of Service: 11:45 PT Notes Inpatient Physical Therapy Treatment Note [facility] Date: 11/15/2018 PRECAUTIONS: Fall. Standard. Activity as tolerated. SUBJECTIVE: Patient agreeable to a PT/PT student treatment. OBJECTIVE: Patient seen resting on recliner chair upon arrival of PT and PT student. PAIN: 5/10 on low back and neck area with movement BED MOBILITY/TRANSFERS Rolling L/R: minimal assist Supine-sit: moderate assist Sit-supine: moderate assist Sit-stand: Total dependence using mechanical lift Stand-sit: Total dependence using mechanical lift Bed-Chair: Total dependence using mechanical lift Chair-bed: Total dependence using mechanical lift THERAEX: Reviewed bed level exercises consisting of quadriceps setting, ankle bends, back of knee press downs held for 5 counts x 10 reps. Patient demonstrates 75% mastery of exercises at this time. He has been provided with written instructions. In sitting, patient required assistance with [id number] exercises due to discmofrt felt to low back area while reclined on chair ASSESSMENT: Patient continues to demonstrate extensive assist for all out-of bed activities due to persistent low back pain and impaired pulmonary function. PLAN: Patient to transfer back to SNF as a LTC resident. Continue with bed level exercises in order to improve mastery and compliance. TREATMENT CODE/TIME: 88728 x 15 minutes beginning at 11:45 AM.
--- NOTE | 2018-11-17 16:51 | INDS_ITS ---
Date of service: 11/17/18 Time of Service: 16:51 PT Notes Physical Therapy Inpatient Discharge Summary Date: 11/17/2018 Referring Doctor: Mayra Mcintyre MD PT Orders: PT CONSULT: Limited ability Precautions: Fall. Standard. Patient Profile/Admitting Diagnosis: Patient is an 68-year-old male patient with past medical history significant for chordoma of spine S/P spinal surgery who presented to the ED on 11/12/2018 with chief complaints of respiratory distress and right upper back pain. Patient is diagnosed with pneumonia and hypothyroidism. PMHX: Medical History BPH (benign prostatic hyperplasia) (Chronic) Chordoma of spine (Chronic) Chronic back pain (Acute) Constipation (Chronic) Disorder of meninges (Acute) Essential hypertension (Acute) Hyperlipidemia (Acute) Impotence (Acute) Right carotid artery occlusion (Chronic) Sacral ulcer (Chronic) Urinary retention (Chronic) Surgical History S/P spinal surgery (Acute) Social History/Home Situation: Patient is a [facility] since September 2018 and has required assistance with the use of wheelchair for all mobility ADL performance. Per nurse, patient has not walked since for over a month now due to persistent back pain. Current Functional Limitations: Dependent transfer. Non-ambulatory. Equipment Owned/DME: Patient is a [facility] resident and has had a wheelchair for mobility performance. All transfers done via mechanical lift. Subjective:NT Objective: General Observation: NT Mental Status: NT Pain: NT ROM: Right Upper Extremity: Shoulder Flexion WFL. Shoulder abduction WFL. Elbow flexion WFL. Wrist flexion WFL. Functional opening and closing of hand WFL. Left Upper Extremity: Shoulder Flexion WFL. Shoulder abduction WFL. Elbow flexion WFL. Wrist flexion WFL. Functional opening and closing of hand WFL. Right Lower Extremity: Hip flexion 0-30. Knee flexion 0-20. Knee extension -30. Ankle dorsiflexion WFL. Ankle plantarflexion WFL. Left Lower Extremity: Hip flexion 0-20. Knee flexion 0-10. Knee extension -40. Ankle dorsiflexion WFL. Ankle plantarflexion WFL. Strength: Right Upper Extremity: Shoulder flexors 3/5. Shoulder abductors 3/5. Elbow flexors 3+/5. Elbow extensors 3+/5. Product Management Consultant strong. Left Upper Extremity: Shoulder flexors 3/5. Shoulder abductors 3/5. Elbow flexors 3+/5. Elbow extensors 3+/5. Product Management Consultant strong. Right Lower Extremity: Hip flexors 3-/5. Hip abductors 3-/5. Knee flexors 3-/5. Knee extensors 3-/5. Ankle dorsiflexors 3/5. Ankle plantarflexors 3/5. Left Lower Extremity:Hip flexors 3-/5. Hip abductors 3-/5. Knee flexors 3-/5. Knee extensors 3-/5. Ankle dorsiflexors 3/5. Ankle plantarflexors 3/5. Bed Mobility/Transfers: Rolling moderate assist Supine to sit moderate assist with HOB at 40 degrees Sit to supine moderate assist with HOB at 40 degrees Sit to stand Total dependence with mechanical lift Stand to sit Total dependence with mechanical lift Bed to chair Total dependence with mechanical lift Chair to bed Total dependence with mechanical lift Gait: Unabale to assess. N/A. Balance: Static Sitting: Fair Dynamic Sitting: Fair Static Standing: N/A Dynamic Standing: N/A Assessment: Patient has reportedly not ambulated for over a month due to persistent back pain and anxiety level. Patient's level of motivation also limits goal setting at this time. Patient continues to present with clinical signs and symptoms consistent with current/admitting diagnoses that have resulted to mobility limitations, gait instability, generalized weakness, and impairment of motor control as demonstrated by the following impairment level findings: 1. Decreased strength to B LE major muscle groups 2. Impaired sitting balance 3. Inability to tolerate standing 4. Impaired activity tolerance 5. Pain limiting ability to move Impairments are contributing to the following functional limitations: 1. Dependent bed mobility skills 2. Increased dependence with transfers 3. Inability to safely ambulate without assistive device and physical assista nce 4. Increase completion time for mobility ADL performance 5. Increased fall risk Goals: Goals X1 week 1. Supine-Sit independent NOT MET 2. Sit-Supine independent NOT MET 3. Sit-Stand minimal assist NOT MET 4. Stand-Sit minimal assist NOT MET 5. Bed-Chair minimal assist NOT MET 6. Chair-Bed minimal assist NOT MET 7. Fair static and dynamic standing balance/tolerance NOT MET DISCHARGE RECOMMENDATIONS: Patient will benefit from senior living facility placement in order to progress mobility level, strength, and balance to maximize mobility performance and reduce fall risk. No equipment needs at this time. TREATMENT CODE/TIME: NC. Thank you very much for this referral. Anne Loya PT, DPT, CLT [facility]
== END 2018-11-17 13:15 | disposition skilled nursing facility (03) | DRG 177 ==
LOC: ER 06:17 → MS 06:55
PROVIDERS: Admitting Provider Family Medicine; Emergency Provider Emergency Medicine; PCP Family Medicine; Visit Provider Internal Medicine
DX: J69.0 Pneumonitis due to inhalation of food and vomit (principal); L89.154 Pressure ulcer of sacral region, stage 4; T17.590A Other foreign object in bronchus causing asphyxiation, initial encounter; C41.2 Malignant neoplasm of vertebral column; F44.4 Conversion disorder with motor symptom or deficit; E03.9 Hypothyroidism, unspecified; G89.29 Other chronic pain; K59.03 Drug induced constipation; R53.1 Weakness; R13.12 Dysphagia, oropharyngeal phase; K11.7 Disturbances of salivary secretion; K21.9 Gastro-esophageal reflux disease without esophagitis; I10 Essential (primary) hypertension; N31.9 Neuromuscular dysfunction of bladder, unspecified; R33.8 Other retention of urine; R26.2 Difficulty in walking, not elsewhere classified; R94.6 Abnormal results of thyroid function studies; Z51.5 Encounter for palliative care; R53.81 Other malaise
CPT/HCPCS: 36415; 71275; 80048; 80053; 84145; 85027; 87040; 87081; 92610; 93005; 94640; 96361; 96365; 97162; 97167; 97530; 97535; 99223; 99232; 99239; 99255; 99285; NC; 71045; 80202; 83735; 84439; 84443; 84484; 85025; 87070; 87205; 93010; 94667; J0456; J0713; J1644; J2930; J3370; J7512; J7613; J7620

== ENCOUNTER 2018-11-29 22:28 | Inpatient (IN) | payer MEDICARE, BC, SELFPAY ==
[2018-11-29] VITALS (12 sets, daily range): BP systolic 94–179; BP diastolic 78–122; PULSE 108–172; RESP 18–29; TEMP 37; O2SAT 83–92
--- NOTE | 2018-11-29 22:46 | ED.GENADUL_ITS ---
Discharge Plan Disposition Patient Disposition: [facility] INPATIENT Condition: Poor Discharge Details Chief Complaint: SOB Clinical Impression: Hypoxemia, Mucus plugging of bronchi Primary Care Provider: Jennifer Marc ED Provider: Win Gutierrez [place] Meds and New Rx's Prescriptions: No Action ibuprofen 400 mg Tablet 400 mg PO BID RF: 0 oxycodone [OxyContin] 30 mg Tablet,Oral Only,Ext.Rel.12 Hr 30 mg PO BID RF: 0 ipratropium-albuterol 0.5 mg-3 mg(2.5 mg base)/3 mL Solution For Nebulization 3 ml UPD Q6H Qty: 0 RF: 0 albuterol sulfate 2.5 mg /3 mL (0.083 %) Solution For Nebulization 2.5 mg UPD Q2H PRN PRNQty: 0 RF: 0 prednisone 20 mg Tablet See Rx Instructions .ROUTE .COMPLEX Qty: 0 RF: 0 magnesium hydroxide [Milk of Magnesia] 400 mg/5 mL Suspension 30 ml PO DAILY PRN PRNQty: 0 RF: 0 sodium chloride [Deep Sea Nasal] 0.65 % Aerosol,Monson 0 ml NS QID PRN PRNQty: 0 RF: 0 guaifenesin [Mucinex] 600 mg Tablet Extended Release 12hr 600 mg PO BID Qty: 0 RF: 0 sennosides [senna] 8.6 mg Tablet 8.6 mg PO BID Qty: 0 RF: 0 magnesium hydroxide [Milk of Magnesia] 400 mg/5 mL Suspension 30 ml PO DAILY PRN PRNQty: 0 RF: 0 polyethylene glycol 3350 [Miralax] 17 gram/dose Powder 17 g PO DAILY Qty: 0 RF: 0 levofloxacin 750 mg tablet 750 mg PO DAILY Qty: 5 RF: 0 oxycodone 5 mg Tablet 10 mg PO Q4H PRN PRNQty: 30 RF: 0 pantoprazole [Protonix] 40 mg tablet,delayed release (DR/EC) 40 mg PO DAILY Qty: 30 RF: 0 cyclobenzaprine 10 mg Tablet 10 mg PO TID PRNRF: 0 docusate sodium [Colace] 100 mg Capsule 100 mg PO BID RF: 0 docusate sodium 100 mg Capsule 100 mg PO BID PRNRF: 0 bisacodyl 5 mg Tablet,Delayed Release (Dr/Ec) 10 mg PO Q12H PRNRF: 0 acetaminophen 325 mg Capsule 650 mg PO Q4H PRN PRNRF: 0 magnesium citrate Solution PO PRN PRNRF: 0 finasteride 5 mg Tablet 5 mg PO DAILY AM RF: 0 diclofenac sodium 1 % Gel 4 g TOPICAL PRN PRNRF: 0 tamsulosin 0.4 mg Capsule 0.8 mg PO DAILY AM RF: 0 albuterol sulfate 1.25 mg/3 mL Solution For Nebulization 1.25 mg inhalation Q6H PRN PRNRF: 0 Medical Decision Making Patient presenting with hypoxia and difficulty breathing with decreased right- sided chest wall movement as well as diminished breath sounds. I know from previous admission that he has issues with mucus plugging. Suspect that is what is going on now. Doubt pneumothorax. IV established and laboratory studies obtained. Portable chest x-ray ordered. Respiratory called and to help manage pulmonary issues. His EKG looks fine. He is tachypneic but not in distress. On respiratory arrival patient is minimally arousable but still breathing. He had received OxyContin and oxycodone prior to transfer over from [facility]. He was given 0.2 mg of Narcan which woke him up and he began talking with us again. Complaining of his back pain. He was placed on high flow nasal cannula. His portable chest x-ray shows no obvious infiltrate. There is no pneumothorax. His labs from [place] and his chest x-ray from [place] today were okay. He was discharged after 7 hours in the ED there. Patient's laboratory studies here show a white count of 11.8. Hemoglobin is normal. Chemistries significant for a bicarb of 33. Troponin is negative. Eventually an ABG on high flow nasal cannula at 70% was obtained. His pH is normal at 7.35 but his PCO2 is elevated to 61. He is compensated with a bicarb of 33. PO2 is low at 66 on 70%. Saturations are currently in the low 90s. He seems to be doing better. I do suspect this is all related to mucous plugging once again. Respiratory states that after being on high flow nasal cannula and some pulmonary toilet he eventually cleared on his last admission. Case discussed with hospitalist. Because of his CO2 retention and his low PO2 and patient's desire to be a full code he would like to place him in the ICU tonight. Medical Records Medical records reviewed: Yes I reviewed the patient's medical records. Lab Data Lab results reviewed: Yes I reviewed the patient's lab results. ECG Data Attestation: I personally reviewed and interpreted this ECG (s) as follows: Prior ECG tracings: available for review Interpretation: Sinus tachycardia at 108. Normal intervals. Left axis. Normal ST segments. HPI General Mode of arrival: EMS . Date/Time Provider Initiated Documentation: 11/29/18 22:46 . Limitations to Documentation: no limitations . Information obtained by: patient, EMS and old records reviewed . HPI Narrative: Patient presents from [facility] with complaint of shortness of breath and back pain. I have seen this patient previously. His back pain is not a new complaint. 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 Has shortness of breath and ineffective cough. He was seen at [facility] earlier today. We have obtained those records for review. Patient reports that he was feeling better when he left there. He has become more short of breath again tonight. Saturations were low. He was sent here. I admitted him last month for pneumonia and mucous plugging. He is not complaining of chest pain or abdominal pain. No report of fever. Related Data Home Medications Medication Instructions Recorded Confirmed acetaminophen 650 mg PO Q4H PRN PRN 09/20/18 11/29/18 bisacodyl 10 mg PO Q12H PRN 09/20/18 11/29/18 cyclobenzaprine 10 mg PO TID PRN 09/20/18 11/29/18 diclofenac sodium 4 g TOPICAL PRN PRN 09/20/18 11/29/18 docusate sodium 100 mg PO BID PRN 09/20/18 11/29/18 docusate sodium [Colace] 100 mg PO BID 09/20/18 11/29/18 finasteride 5 mg PO DAILY AM 09/20/18 11/29/18 magnesium citrate PO PRN PRN 09/20/18 albuterol sulfate 1.25 mg INHALATION Q6H PRN PRN 10/28/18 11/29/18 tamsulosin 0.8 mg PO DAILY AM 10/28/18 11/29/18 ibuprofen 400 mg PO BID 11/12/18 11/29/18 oxycodone [OxyContin] 30 mg PO BID 11/13/18 11/29/18 albuterol sulfate 2.5 mg UPD Q2H PRN PRN #0 ml 11/17/18 11/29/18 guaifenesin [Mucinex] 600 mg PO BID #0 tab 11/17/18 11/29/18 ipratropium-albuterol 3 ml UPD Q6H #0 ml 11/17/18 11/29/18 levofloxacin 750 mg PO DAILY #5 tab 11/17/18 11/29/18 magnesium hydroxide [Milk of 30 ml PO DAILY PRN PRN #0 ml 11/17/18 11/29/18 Magnesia] magnesium hydroxide [Milk of 30 ml PO DAILY PRN PRN #0 ml 11/17/18 11/29/18 Magnesia] oxycodone 10 mg PO Q4H PRN PRN #30 tab 11/17/18 11/29/18 pantoprazole [Protonix] 40 mg PO DAILY #30 tab 11/17/18 11/29/18 polyethylene glycol 3350 [Miralax] 17 g PO DAILY #0 g 11/17/18 11/29/18 prednisone See Rx Instructions .ROUTE 11/17/18 11/29/18 .COMPLEX #0 tab sennosides [senna] 8.6 mg PO BID #0 tab 11/17/18 11/29/18 sodium chloride [Deep Sea Nasal] 0 ml NS QID PRN PRN #0 ml 11/17/18 11/29/18 Previous Rx's Medication Instructions Recorded albuterol sulfate 2.5 mg UPD Q2H PRN PRN #0 ml 11/17/18 guaifenesin [Mucinex] 600 mg PO BID #0 tab 11/17/18 ipratropium-albuterol 3 ml UPD Q6H #0 ml 11/17/18 levofloxacin 750 mg PO DAILY #5 tab 11/17/18 magnesium hydroxide [Milk of 30 ml PO DAILY PRN PRN #0 ml 11/17/18 Magnesia] magnesium hydroxide [Milk of 30 ml PO DAILY PRN PRN #0 ml 11/17/18 Magnesia] oxycodone 10 mg PO Q4H PRN PRN #30 tab 11/17/18 pantoprazole [Protonix] 40 mg PO DAILY #30 tab 11/17/18 polyethylene glycol 3350 [Miralax] 17 g PO DAILY #0 g 11/17/18 prednisone See Rx Instructions .ROUTE 11/17/18 .COMPLEX #0 tab sennosides [senna] 8.6 mg PO BID #0 tab 11/17/18 sodium chloride [Deep Sea Nasal] 0 ml NS QID PRN PRN #0 ml 11/17/18 Allergies Allergy/AdvReac Type Severity Reaction Status Date / Time adhesive Allergy Unverified 11/29/18 22:45 General Stated Complaint: SOB CONRAD: 3 Review of Systems Review of Systems 01/01 Review of Systems completed and is negative except as stated above in HPI (Systems reviewed: Const, Eyes, ENT, Resp, CV, GI, , MSK, Skin, Neuro) [facility] [place] Medical History BPH (benign prostatic hyperplasia) (Chronic) Chordoma of spine (Chronic) Chronic back pain (Acute) Chronic pulmonary aspiration (Acute) Constipation (Chronic) Debility (Acute) Denial about severity of illness (Acute) Disorder of meninges (Acute) Essential hypertension (Acute) Goals of care, counseling/discussion (Acute) Hyperlipidemia (Acute) Impotence (Acute) 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 Social History Smoking/Tobacco Use Status: Former Tobacco Use Tobacco: How many years used: 25 Second Hand Exposure: No Alcohol Intake: former Drug use: Never Substance use type: does not use Caregiver/Support person: No Household members: none Housing: [facility] Number of Children: 1 number of grandchildren: 2 Communication Needs: Hard of Hearing and Corrective Lenses Education Level: high school Do you need help understanding health information?: Rarely current occupation: Retired Pets and animals: No Current gender identity: male What is your relationship status?: How often do you talk on the phone with friends or family?: once per week How often do you get together with friends or relatives?: once per week Panel score (0-1 are the most socially isolated patients): 0 What type of physical activity do you participate in: none, bed-bound and sedentary lifestyle Special gregorio needs: No Agree to transfusion: Yes Seatbelt use: always Do you feel safe at home: Yes Do you feel safe in your relationship?: Yes Additional Social history: [place] well, [place] Daughter about 5 miles away. He is currently at [facility] and . Staff believe family planning on this being permanent placement. Damon thinks he will get better enough to go home. Contradictory views. He is EXTREMELY debilitated. Unsafe to go home alone. Exam Narrative Exam Narrative: Vitals: He is afebrile. Heart rate, respiratory rate, blood pressure all elevated. O2 saturations in the 80s on nonrebreather. Const: Cachectic male with tachypnea but no acute distress. HEENT: NC/AT. Eyes: Normal conjunctiva and sclera. Neck: Supple. Trachea midline. Lungs: Tachypneic. Decreased chest rise on right. Upper airway noise and rhonchi throughout. Some diminished breath sounds on the right compared to left. Cor: RRR without murmur/gallop. Good radial pulses. GI: Soft. NT/ND. No guarding or rebound. Neuro: He is awake and alert. Difficult to understand because of soft speech and coughing. BLE weakness chronic. Ext: No C/C/E. No calf tenderness. Skin: Warm and dry without rash. Course Vital Signs Temperature 98.6 F 11/29/18 22:32 Pulse 115 H 11/29/18 22:32 Pulse Oximetry 84 L 11/29/18 22:32 Temperature 98.6 F 11/29/18 22:32 Temperature Source Temporal Artery Scan 11/29/18 22:32 Pulse 115 H 11/29/18 22:32 Respiratory Rate 27 H 11/29/18 22:40 Respiratory Effort 11/29/18 22:40 Respiratory Depth Shallow 11/29/18 22:40 Respiratory Pattern Irregular 11/29/18 22:40 Pulse Oximetry 84 L 11/29/18 22:32 Oxygen Delivery Method Room Air 11/29/18 22:32 Oxygen Flow Rate 0 11/29/18 22:32 Pain Level 4 11/29/18 22:32
[2018-11-29 22:58] LABS: Abs Immature Grans 0.01 k/cumm (0.0-0.09); Absolute Basophil Count 0.02 k/cumm (0.0-0.2); Absolute Lymphocyte Count 0.65 k/cumm (1.2-3.4); Absolute Monocyte Count 1.22 k/cumm (0.11-0.7); Absolute Neutrophil Count 9.72 k/cumm (1.2-6.7); Basophils % 0.2; Eosinophils % 1.7; HCT 42.1 % (40.0-50.0); HGB 13.8 g/dL (13.5-17.5); Immature Grans % 0.1; Lymphocytes % 5.5; Mean Corp. HGB Concentration 32.8 g/dL (32.0-36.0); Mean Corpuscular Hemoglobin 29.4 pg (27.0-33.0); Mean Corpuscular Volume 89.8 fL (80-95); Mean Platelet Volume 8.9 fL (8.0-11.0); Monocytes % 10.3; Neutrophils % 82.2; Platelet Count 166 x1000/uL (130-400); RBC 4.69 m/cumm (4.50-6.00); RBC Distribution Width 14.9 % (11.8-14.1); White Blood Cell Count 11.82 k/cumm (4.4-10.8)
[2018-11-29 23:14] LABS: Anion Gap 3.1 mmol/L (3-11); BUN 15 mg/dL (7-18); CO2 32.9 mmol/L (21.0-32.0); CREATININE 0.39 mg/dL (0.70-1.30); Calcium 8.4 mg/dL (8.5-10.1); Chloride 99 mmol/L (98-107); Glucose 163 mg/dL (70-100); Potassium 4.3 mmol/L (3.5-5.1); Sodium 135 mmol/L (136-145)
[2018-11-29 23:16] LABS: Troponin I < 0.05 ng/mL (0.00-0.06)
[2018-11-29] MEDS: Naloxone 0.4 MG/ML VIAL (23:16)
--- NOTE | 2018-11-29 23:23 | DI.RAD_ITS ---
SYMPTOM/DIAGNOSIS: SOB PORTABLE AP CHEST: 11/29 Note is again made of elevation diaphragm on the left. There appear to be areas of bibasilar atelectasis. Underlying infiltrate not excluded. Additional evaluation with PA and lateral chest suggested.
--- NOTE | 2018-11-29 23:36 | DI.VRAD_ITS ---
EXAM: XR Chest, 1 View EXAM DATE/TIME: 11/29/2018 11:21 PM CLINICAL HISTORY: 68 years old, male; Shortness of breath; Prior surgery; Surgery date: 6+ months; Surgery type: Spine TECHNIQUE: Imaging protocol: XR of the chest Views: 1 view. COMPARISON: CR XR PORTABLE CHEST AP 11/17/2018 10:47 AM FINDINGS: Lungs: Small amount of airspace disease in the lung bases. Pleural space: Unremarkable. No evidence of pneumothorax. Heart/Mediastinum: Unremarkable. Heart size within normal limits for technique. Upper abdomen: Gas-filled stomach and/or bowel. Bones/joints: Unremarkable. IMPRESSION: Small amount of basilar airspace disease. Most likely this is atelectasis but small infiltrates not excluded. Dictated and Authenticated by: Brennon Arguelles MD. Ordering:CHARO Walden MD
--- NOTE | 2018-11-29 23:59 | NUR.NOTE ---
Nursing Note: pt has a lidocaine patch that we just put on pt, does not want the patch he wants his med from [facility] so he called them and they brought the med over, tried to tell him it worked the same, he is refusing to let rt do the blood gas until he gets what he wants, gave pt the med and told him he could put it on himself
[2018-11-30] VITALS (204 sets, daily range): BP systolic 56–179; BP diastolic 36–115; PULSE 68–122; RESP 4–33; TEMP 30–37.3; O2SAT 84–100
[2018-11-30 00:22] LABS: BE 7.8 mmol/L (-3-3); HCO3 33 mmol/L (22-28); pH 7.35 (7.35-7.45); pO2 66 mmHg (83-108); sO2 93 % (94-98); tCO2 31 mmol/L (22-29)
[2018-11-30 00:23] LABS: Site Left Radial; pCO2 61 mmHg (34-47)
[2018-11-30 00:24] LABS: FIO2 70 %
--- NOTE | 2018-11-30 01:52 | HPE_ITS ---
Date of service: 11/30/18 Time of Service: 01:52 Assessment and Plan (1) Acute and chronic respiratory failure ([id number]): Status: Acute NIPPV for now however, he ought to be intubated by anesthesia or pulmonary as soon as feasible for protection of his airway and treatment of his hypercapneic respiratory failure. He also will need bronchoscopy for diagnostic as well as therapeutic lavage for mucous plugs as well as to rule out any endobr onchial lesions. Continue humdified oxygen, keep NPO and continue w/ Zosyn for aspiration pneumonia and give iv corticosteroids. Consider transfer to tertiary center. Case discussed w/ day hospitalist. Qualifiers: Respiratory failure complication: hypoxia and hypercapnia Qualified Code(s): J96.21 - Acute and chronic respiratory failure with hypoxia; J96.22 - Acute and chronic respiratory failure with hypercapnia (2) Aspiration pneumonia: Status: Acute initiation of Zosyn along w/ supportive care w/ NIPPV; however, he ought to be reintubated by anesthesia or pulmonary given his difficult airway Qualifiers: Aspiration pneumonia type: unspecified Laterality: bilateral Lung location: lower lobe of lung Qualified Code(s): J69.0 - Pneumonitis due to inhalation of food and vomit (3) Chronic pulmonary aspiration: Status: Acute keep NPO and treatment as outlined above. Qualifiers: Encounter type: subsequent encounter Qualified Code(s): T17.908D - Unspecified foreign body in respiratory tract, part unspecified causing other injury, subsequent encounter (4) Chordoma of spine: Status: Chronic He is s/p multiple cervical surgeries/fusions and this makes intubation very difficult. His narcotics are being held for now. History of Present Illness Chief Complaint: dyspnea Narrative: 68 yr old male resident of [facility] who was sent to the ER d/t acute dyspnea. The patient has known COPD and is disabled and bedridden and on chronic narcotics d/t cervical cordoma and multiple spinal surgeries. Upon arrival to the ER he was noted to be tachypneic, and hypoxemic w/ marked decreased breath sounds over right chest along w/ poor right chest wall movement w/ respirations. he was given narcan 0.2 mg IV to reverse his sedation from his oxycontin he had been given earlier this evening. Initially he became more arouseable and began to talk to the ER staff and c/o of his chronic back pain. His hypoxemia corrected w/ high flow nasal cannula oxygen. The patient had been evaluated earlier in the day at [facility] for similar complaints. He had been sent there on diversion from [facility] ER d/t lack of CT scanner use ealier today. However, no CT of his chest was performed but CXR and labs were done and he was discharged back to [facility] after iv fluids and aerosolized bronchodilators. Initial workup in our ER this evening demonstrated a mild leukocytosis of 11,800, no significant anemia. Normal troponin. but elevated HCO3 of 33 on his CMP. ABG demonstrated hypoxemia and hypercarbia (pO2 66, pCO2 61 w/ incomplete compensated pH of 7.35) this was on 70% oxygen. CXR demonstrated bibasilar airspace disease suggestive of bibasilar atelectasis but infiltrates could not be excluded. It was felt that he was experiencing mucous plugging and COPD exacerbation. He was to be admitted to medical floor for aggressive pulmonary toiletry and humidified oxygen and iv corticosteroids, however, he deteriorated. When I arrived to evaluate him in the ER he was obtunded and unarouseable by sternal rub. His repeat ABG showed worsening hypercarbia w/ pCO2 >100 and pO2 101 and pH 6.97. At that point it was decided since he is a full code, he should be intubated. See Dr. Gutierrez's note regarding intubations in the ER. The patient initially was intubated w/ direct laryngoscopy twice (each time successfully but when ET was adjusted due to high position, the airway was lost and he had to be ambu-bag valve masked. The third attempt required glide scope to visualize the vocal cords and intubate the patient. This was successful however, when the ET tube was attempted to be advanced due to high location of the ET, there was much resistance and he became difficult to ventilate at which time he was extubated and the ET was found to be kinked. He was then placed on BIPAP and admitted to the ICU. He is now being treated for acute on chronic respiratory failure and possible aspiration pneumonia and possible endobronchial lesion versus mucous plugging. He has hx of prior mucous plugging and was recently hospitalized from 11/12- 11/17/2018 for bilateral pneumonia. He was treated w/ humidified oxygen, mucolytics and azithromycin, vancomcin and cefepime. He was felt to be chronically aspirating. He was felt to have benefitted from pulmonary toiletry and humidification of his oxygen and he was discharged on 5 more days of Levaquin and tapered dose of prednisone. On the day of discharge his CXR showed interval improvement in his RLL pneumonia. However, his CT scans of his chest dating back to 10/28/2018 suggested possible right lower lobe lung carcinoma w/ multiple intrapulmonary metastatic lesions, however, repeat CTA scan of chest from 11/12/2018 done to rule out PE showed bilateral lower lobe infiltrates R>L and no PE. [facility] Medical History BPH (benign prostatic hyperplasia) (Chronic) Chordoma of spine (Chronic) Chronic back pain (Acute) Chronic pulmonary aspiration (Acute) Constipation (Chronic) Debility (Acute) Denial about severity of illness (Acute) Disorder of meninges (Acute) Essential hypertension (Acute) Goals of care, counseling/discussion (Acute) Hyperlipidemia (Acute) Impotence (Acute) 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 Social History Smoking/Tobacco Use Status: Former Tobacco Use Tobacco: How many years used: 25 Second Hand Exposure: No Alcohol Intake: former Drug use: Never Substance use type: does not use Caregiver/Support person: No Household members: none Housing: fpc Number of Children: 1 number of grandchildren: 2 Communication Needs: Hard of Hearing and Corrective Lenses Education Level: high school Do you need help understanding health information?: Rarely current occupation: Retired Pets and animals: No Current gender identity: male What is your relationship status?: How often do you talk on the phone with friends or family?: once per week How often do you get together with friends or relatives?: once per week Panel score (0-1 are the most socially isolated patients): 0 What type of physical activity do you participate in: none, bed-bound and sedentary lifestyle Special gregorio needs: No Agree to transfusion: Yes Seatbelt use: always Do you feel safe at home: Yes Do you feel safe in your relationship?: Yes Additional Social history: [place] well[place] Daughter about 5 miles away. He is currently at [facility] and . Staff believe family planning on this being permanent placement. Damon thinks he will get better enough to go home. Contradictory views. He is EXTREMELY debilitated. Unsafe to go home alone. Meds Home Medications Medication Instructions Recorded Confirmed Type acetaminophen 650 mg PO Q4H PRN PRN 09/20/18 11/29/18 History bisacodyl 10 mg PO Q12H PRN 09/20/18 11/29/18 History cyclobenzaprine 10 mg PO TID PRN 09/20/18 11/29/18 History diclofenac sodium 4 g TOPICAL PRN PRN 09/20/18 11/29/18 History docusate sodium 100 mg PO BID PRN 09/20/18 11/29/18 History docusate sodium [Colace] 100 mg PO BID 09/20/18 11/29/18 History finasteride 5 mg PO DAILY AM 09/20/18 11/29/18 History magnesium citrate PO PRN PRN 09/20/18 History albuterol sulfate 1.25 mg INHALATION Q6H PRN PRN 10/28/18 11/29/18 History tamsulosin 0.8 mg PO DAILY AM 10/28/18 11/29/18 History ibuprofen 400 mg PO BID 11/12/18 11/29/18 History oxycodone [OxyContin] 30 mg PO BID 11/13/18 11/29/18 History albuterol sulfate 2.5 mg UPD Q2H PRN PRN #0 ml 11/17/18 11/29/18 Rx guaifenesin [Mucinex] 600 mg PO BID #0 tab 11/17/18 11/29/18 Rx ipratropium-albuterol 3 ml UPD Q6H #0 ml 11/17/18 11/29/18 Rx levofloxacin 750 mg PO DAILY #5 tab 11/17/18 11/29/18 Rx magnesium hydroxide [Milk of 30 ml PO DAILY PRN PRN #0 ml 11/17/18 11/29/18 Rx Magnesia] magnesium hydroxide [Milk of 30 ml PO DAILY PRN PRN #0 ml 11/17/18 11/29/18 Rx Magnesia] oxycodone 10 mg PO Q4H PRN PRN #30 tab 11/17/18 11/29/18 Rx pantoprazole [Protonix] 40 mg PO DAILY #30 tab 11/17/18 11/29/18 Rx polyethylene glycol 3350 [Miralax] 17 g PO DAILY #0 g 11/17/18 11/29/18 Rx prednisone See Rx Instructions .ROUTE 11/17/18 11/29/18 Rx .COMPLEX #0 tab sennosides [senna] 8.6 mg PO BID #0 tab 11/17/18 11/29/18 Rx sodium chloride [Deep Sea Nasal] 0 ml NS QID PRN PRN #0 ml 11/17/18 11/29/18 Rx Allergies Allergy/AdvReac Type Severity Reaction Status Date / Time adhesive Allergy Unverified 11/29/18 22:45 Exam Const General: frail appearing, ill appearing chronically and patient mechanically ventilated Nutritional Appearance: underweight Orientation: obtunded Limitations: altered mental status [facility] Head: normal to inspection, no palpable skull fracture, normocephalic and at raumatic General nose exam: external nose normal and nares normal Face and sinus: normal facial exam Mouth: oral mucosae normal, lip normal, tongue normal, oropharynx normal and moist mucous membranes Teeth and gingiva: edentulous Throat: posterior oropharynx normal Resp Effort & Inspection: abnormal respiratory pattern apneic pattern, labored and paradoxical thoraco-abdominal movements Auscultation: diminished lung sounds on the right in the lower lung quigley, rhonchi left upper, right upper and left lower and wheezes scattered wheezes Cardio Jugular venous pressure: no JVD Palpation: normal PMI Rate: regular rate Rhythm: regular rhythm Pulses: posterior tibial pulses present bilaterally diminished and dorsalis pedis pulses present bilaterally diminished GI Inspection: distended Palpation: firm, no guarding and nontender Percussion: normal to percussion Auscultation: hypoactive bowel sounds Back/Spine/Pelvis Cervical Spine: loss of normal cervical lordosis, scars present and cervical ROM abnormal Skin General skin exam: no rashes or lesions noted, elasticity normal and turgor normal Neuro General: obtunded (but arouseable after hyperventilating on ambu-bag valve mask) Cranial Nerves: PERRL, EOM intact bilaterally, no nystagmus and tongue midline Cognition: abnormal cognition Motor: other (moves both upper extremities and attempts to pull at ET tube w/ his hands) Pupils: Pinpoint: bilateral Extrem General: no clubbing, cyanosis or edema Results Labs : 11/29/18 22:50 11/29/18 22:50 Laboratory Results - last 24 hr 11/29/18 11/29/18 11/30/18 22:50 22:50 00:10 WBC 11.82 H RBC 4.69 Hgb 13.8 Hct 42.1 MCV 89.8 MCH 29.4 MCHC 32.8 RDW 14.9 H Plt Count 166 D MPV 8.9 Immature Gran % 0.1 Neutrophils % 82.2 Lymphocytes % 5.5 Monocytes % 10.3 Eosinophils % 1.7 Basophils % 0.2 Absolute Neutrophils 9.72 H Absolute Lymphocytes 0.65 L Absolute Monocytes 1.22 H Absolute Eosinophils 0.20 Absolute Basophils 0.02 Sample Site Left radial pCO2 61 H* pO2 66 L O2 Saturation 93 L ABG pH 7.35 ABG HCO3 33 H ABG Total CO2 31 H ABG Base Excess 7.8 H FiO2 70 Sodium 135 L Potassium 4.3 Chloride 99 Carbon Dioxide 32.9 H Anion Gap 3.1 BUN 15 Creatinine 0.39 L Estimated GFR/1.73 m2 >= 60.00 Glucose 163 H Calcium 8.4 L Troponin I < 0.05 Last Vital Signs Temp 37.0 C 11/29/18 23:00 Pulse 122 H 11/30/18 00:06 Resp 18 11/30/18 00:06 BP 179/110 H 11/30/18 00:06 Pulse Ox 92 L 11/30/18 00:06
[2018-11-30] MEDS: Naloxone 0.4 MG/ML VIAL IVP (02:12)
[2018-11-30 02:21] LABS: pO2 101 mmHg (83-108); sO2 94 % (94-98)
[2018-11-30 02:29] LABS: Site Right Radial
[2018-11-30 02:37] LABS: pH 6.97 (7.35-7.45)
[2018-11-30] MEDS: Midazolam 2 MG/2 ML VIAL IVP (03:15)
[2018-11-30] MEDS: PROPOFOL 1,000 MG/100 ML BTL 1.9 MG (03:20)
--- NOTE | 2018-11-30 04:01 | DI.RAD_ITS ---
SYMPTOM/DIAGNOSIS: RE-EVALUATE TUBE PLACEMENT AFTER ADJUSTMENT. SUPINE AP CHEST: 11/30 Note is again made of E-T tube in superior position 11 cm above the dallin. The lungs are grossly well expanded, again suspect bibasilar atelectasis.
[2018-11-30] MEDS: Normal Saline 1,000 ML 1000 ML IV (04:03)
--- NOTE | 2018-11-30 04:40 | DI.RAD_ITS ---
SYMPTOM/DIAGNOSIS: INTUBATION PORTABLE SUPINE CHEST: 11/30 There is an endotracheal tube which lies at the level of the thoracic apex and which should be advanced. Elevation of the diaphragm again noted on the left with bibasilar predominantly linear radiodensities suggesting atelectasis. Appropriate follow up studies requested. CONCLUSION: Inappropriately high E-T tube insertion level.
--- NOTE | 2018-11-30 05:13 | DI.VRAD_ITS ---
EXAM: XR Chest, 1 View EXAM DATE/TIME: 11/30/2018 3:38 AM CLINICAL HISTORY: 68 years old, male; Device placement; Ett placement (vent status); Prior surgery; Additional info: S/P ng tube and ett tube TECHNIQUE: Imaging protocol: XR of the chest Views: 1 view. COMPARISON: CR XR PORTABLE CHEST AP 11/29/2018 11:20 PM FINDINGS: Tubes, catheters and devices: Endotracheal tube tip is high in position in the thoracic inlet 11 cm above the level of the dallin. Nasogastric tube tip in the stomach. Lungs: There is some left base airspace disease which obscures the hemidiaphragm. Pleural space: Left costophrenic angle is blunted. Heart/Mediastinum: Unremarkable. Heart size within normal limits for technique. Bones/joints: Unremarkable. IMPRESSION: Endotracheal tube high in position. Nonspecific left base opacity. Possibly a combination of airspace disease and pleural fluid. Dictated and Authenticated by: Brennon Arguelles MD. Ordering:[facility] Elvira Rasmussen MD
[2018-11-30 08:16] LABS: Abs Immature Grans 0.03 k/cumm (0.0-0.09); Absolute Basophil Count 0.01 k/cumm (0.0-0.2); Absolute Eosinophil Count 0.01 k/cumm (0.0-0.7); Absolute Lymphocyte Count 0.27 k/cumm (1.2-3.4); Absolute Monocyte Count 1.15 k/cumm (0.11-0.7); Basophils % 0.1; Eosinophils % 0.1; HCT 39.1 % (40.0-50.0); HGB 12.4 g/dL (13.5-17.5); Immature Grans % 0.3; Lymphocytes % 2.5; Mean Corp. HGB Concentration 31.7 g/dL (32.0-36.0); Mean Corpuscular Hemoglobin 28.8 pg (27.0-33.0); Mean Corpuscular Volume 90.7 fL (80-95); Mean Platelet Volume 9.3 fL (8.0-11.0); Monocytes % 10.5; Neutrophils % 86.5; Platelet Count 138 x1000/uL (130-400); RBC 4.31 m/cumm (4.50-6.00); RBC Distribution Width 14.3 % (11.8-14.1); White Blood Cell Count 10.97 k/cumm (4.4-10.8)
[2018-11-30 08:21] LABS: Absolute Neutrophil Count 9.49 k/cumm (1.2-6.7)
[2018-11-30 08:24] LABS: Anion Gap 3.2 mmol/L (3-11); BUN 17 mg/dL (7-18); CO2 29.8 mmol/L (21.0-32.0); CREATININE 0.35 mg/dL (0.70-1.30); Chloride 103 mmol/L (98-107); Glucose 112 mg/dL (70-100); Potassium 4.6 mmol/L (3.5-5.1); Sodium 136 mmol/L (136-145)
[2018-11-30 08:25] LABS: Troponin I 0.07 ng/mL (0.00-0.06)
--- NOTE | 2018-11-30 08:39 | DI.RAD_ITS ---
SYMPTOM/DIAGNOSIS: RESPIRATORY FAILURE, R/O ASPIRATION PNEUMONIA SUPINE AP CHEST: 11/30 0850 HOURS Heart is not enlarged. Increased radiodensities again noted over the lung bases. N-G tube in position overlying the stomach.
[2018-11-30 08:42] LABS: FIO2 50 %; Site Right Radial
[2018-11-30 08:43] LABS: pH 7.29 (7.35-7.45)
[2018-11-30 08:46] LABS: pCO2 67 mmHg (34-47)
[2018-11-30 08:47] LABS: BE 5.6 mmol/L (-3-3); HCO3 32 mmol/L (22-28); pO2 77 mmHg (83-108); sO2 96 % (94-98); tCO2 30 mmol/L (22-29)
--- NOTE | 2018-11-30 09:49 | INITIAL_ITS ---
- If Service Date Differs Date of service: 11/30/18 Time of Service: 09:49 Care Management Initial Assess REASON FOR HOSPITALIZATION:: Acute respiratory failure PAST MEDICAL HISTORY/PAST SURGICAL HISTORY:: Medical History: BPH (benign prostatic hyperplasia) (Chronic). Chordoma of spine (Chronic). Chronic back pain (Acute). Chronic pulmonary aspiration (Acute). Constipation (Chronic). Debility (Acute). Denial about severity of illness (Acute). Disorder of meninges (Acute). Essential hypertension (Acute). Goals of care, counseling/discussion (Acute). Hyperlipidemia (Acute). Impotence (Acute). Right carotid artery occlusion (Chronic). Sacral ulcer (Chronic). Unable to stand up (Acute). Urinary retention (Chronic). Surgical History: S/P spinal surgery (Acute). multiple surgeries due to chordoma PREVIOUS FUNCTIONAL STATUS/SOCIAL/FAMILY SUPPORTS:: Maurice lives alone in a single family home in [place], [place] It has 3 levels but he lives only on one. Maurice has 2 daughters. Both of them live locally with their families and Maurice gets to see his grandchildren on a regular basis. Maurice has been retired for about 15 years. 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 His detention was triggered by the need to have surgery for a chordoma in his neck. Prior to his most recent illness and surgeries, Maurice was independent with all care. Most recently, Damon has been at [facility] following surgery at [facility] in early summer. CURRENT FUNCTIONAL STATUS:: Damon was admitted last night in acute respiratory failure. This morning Damon was lying in bed in the ICU when CM came to meet with him. He has Bipap on and appears to be struggling with his breathing. Damon is barely arousable; he will open his eyes briefly and moans on occasion.This a fternoon CM returned to Damon's room and he was awake and conversing with staff. His breathing appears much less labored and he was smiling. Damon refused transfer to [facility] nad continues to be a full code. ADVANCE DIRECTIVES:: None on file Has patient been provided with information about the portal?: No Did the patient sign up for the portal?: No CODE STATUS:: Full Code CODE STATUS COMMENT:: Has had a palliative consult and does not want transfer to tertiary care or a feeding tube but wants to remain a full code at this time. Need pediatric size ET tube if intubated . INSURANCE COVERAGE / FINANCIAL ISSUES:: Medicare. BC BS CURRENT HOME/COMMUNITY SERVICES/EQUIPMENT:: Wheelchair, SNF 1 level of care at this time PRIMARY CARE PHYSICIAN:: Jennifer Marc POTENTIAL DISCHARGE NEEDS:: Will require continued SNF placement PATIENT/FAMILY EDUCATION NEEDS:: Discharge plan, limitations, follow up plan, Ask Me Three. TRANSPORTATION:: vis wheelchair van or ambulance depending on disposition PLAN:: Damon remains in the ICU. Several attempts at intubation during the night were unsuccessful but he is maintaining his oxygen saturation on bipap at this time. He may require transfer to a tertiary care facility. CM will continue to follow and support patient, family and discharge needs.
[2018-11-30 10:00] LABS: Procalcitonin 0.6 ng/mL
[2018-11-30] MEDS: PIPERACILLIN/TAZO 4.5 GM in Normal Saline 100 ML IVPB ×2 (10:04→19:16)
[2018-11-30] MEDS: Enoxaparin 40 MG/0.4 ML SYR SC (10:04)
[2018-11-30] MEDS: Lidocaine 5% Patch 1 PATCH TP (10:04)
[2018-11-30 10:57] LABS: HCO3 32 mmol/L (22-28); pCO2 60 mmHg (34-47); pH 7.34 (7.35-7.45); pO2 88 mmHg (83-108); sO2 98 % (94-98); tCO2 29 mmol/L (22-29)
[2018-11-30 10:59] LABS: Site Right Radial
[2018-11-30 11:00] LABS: FIO2 50 %
[2018-11-30] MEDS: Albuterol/Ipratropium 3 ML UPD VIAL UPD ×2 (12:01→18:32)
--- NOTE | 2018-11-30 12:28 | W.PM.PROGNOT ---
Date of Service Date of service: 11/30/18 Time of Service: 12:29 Subjective Subjective Interval history since last seen: Patient admitted with hypercapneic hypoxic respiratory failure. Intubation attempted 3 times in ED. ABG on bipap setting 12/ was 7.28/67/50, following removal of NG with improvement in air leak and adjustment of settings to 14/5 ABG improved to 7.34/60/88. Given multiple hospitalizations for respiratory failure, possible need for reintubation, and imaging findings concerning for lung cancer, [facility] was consulted who accepted patient for transfer to ICU. Patient initially very lethargic and minimally responsive, however mental status improved, and he was taken off bipap. He refused transfer to [facility]. Risks and benefits, including reasons for transfer were explained and discussed. Patient continued to wish to remain full code but adamantly refused transfer. At this point we will continue to support respiraory status with HFNC, or bipap if needed, steroids, and empiric zosyn given concern for recurrent aspiration PNA. Objective Objective Clinical Data: Abnormal lab results 11/29/18 11/29/18 11/30/18 Range/Units 22:50 22:50 00:10 WBC 11.82 H (4.4-10.8) k/cumm RBC (4.50-6.00) m/cumm Hgb (13.5-17.5) g/dL Hct (40.0-50.0) % MCHC (32.0-36.0) g/dL RDW 14.9 H (11.8-14.1) % Absolute Neutrophils 9.72 H (1.2-6.7) k/cumm Absolute Lymphocytes 0.65 L (1.2-3.4) k/cumm Absolute Monocytes 1.22 H (0.11-0.7) k/cumm pCO2 61 H* (34-47) mmHg pO2 66 L (83-108) mmHg O2 Saturation 93 L (94-98) % ABG pH (7.35-7.45) ABG HCO3 33 H (22-28) mmol/L ABG Total CO2 31 H (22-29) mmol/L ABG Base Excess 7.8 H (-3-3) mmol/L Sodium 135 L (136-145) mmol/L Carbon Dioxide 32.9 H (21.0-32.0) mmol/L Creatinine 0.39 L (0.70-1.30) mg/dL Glucose 163 H (70-100) mg/dL Calcium 8.4 L (8.5-10.1) mg/dL Troponin I (0.00-0.06) ng/mL 11/30/18 11/30/18 11/30/18 Range/Units 02:17 07:55 07:55 WBC 10.97 H (4.4-10.8) k/cumm RBC 4.31 L (4.50-6.00) m/cumm Hgb 12.4 L (13.5-17.5) g/dL Hct 39.1 L (40.0-50.0) % MCHC 31.7 L (32.0-36.0) g/dL RDW 14.3 H (11.8-14.1) % Absolute Neutrophils 9.49 H (1.2-6.7) k/cumm Absolute Lymphocytes 0.27 L (1.2-3.4) k/cumm Absolute Monocytes 1.15 H (0.11-0.7) k/cumm pCO2 > 100 H* (34-47) mmHg pO2 (83-108) mmHg O2 Saturation (94-98) % ABG pH 6.97 L* (7.35-7.45) ABG HCO3 (22-28) mmol/L ABG Total CO2 (22-29) mmol/L ABG Base Excess (-3-3) mmol/L Sodium (136-145) mmol/L Carbon Dioxide (21.0-32.0) mmol/L Creatinine 0.35 L (0.70-1.30) mg/dL Glucose 112 H (70-100) mg/dL Calcium 8.0 L (8.5-10.1) mg/dL Troponin I 0.07 H (0.00-0.06) ng/mL 11/30/18 11/30/18 Range/Units 08:30 10:18 WBC (4.4-10.8) k/cumm RBC (4.50-6.00) m/cumm Hgb (13.5-17.5) g/dL Hct (40.0-50.0) % MCHC (32.0-36.0) g/dL RDW (11.8-14.1) % Absolute Neutrophils (1.2-6.7) k/cumm Absolute Lymphocytes (1.2-3.4) k/cumm Absolute Monocytes (0.11-0.7) k/cumm pCO2 67 H* 60 H (34-47) mmHg pO2 77 L (83-108) mmHg O2 Saturation (94-98) % ABG pH 7.29 L 7.34 L (7.35-7.45) ABG HCO3 32 H 32 H (22-28) mmol/L ABG Total CO2 30 H (22-29) mmol/L ABG Base Excess 5.6 H 6.0 H (-3-3) mmol/L Sodium (136-145) mmol/L Carbon Dioxide (21.0-32.0) mmol/L Creatinine (0.70-1.30) mg/dL Glucose (70-100) mg/dL Calcium (8.5-10.1) mg/dL Troponin I (0.00-0.06) ng/mL Vital Signs Temperature 36.6 C 11/30/18 10:42 Temperature Source Temporal Artery Scan 11/30/18 10:42 Pulse 100 H 11/30/18 12:10 Pulse 95 H 11/30/18 10:31 Respiratory Rate 20 11/30/18 12:10 Respiratory Effort Incrsd Work of Breathing 11/30/18 10:42 Respiratory Depth Shallow 11/30/18 10:42 Respiratory Pattern Normal 11/30/18 10:42 Blood Pressure 126/83 11/30/18 10:42 Blood Pressure Mean 97 11/30/18 10:42 Blood Pressure Position Supine 11/30/18 10:42 Pulse Oximetry 97 11/30/18 12:23 Respiratory End-tidal CO2 46 11/30/18 04:46 Oxygen Delivery Method Nasal Cannula 11/30/18 12:23 Oxygen Flow Rate 10 11/29/18 23:00 Fraction of Inspired Oxygen (FIO2) 50 11/30/18 12:01 Pain Level 0 11/30/18 10:42 Intake & Output 11/29/18 11/30/18 11/30/18 23:59 11:59 23:59 Intake Total 999 / 999 Balance 1000 / 999 Weight 64.455 kg 60.2 kg Intake: IV 1000 / 1000 Other: Comment chronic byrd Laboratory Results WBC 10.97 k/cumm (4.4-10.8) H 11/30/18 07:55 RBC 4.31 m/cumm (4.50-6.00) L 11/30/18 07:55 Hgb 12.4 g/dL (13.5-17.5) L 11/30/18 07:55 Hct 39.1 % (40.0-50.0) L 11/30/18 07:55 MCV 90.7 fL (80-95) 11/30/18 07:55 MCH 28.8 pg (27.0-33.0) 11/30/18 07:55 MCHC 31.7 g/dL (32.0-36.0) L 11/30/18 07:55 RDW 14.3 % (11.8-14.1) H 11/30/18 07:55 Plt Count 138 x1000/uL (130-400) 11/30/18 07:55 MPV 9.3 fL (8.0-11.0) 11/30/18 07:55 Immature Gran % 0.3 11/30/18 07:55 Neutrophils % 86.5 11/30/18 07:55 Lymphocytes % 2.5 11/30/18 07:55 Monocytes % 10.5 11/30/18 07:55 Eosinophils % 0.1 11/30/18 07:55 Basophils % 0.1 11/30/18 07:55 Absolute Neutrophils 9.49 k/cumm (1.2-6.7) H 11/30/18 07:55 Absolute Lymphocytes 0.27 k/cumm (1.2-3.4) L 11/30/18 07:55 Absolute Monocytes 1.15 k/cumm (0.11-0.7) H 11/30/18 07:55 Absolute Eosinophils 0.01 k/cumm (0.0-0.7) 11/30/18 07:55 Absolute Basophils 0.01 k/cumm (0.0-0.2) 11/30/18 07:55 Sample Site Right radial 11/30/18 10:18 pCO2 60 mmHg (34-47) H 11/30/18 10:18 pO2 88 mmHg (83-108) 11/30/18 10:18 O2 Saturation 98 % (94-98) 11/30/18 10:18 ABG pH 7.34 (7.35-7.45) L 11/30/18 10:18 ABG HCO3 32 mmol/L (22-28) H 11/30/18 10:18 ABG Total CO2 29 mmol/L (22-29) 11/30/18 10:18 ABG Base Excess 6.0 mmol/L (-3-3) H 11/30/18 10:18 FiO2 50 % 11/30/18 10:18 Sodium 136 mmol/L (136-145) 11/30/18 07:55 Potassium 4.6 mmol/L (3.5-5.1) 11/30/18 07:55 Chloride 103 mmol/L (98-107) 11/30/18 07:55 Carbon Dioxide 29.8 mmol/L (21.0-32.0) 11/30/18 07:55 Anion Gap 3.2 mmol/L (3-11) 11/30/18 07:55 BUN 17 mg/dL (7-18) 11/30/18 07:55 Creatinine 0.35 mg/dL (0.70-1.30) L 11/30/18 07:55 Estimated GFR/1.73 m2 >= 60.00 (mL/min/1.73m2) 11/30/18 07:55 Glucose 112 mg/dL (70-100) H 11/30/18 07:55 Calcium 8.0 mg/dL (8.5-10.1) L 11/30/18 07:55 Troponin I Cancelled 11/30/18 12:00 Procalcitonin 0.6 ng/mL 11/30/18 07:55
[2018-11-30] MEDS: DOXYCYCLINE 100 MG in Normal Saline 100 ML IVPB (12:32)
[2018-11-30] MEDS: oxyCODONE 10 MG TAB PO ×2 (14:37→18:34)
--- NOTE | 2018-11-30 15:08 | PHARADMIT ---
Addendum entered by Cyrus Dodson III 12/03/18 14:20: Pharmacy Note Subjective [facility]MD thinks a mucus plug has been the offending culprit. Patient requires digital disimpraction every 3 days Objective VS-OK K+3.4 Mag-1.9 Assessment Doxycyline to run full 7 days. Received MagCitrate today Plan Plan is for transfer back to [facility] once set care up. Addendum entered by Cyrus Dodson III 12/02/18 14:18: Pharmacy Note Subjective Patient does not move, has chronic mucus plugs Palliative consult requested. Objective VS-OK K+3.1 Mag-1.8 Labs-WNL, Wgt-56.8 kg Assessment Oxycontin-30mg BID started, Doxycycline IV continues. Plan [place] [facility]. Difficult situation for Hospital. May require intubation, which has failed x 3. May need surgeon to start trach. Addendum entered by Cyrus Dodson III 12/01/18 09:33: Pharmacy Note Subjective [place] [facility] [place]. Failed intubation x 3, MD may try again vs trach. COPD exacerbation vs Pneumonia. Dry cough Mucinex started. Objective VS-OK Wgt-59.9 kg BM on 11/30 Assessment Doxycyline IV with Zosyn ordered, MRSA screen (Nose) Positive. Plan Has small wind pipe requiring child size trach tube, difficult intubation. Original Note: Admission Pharmacy Clinical Review ACUTE RESPIRATORY FAILURE Code Status Full Code Current Weight 60.2 kg Renally Cleared and Narrow Therapeutic Index Meds CrCl ~75ml/min QTc Value / Action Taken QTc 423 BP Control, Fever BP 148/96, HR 99 Electrolytes reviewed Na 136, K+ 4.6, No Mag - notified nurse DVT Prophylaxis lmwh 40mg Opiate Usage / Scheduled Bowel Regimen Ordered oxycodone 10mg q4h prn / yes Plt/SCr for Heparin / Enoxaparin Plt 138, SCr 0.35 INR for Warfarin H/H stable, WBC/Bands H/H 12.4/39.1, WBC 10.97 Antibiotic appropriateness Doxy 100mg q12, zosyn 4.5 q8 Cultures and Sensitivities MRSA screen, sputum, blood all pending Surgical ABX d/c within 24 hr DM control / Insulin Dosing Heart Failure (Check EF%) (FADI's, B-Block, Diuretics) IV to PO Switch Home Meds Reviewed Yes Home Meds Not Ordered Oxycontin 30mg BID Comments Was accepted for transfer [place] [facility] [place] due to multiple comorbidities/multiple hospitilizations/imaging findings concerning for lung cancer but patient refused the transfer
--- NOTE | 2018-11-30 15:23 | CHAPLAIN ---
I had a brief visit with Damon as he was waking up earlier today, and brought him a prayer shawl. I will check in with him tomorrow.
[2018-11-30] MEDS: Normal Saline 1,000 ML 100 ML IV (15:42)
--- NOTE | 2018-11-30 15:50 | NUR.NOTE ---
1530 lab entered pt room then returned to RN desk to report PT refusing lab draw. RN explained reason for troponin and risks of not immediately treating a coronary event, ie permanent heart damage to PT. PT continued to refuse stating, ask me tomorrow-maybe tomorrow. Pt had company in the room, pt's company encouraged pt to allow testing - pt continued to refuse blood draw. 2nd IV site (with lab draw from that was offered and refused) attempt was made unsuccessfully to draw lab from wrist IV site. After failure to obtain from IV site, PT was queried again if he would allow blood draw from lab residential subcontractor and PT again refused. Nursing Note:
[2018-11-30] MEDS: Omnipaque 350 MG/ML 100 ML BTL IJ (16:38)
--- NOTE | 2018-11-30 16:48 | DI.CT_ITS ---
SYMPTOM/DIAGNOSIS: HYPERCAPNIC RESPIRATORY FAILURE, ? MALIGNANCY CHEST CT: Comparison is made with 12 November 2018. Consolidation is again noted in both lower lobes. There has been some improvement in aeration in the right lower lobe bronchi with less fluid or mucus. There has been interval worsening of the left lower lobe consolidation when compared with the previous exam. The bilateral pulmonary masses are stable. No pleural or pericardial effusions are seen. There is no evidence of pulmonary edema. IMPRESSION: Interval worsening of left lower lobe consolidation. Mild improvement in mucus plugging of the right lower lobe. Stable bilateral pulmonary masses.
--- NOTE | 2018-11-30 17:50 | DI.VRAD_ITS ---
EXAM: CT Chest With Contrast EXAM DATE/TIME: 11/30/2018 1:53 PM CLINICAL HISTORY: 68 years old, male; Other: Hypercapneic/resp failure/? Malignancy TECHNIQUE: Imaging protocol: Computed tomography of the chest with intravenous contrast. Radiation optimization: All CT scans at this facility use at least one of these dose optimization techniques: automated exposure control; mA and/or kV adjustment per patient size (includes targeted exams where dose is matched to clinical indication); or iterative reconstruction. COMPARISON: CT CHEST PE CTA 11/12/2018 4:44 AM FINDINGS: Lungs: There is a 1 cm round noncalcified nodule in the right middle lobe. In the left upper lobe there is a similar 1.3 cm nodule. There is a small left pleural effusion with a large area of consolidation occupying majority of the left lower lobe with air bronchograms. Minimal inflammatory reaction along the minor fissure and the posterior segment of the left upper lobe. There is a large air consolidation in the right lower lobe extending from hilum to the diaphragm with air bronchograms. Pleural space: Unremarkable. No pneumothorax. No pleural effusion. Heart: His prominent calcification of the left anterior descending coronary artery. The heart is borderline enlarged. There is a minimal pericardial effusion. Aorta: There is moderate ectasia of the thoracic aorta. Lymph nodes: There multiple nonspecific mediastinal lymph nodes. Bones/joints: There is mild spondylosis in the thoracic spine. Soft tissues: Unremarkable. Adrenals: The posterior aspect of the left adrenal gland and appears of normal enlarged up to 1.5 cm. Kidneys and ureters: There is a 1.9 cm cyst arising from the upper pole of the left kidney. IMPRESSION: 1. There are 2 noncalcified nodules one in the right middle lobe and the other in the left upper lobe could represent metastatic disease. 2. Large area of consolidation in both lower lobes. Is also a small pleural effusion on the left consistent with large areas of pneumonia. An underlying mass in either area can't be completely excluded. 3. 1.5 cm larger in the posterior aspect of the left adrenal gland is nonspecific and could either be an adenoma or less likely a metastasis. He will get down he wanted and look Dictated and Authenticated by: Arcadio Gates MD. Ordering:REGIS Verdin MD
[2018-11-30] MEDS: methylPREDNISolone SUCC 125 MG VIAL 80 MG IVP (18:31)
[2018-11-30] MEDS: Normal Saline Flush 10 ML SYR IVP (18:32)
[2018-11-30] MEDS: Bisacodyl 10 MG SUPP PR (19:03)
[2018-11-30] MEDS: Patch Removal 1 EACH TP (20:33)
[2018-12-01] VITALS (79 sets, daily range): BP systolic 126–167; BP diastolic 79–104; PULSE 76–104; RESP 1–30; TEMP 0–37; O2SAT 86–100
[2018-12-01] MEDS: Bisacodyl 5 MG TABEC 10 MG PO (00:39)
[2018-12-01] MEDS: oxyCODONE 10 MG TAB PO ×2 (00:40→17:41)
[2018-12-01] MEDS: Docusate Sodium 100 MG CAP PO ×3 (00:40→19:40)
[2018-12-01] MEDS: Cyclobenzaprine 10 MG TAB PO (00:40)
[2018-12-01] MEDS: methylPREDNISolone SUCC 125 MG VIAL 80 MG IVP ×2 (00:41→08:45)
[2018-12-01] MEDS: Albuterol/Ipratropium 3 ML UPD VIAL UPD ×4 (00:44→17:40)
[2018-12-01] MEDS: DOXYCYCLINE 100 MG in Normal Saline 100 ML IVPB ×2 (00:45→12:44)
[2018-12-01] MEDS: PIPERACILLIN/TAZO 4.5 GM in Normal Saline 100 ML IVPB ×2 (02:33→09:09)
[2018-12-01] MEDS: Normal Saline 1,000 ML 100 ML IV ×3 (04:28→22:06)
[2018-12-01] MEDS: Finasteride 5 MG TAB PO (06:50)
[2018-12-01 08:11] LABS: Procalcitonin 0.6 ng/mL
[2018-12-01] MEDS: guaiFENesin 600 MG TABCR 1200 MG PO ×2 (08:43→19:40)
[2018-12-01] MEDS: Senna TAB 1 TAB PO ×2 (08:43→19:41)
[2018-12-01] MEDS: Pantoprazole 40 MG TABCR PO (08:43)
[2018-12-01] MEDS: Tamsulosin 0.4 MG CAPCR 0.8 MG PO (08:43)
[2018-12-01] MEDS: Lidocaine 5% Patch 1 PATCH TP (08:44)
[2018-12-01] MEDS: Polyethylene Glycol 3350 17 GM PACKET PO (08:44)
[2018-12-01] MEDS: Enoxaparin 40 MG/0.4 ML SYR SC (08:44)
[2018-12-01 08:51] LABS: pCO2 > 100 mmHg (34-47)
[2018-12-01 09:35] LABS: FIO2L RA L; Site Right Radial; pCO2 39 mmHg (34-47); pH 7.47 (7.35-7.45); pO2 57 mmHg (83-108); sO2 92 % (94-98); tCO2 25 mmol/L (22-29)
[2018-12-01 09:36] LABS: BE 4.9 mmol/L (-3-3); HCO3 29 mmol/L (22-28)
[2018-12-01 10:07] LABS: Abs Immature Grans 0.01 k/cumm (0.0-0.09); Absolute Monocyte Count 0.03 k/cumm (0.11-0.7); Absolute Neutrophil Count 4.86 k/cumm (1.2-6.7); HCT 40.4 % (40.0-50.0); HGB 13.4 g/dL (13.5-17.5); Immature Grans % 0.2; Lymphocytes % 3.9; Mean Corp. HGB Concentration 33.2 g/dL (32.0-36.0); Mean Corpuscular Hemoglobin 29.1 pg (27.0-33.0); Mean Corpuscular Volume 87.8 fL (80-95); Mean Platelet Volume 9.4 fL (8.0-11.0); Monocytes % 0.6; Neutrophils % 95.3; Platelet Count 184 x1000/uL (130-400); RBC Distribution Width 14.4 % (11.8-14.1)
[2018-12-01 10:13] LABS: Anion Gap 12.4 mmol/L (3-11); BUN 9 mg/dL (7-18); CO2 25.6 mmol/L (21.0-32.0); CREATININE 0.33 mg/dL (0.70-1.30); Chloride 101 mmol/L (98-107); Glucose 153 mg/dL (70-100); Magnesium 1.7 mg/dL (1.8-2.4); Potassium 3.4 mmol/L (3.5-5.1); Sodium 139 mmol/L (136-145)
--- NOTE | 2018-12-01 14:07 | PDOC.CMPRO ---
- If Service Date Differs Date of service: 12/01/18 Time of Service: 14:07 Care Management Progress Note S/O: Damon was asleep when CM entered the room, therefore CM was unable to discuss his current plan of care. CM had planned to talk to Damon about setting up a family meeting early next week to go over his goals and plan for discharge. A: Maurice (Damon) is a 68 year old male admitted with acute respiratory failure. P: Damon remains in ICU level of care. If he is medically cleared, anticipate Damon will return to [facility] . He may require transfer to a tertiary care facility. CM will continue to follow and support patient, family, and discharge needs.
--- NOTE | 2018-12-01 15:11 | PGE_ITS ---
Date of Service Date of service: 12/01/18 Time of Service: 15:11 Assessment and Plan Assessment and plan (1) Acute and chronic respiratory failure ([id number]): Status: Acute Assessment and plan: Improved with NIPPV, steroids, and aggressive nebs. Likely on the basis of continued Mucous Plugging +/- repeat infection. - Sputum Culture growing MRSA - discontinue Pip-Cristian and continue Doxycycline, day #2. - Continue steroids and wean as able. Continue aggressive nebs, BiPAP if needed. - Would benefit from aggressive pulmonary toilet - however, unlikely to tolerate flutter vest. Continue expectorant therapy, Acapella. - ABG had been improving, but now with normalization of PaCO2 and development of mild elevation in PH without further BiPAP therapy. Potential tachypnea in setting of witholding of chronic long-acting opiate therapy - restart Oxycontin which had been held in setting of altered mental status. The patient's underlying pulmonary disease appears significant, with potential for malignancy by imaging, as well as evidence of rapid decompensation with inability to intubate due to either an endobronchial lesion or an extremely tough airway. Patient refused transfer to a tertiary center, and insists on Full Code status. He understands difficulty with treatment given the above restrictions, and requests that in the future attempts should be made with intubation with a smaller ET Tube (ie. pediatric) with extra 'lubrication' - states that this has been in the case in the past, even with [place] [facility] He also understands and even expects a possible tracheostomy urgently if needed, and understands the deleterious consequences if the above is unsuccessful. Qualifiers: Respiratory failure complication: hypoxia and hypercapnia Qualified Code(s): J96.21 - Acute and chronic respiratory failure with hypoxia; J96.22 - Acute and chronic respiratory failure with hypercapnia (2) Pulmonary infiltrate: Status: Acute Assessment and plan: Potential pneumonia on the basis of mucous plugging, with current sputum culture growing MRSA. Also with concern regarding aspiration by review of records, although [facility] with reported upgrade in diet to regular with thin liquids on 11/23. Unfortunately speech therapy is unavailable currently at this instituion, and patient is refusing a modified diet. Will resume home diet and monitor for aspiration closely. (3) Abnormal CT of the chest: Status: Acute Assessment and plan: Potential for malignancy by official read - will need follow-up as outpatient. (4) Chronic pulmonary aspiration: Status: Acute Assessment and plan: As above Qualifiers: Encounter type: subsequent encounter Qualified Code(s): T17.908D - Unspecified foreign body in respiratory tract, part unspecified causing other injury, subsequent encounter (5) Chordoma of spine: Status: Chronic Assessment and plan: s/p multiple prior spinal surgeries, with subsequent resultant LE weakness, ambulatory dysfunction, and chronic pain requiring opiate use. - Continue Diclofenac, Cyclobenzaprine, and prn Oxycodone. Resume home Oxycontin dosing. (6) BPH (benign prostatic hyperplasia): Status: Chronic Assessment and plan: Continue Flomax, Proscar. (7) DVT prophylaxis: Status: Acute Assessment and plan: SC Enoxaparin. Ensure GI Prophylaxis as well. (8) Advance directive discussed with patient: Status: Acute Assessment and plan: Full Code. Subjective Subjective Interval history since last seen: 68 year with a past medical history signif icant for COPD, admitted from [facility] Emergency Department 11/30 with a diagnosis of Hypoxic, Hypercapneic Respiratory Failure. Mr. De Guzman is a chronic resident at [facility]. He has a past Medical History significant for COPD, Cervical Cordoma s/p multiple spinal surgeries on chronic narcotics, Bilateral LE weakness with ambulatory dysfunction, HTN, and neurogenic bladder with urinary retention, s/p byrd catheter placement. He also has a prior history of Mucous Plugging, and was recently hospitalized and treated for pneumonia with concern for aspiration. He presented to the ED with noted tachypnia and hypoxia, in marked respiratory distress - he was initially seen at [facility] with similiar complaints, and discharged following IVFs and nebulizer treatment. Initial work-up was significant for a mild leukocytosis, elevated bicarb, hypoxia and hypercapnia by ABG that appeared compensated, and bibasilar airspace disease by imaging. Shortly after presentation the patient deteriorated, becoming obtunded and unarousable - repeat ABG with development of new acidosis in setting of markedly worsening PCO2. He failed 3 seperate attempts at intubation in the ED - twice with direct Laryngoscopy, with each successful but with loss of airway in attempt at repositioning due to ETT being in a high position, and a third attempt while utilizing a glide Scope but with inability to advance tube in setting of a high position (resistance with difficulty in ventilation). The resultant removed tube showed evidence of being kinked. The patient was instead maintained on BiPAP with significant improvement in both mental status and in hypercapnia and acidosis. At that time the patient was admitted to the ICU for further evaluation and treatment. Mr. De Guzman was recently hospitalized at [facility] between 11/12-11/17, treated with broad-spectrum antibiotics for a presumed aspiration pneumonia (felt due to chronic aspiration). Also with noted concern for mucous plugging and difficulty with clearing his mucous by records, imaging, and verbal report. 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 The patient has been maintained on broad-spectrum antibiotic therapy, with high dose steroids and frequent nebs, and required short course of BiPAP yesterday. ABG repeated and with improvement in PCO2, but now likely below baseline, PH that is slightly above normal, and continued hypoxia. No overnight events reported. Remains afebrile. Exam Narrative Exam Narrative: General: Patient appears chronically ill, AAOX3, NAD Neck: Supple CV: Regular, borderline tachycardic, S1S2, No rubs, murmurs, or gallops. Pulmonary: Good air entry without wheezing, no crackles or rhonchi Abdomen: + Bowel Sounds, soft, nontender, nondistended Vascular: No lower extremity edema Psych: Normal mood and affect. Objective Objective Clinical Data: Abnormal lab results 11/30/18 12/01/18 12/01/18 Range/Units 02:17 06:45 06:45 Hgb 13.4 L (13.5-17.5) g/dL RDW 14.4 H (11.8-14.1) % Absolute Lymphocytes 0.20 L (1.2-3.4) k/cumm Absolute Monocytes 0.03 L (0.11-0.7) k/cumm pCO2 > 100 H* (34-47) mmHg pO2 (83-108) mmHg O2 Saturation (94-98) % ABG pH (7.35-7.45) ABG HCO3 (22-28) mmol/L ABG Base Excess (-3-3) mmol/L Potassium 3.4 L D (3.5-5.1) mmol/L Anion Gap 12.4 H (3-11) mmol/L Creatinine 0.33 L (0.70-1.30) mg/dL Glucose 153 H (70-100) mg/dL Calcium 8.0 L (8.5-10.1) mg/dL Magnesium 1.7 L (1.8-2.4) mg/dL 12/01/18 Range/Units 09:20 Hgb (13.5-17.5) g/dL RDW (11.8-14.1) % Absolute Lymphocytes (1.2-3.4) k/cumm Absolute Monocytes (0.11-0.7) k/cumm pCO2 (34-47) mmHg pO2 57 L (83-108) mmHg O2 Saturation 92 L (94-98) % ABG pH 7.47 H (7.35-7.45) ABG HCO3 29 H (22-28) mmol/L ABG Base Excess 4.9 H (-3-3) mmol/L Potassium (3.5-5.1) mmol/L Anion Gap (3-11) mmol/L Creatinine (0.70-1.30) mg/dL Glucose (70-100) mg/dL Calcium (8.5-10.1) mg/dL Magnesium (1.8-2.4) mg/dL Vital Signs Temperature 36.6 C 12/01/18 14:11 Temperature Source Temporal Artery Scan 12/01/18 14:11 Pulse 92 H 12/01/18 14:11 Pulse 84 12/01/18 04:00 Respiratory Rate 22 12/01/18 14:11 Respiratory Effort 12/01/18 14:11 Respiratory Depth Shallow 12/01/18 14:11 Respiratory Pattern Tachypnea 12/01/18 14:11 Blood Pressure 141/82 H 12/01/18 14:11 Blood Pressure Mean 101 12/01/18 14:11 Blood Pressure Position Right Lateral 12/01/18 14:11 Pulse Oximetry 91 L 12/01/18 14:11 Respiratory End-tidal CO2 46 11/30/18 04:46 Oxygen Delivery Method Hi Flow Nasal Cannula 12/01/18 14:11 Oxygen Flow Rate 21 12/01/18 14:11 Fraction of Inspired Oxygen (FIO2) 40 12/01/18 14:11 Pain Level 0 12/01/18 14:11 Intake & Output 11/30/18 12/01/18 12/01/18 23:59 11:59 23:59 Intake Total 1043.333 / 2143.333 1436.667 / 2635.000 1198.333 / 2635.000 Output Total 950 / 2250 1400 / 1400 Balance 93.333 / -106.667 36.667 / 5419.701 7168.333 / 1235.000 Weight 60.2 kg 59.9 kg Intake: IV 803.333 / 1903.333 596.667 / 6210.862 7406.333 / 1795.000 Oral 240 / 240 840 / 840 Output: Urine 950 / 2250 1400 / 1400 Other: Urine Color Yellow Yellow Urine Appearance Clear Clear Clots Urine Odor Normal Comment Baseline retention with chronic indwelling byrd byrd to gravity byrd to gravity Stool Occult Blood Negative Stool Size Moderate Stool Characteristics Hard Brown Laboratory Results WBC 5.10 k/cumm (4.4-10.8) D 12/01/18 06:45 RBC 4.60 m/cumm (4.50-6.00) 12/01/18 06:45 Hgb 13.4 g/dL (13.5-17.5) L 12/01/18 06:45 Hct 40.4 % (40.0-50.0) 12/01/18 06:45 MCV 87.8 fL (80-95) 12/01/18 06:45 MCH 29.1 pg (27.0-33.0) 12/01/18 06:45 MCHC 33.2 g/dL (32.0-36.0) 12/01/18 06:45 RDW 14.4 % (11.8-14.1) H 12/01/18 06:45 Plt Count 184 x1000/uL (130-400) 12/01/18 06:45 MPV 9.4 fL (8.0-11.0) 12/01/18 06:45 Immature Gran % 0.2 12/01/18 06:45 Neutrophils % 95.3 12/01/18 06:45 Lymphocytes % 3.9 12/01/18 06:45 Monocytes % 0.6 12/01/18 06:45 Eosinophils % 0.0 12/01/18 06:45 Basophils % 0.0 12/01/18 06:45 Absolute Neutrophils 4.86 k/cumm (1.2-6.7) 12/01/18 06:45 Absolute Lymphocytes 0.20 k/cumm (1.2-3.4) L 12/01/18 06:45 Absolute Monocytes 0.03 k/cumm (0.11-0.7) L 12/01/18 06:45 Absolute Eosinophils 0.00 k/cumm (0.0-0.7) 12/01/18 06:45 Absolute Basophils 0.00 k/cumm (0.0-0.2) 12/01/18 06:45 Sample Site Right radial 12/01/18 09:20 pCO2 39 mmHg (34-47) 12/01/18 09:20 pO2 57 mmHg (83-108) L 12/01/18 09:20 O2 Saturation 92 % (94-98) L 12/01/18 09:20 ABG pH 7.47 (7.35-7.45) H 12/01/18 09:20 ABG HCO3 29 mmol/L (22-28) H 12/01/18 09:20 ABG Total CO2 25 mmol/L (22-29) 12/01/18 09:20 ABG Base Excess 4.9 mmol/L (-3-3) H 12/01/18 09:20 Oxygen Liter Flow Ra L 12/01/18 09:20 FiO2 50 % 11/30/18 10:18 Sodium 139 mmol/L (136-145) 12/01/18 06:45 Potassium 3.4 mmol/L (3.5-5.1) L D 12/01/18 06:45 Chloride 101 mmol/L (98-107) 12/01/18 06:45 Carbon Dioxide 25.6 mmol/L (21.0-32.0) 12/01/18 06:45 Anion Gap 12.4 mmol/L (3-11) H 12/01/18 06:45 BUN 9 mg/dL (7-18) D 12/01/18 06:45 Creatinine 0.33 mg/dL (0.70-1.30) L 12/01/18 06:45 Estimated GFR/1.73 m2 >= 60.00 (mL/min/1.73m2) 12/01/18 06:45 Glucose 153 mg/dL (70-100) H 12/01/18 06:45 Calcium 8.0 mg/dL (8.5-10.1) L 12/01/18 06:45 Magnesium 1.7 mg/dL (1.8-2.4) L 12/01/18 06:45 Troponin I Cancelled 11/30/18 15:00 Procalcitonin 0.6 ng/mL 12/01/18 06:45
[2018-12-01] MEDS: methylPREDNISolone SUCC 125 MG VIAL 60 MG IVP (16:39)
[2018-12-01] MEDS: Normal Saline Flush 10 ML SYR IVP (16:40)
[2018-12-01] MEDS: Magnesium Oxide 400 MG TAB PO (17:30)
[2018-12-01] MEDS: Potassium Chloride 20 MEQ TABCR 40 MEQ PO (17:30)
[2018-12-01] MEDS: oxyCODONE-CR 10 MG TABCR 30 MG PO (19:38)
[2018-12-01] MEDS: Patch Removal 1 EACH TP (20:50)
[2018-12-02] VITALS (46 sets, daily range): BP systolic 116–169; BP diastolic 77–114; PULSE 74–94; RESP 1–27; TEMP 31–37; O2SAT 91–96
[2018-12-02] MEDS: Albuterol/Ipratropium 3 ML UPD VIAL UPD ×7 (00:20→21:00)
[2018-12-02] MEDS: DOXYCYCLINE 100 MG in Normal Saline 100 ML IVPB ×2 (00:22→11:42)
[2018-12-02] MEDS: methylPREDNISolone SUCC 125 MG VIAL 60 MG IVP ×2 (00:23→07:59)
[2018-12-02] MEDS: Normal Saline Flush 10 ML SYR IVP (00:24)
[2018-12-02] MEDS: Enoxaparin 40 MG/0.4 ML SYR SC (07:58)
[2018-12-02] MEDS: guaiFENesin 600 MG TABCR 1200 MG PO (07:59)
[2018-12-02] MEDS: Pantoprazole 40 MG TABCR PO (08:00)
[2018-12-02] MEDS: Finasteride 5 MG TAB PO (08:00)
[2018-12-02] MEDS: Docusate Sodium 100 MG CAP PO ×2 (08:00→20:51)
[2018-12-02] MEDS: oxyCODONE-CR 10 MG TABCR 30 MG PO ×2 (08:00→20:52)
[2018-12-02] MEDS: Tamsulosin 0.4 MG CAPCR 0.8 MG PO (08:00)
[2018-12-02] MEDS: Senna TAB 1 TAB PO ×2 (08:01→20:59)
[2018-12-02] MEDS: Normal Saline 1,000 ML 100 ML IV ×2 (08:47→18:44)
[2018-12-02 11:11] LABS: Abs Immature Grans 0.01 k/cumm (0.0-0.09); Absolute Lymphocyte Count 0.15 k/cumm (1.2-3.4); Absolute Monocyte Count 0.28 k/cumm (0.11-0.7); Absolute Neutrophil Count 5.02 k/cumm (1.2-6.7); HCT 39.9 % (40.0-50.0); HGB 13.5 g/dL (13.5-17.5); Immature Grans % 0.2; Lymphocytes % 2.7; Mean Corp. HGB Concentration 33.8 g/dL (32.0-36.0); Mean Corpuscular Volume 85.6 fL (80-95); Mean Platelet Volume 8.6 fL (8.0-11.0); Monocytes % 5.1; Platelet Count 211 x1000/uL (130-400); RBC 4.66 m/cumm (4.50-6.00); RBC Distribution Width 14.4 % (11.8-14.1); White Blood Cell Count 5.46 k/cumm (4.4-10.8)
[2018-12-02 11:18] LABS: Anion Gap 7.9 mmol/L (3-11); BUN 10 mg/dL (7-18); CO2 29.1 mmol/L (21.0-32.0); CREATININE 0.34 mg/dL (0.70-1.30); Calcium 8.3 mg/dL (8.5-10.1); Chloride 102 mmol/L (98-107); Glucose 147 mg/dL (70-100); Magnesium 1.8 mg/dL (1.8-2.4); Potassium 3.1 mmol/L (3.5-5.1); Sodium 139 mmol/L (136-145)
--- NOTE | 2018-12-02 11:41 | PGE_ITS ---
Date of Service Date of service: 12/02/18 Time of Service: 11:41 Assessment and Plan Assessment and plan (1) Acute and chronic respiratory failure ([id number]): Status: Acute Assessment and plan: Improved with NIPPV, steroids, and aggressive nebs. Likely on the basis of continued Mucous Plugging +/- repeat infection. - Sputum Culture growing MRSA - discontinued Pip-Cristian. Currently with day #3 of Doxycycline. - Continue steroids and wean as able. Continue aggressive nebs, BiPAP if needed. - Would benefit from aggressive pulmonary toilet - is agreeable to flutter vest. Continue expectorant therapy, Acapella. - ABG had been improving, but yesterday showed likely inappropriate normalization of PaCO2 and development of mild elevation in PH without further BiPAP therapy. Potential tachypnea in setting of witholding of chronic long- acting opiate therapy - restarted Oxycontin which had been held in setting of altered mental status, now appears improved but patient refusing repeat ABG. The patient's underlying pulmonary disease appears significant, with potential for malignancy by imaging, as well as evidence of rapid decompensation (probable mucous plugging) with inability to intubate due to either an endobronchial lesion or an extremely tough airway. Patient refused transfer to a tertiary center, and insists on Full Code status. He understands difficulty with treatment given the above restrictions, and requests that in the future attempts should be made with intubation with a smaller ET Tube (ie. pediatric) with extra 'lubrication' - states that this has been in the case in the past, even with attempted intubation at [facility]. He also understands and even expects a possible tracheostomy urgently if needed, and understands the deleterious consequences if the above is unsuccessful. He will consider follow-up with a warp scouring vat tender for further work-up of his imaging abnormalities as an outpatient. Qualifiers: Respiratory failure complication: hypoxia and hypercapnia Qualified Code(s): J96.21 - Acute and chronic respiratory failure with hypoxia; J96.22 - Acute and chronic respiratory failure with hypercapnia (2) Pulmonary infiltrate: Status: Acute Assessment and plan: Potential pneumonia on the basis of mucous plugging, with current sputum culture growing MRSA. Also with concern regarding aspiration by review of records, although [facility] with reported upgrade in diet to regular with thin liquids on 9/5. Unfortunately speech therapy is unavailable currently at this instituion, and patient is refusing a modified diet. Will resume home diet and monitor for aspiration closely. - Sputum + for MRSA. Continue day #3 of Doxy. (3) Abnormal CT of the chest: Status: Acute Assessment and plan: Potential for malignancy by official read - will need pulmonary follow-up as outpatient. (4) Chronic pulmonary aspiration: Status: Acute Assessment and plan: As above Qualifiers: Encounter type: subsequent encounter Qualified Code(s): T17.908D - Unspecified foreign body in respiratory tract, part unspecified causing other injury, subsequent encounter (5) Chordoma of spine: Status: Chronic Assessment and plan: s/p multiple prior spinal surgeries, with subsequent resultant LE weakness, ambulatory dysfunction, and chronic pain requiring opiate use. - Continue Diclofenac, Cyclobenzaprine, and prn Oxycodone. Resumed home Oxycontin dosing as well. (6) BPH (benign prostatic hyperplasia): Status: Chronic Assessment and plan: Continue Flomax, Proscar. (7) DVT prophylaxis: Status: Acute Assessment and plan: SC Enoxaparin. Ensure GI Prophylaxis as well. (8) Advance directive discussed with patient: Status: Acute Assessment and plan: Full Code. Subjective Subjective Interval history since last seen: 68 year with a past medical history significant for COPD, admitted from [facility] Emergency Department 11/30 with a diagnosis of Hypoxic, Hypercapneic Respiratory Failure. Mr. De Guzman is a chronic resident at [facility]. He has a past Medical History significant for COPD, Cervical Cordoma s/p multiple spinal surgeries on chronic narcotics, Bilateral LE weakness with ambulatory dysfunction, HTN, and neurogenic bladder with urinary retention, s/p byrd catheter placement. He is essentially bedbound. He also has a prior history of Mucous Plugging, and was recently hospitalized and treated for pneumonia with concern for aspiration and mucous plugging. He presented to the ED with noted tachypnia and hypoxia, in marked respiratory distress - he was initially seen at [facility] with similiar complaints, and discharged following IVFs and nebulizer treatment. Initial work-up was significant for a mild leukocytosis, elevated bicarb, hypoxia and hypercapnia by ABG that appeared compensated, and bibasilar airspace disease by imaging. Shortly after presentation the patient deteriorated, becoming obtunded and unarousable - repeat ABG with development of new acidosis in setting of markedly worsening PCO2. He failed 3 seperate attempts at intubation in the ED - twice with direct Laryngoscopy, with each successful but with loss of airway in attempt at repositioning due to ETT being in a high position, and a third attempt while utilizing a glide Scope but with inability to advance tube in setting of a high position (resistance with difficu lty in ventilation). The resultant removed tube showed evidence of being kinked. The patient was instead maintained on BiPAP with significant improvement in both mental status and in hypercapnia and acidosis. At that time the patient was admitted to the ICU for further evaluation and treatment. Mr. De Guzman was recently hospitalized at [facility] between 11/12-11/17, treated with broad-spectrum antibiotics for a presumed aspiration pneumonia (felt due to chronic aspiration). Also with noted concern for mucous plugging and difficulty with clearing his mucous by records, imaging, and verbal report. 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 The patient had been maintained on broad-spectrum antibiotic therapy, with high dose steroids and frequent nebs, and required short course of BiPAP initially. He remains on doxycycline now with sputum + for MRSA. ABG repeated and with improvement in PCO2, but now likely below baseline, with PH that was slightly above normal and continued hypoxia. He refused a repeat ABG this morning. No overnight events reported. Remains afebrile. Exam Narrative Exam Narrative: General: Patient appears chronically ill, AAOX3, NAD Neck: Supple CV: Regular, borderline tachycardic, S1S2, No rubs, murmurs, or gallops. Pulmonary: Good air entry without wheezing, no crackles or rhonchi. Overall improved. Abdomen: + Bowel Sounds, soft, nontender, nondistended Vascular: No lower extremity edema Psych: Normal mood and affect. Objective Objective Clinical Data: Abnormal lab results 12/02/18 12/02/18 Range/Units 11:00 11:00 Hct 39.9 L (40.0-50.0) % RDW 14.4 H (11.8-14.1) % Absolute Lymphocytes 0.15 L (1.2-3.4) k/cumm Potassium 3.1 L (3.5-5.1) mmol/L Creatinine 0.34 L (0.70-1.30) mg/dL Glucose 147 H (70-100) mg/dL Calcium 8.3 L (8.5-10.1) mg/dL Vital Signs Temperature 36.7 C 12/02/18 03:30 Temperature Source Temporal Artery Scan 12/01/18 23:51 Pulse 94 H 12/02/18 08:00 Pulse 77 12/02/18 06:01 Respiratory Rate 16 12/02/18 08:00 Respiratory Effort 12/02/18 08:00 Respiratory Depth Normal 12/02/18 08:00 Respiratory Pattern Normal 12/02/18 08:00 Blood Pressure 140/109 H 12/02/18 08:00 Blood Pressure Mean 126 12/02/18 06:00 Blood Pressure Position Supine 12/01/18 23:51 Pulse Oximetry 93 L 12/02/18 07:37 Respiratory End-tidal CO2 46 11/30/18 04:46 Oxygen Delivery Method Hi Flow Nasal Cannula 12/02/18 03:30 Oxygen Flow Rate 40 12/02/18 03:30 Fraction of Inspired Oxygen (FIO2) 21 12/02/18 03:30 Pain Level 2 12/02/18 09:00 Intake & Output 12/01/18 12/01/18 12/02/18 11:59 23:59 11:59 Intake Total 1436.667 / 3500.000 2063.333 / 3500.000 1340 / 1340 Output Total 1400 / 3200 1800 / 3200 750 / 750 Balance 36.667 / 300.000 263.333 / 300.000 590 / 590 Weight 59.9 kg 56.8 kg Intake: IV 596.667 / 2610.000 2013.333 / 2610.000 1100 / 1100 Oral 840 / 890 50 / 890 240 / 240 Output: Urine 1400 / 3200 1800 / 3200 750 / 750 Other: Urine Color Yellow Pale Light Kesha Yellow Urine Appearance Clear Clear Clear Clots Comment byrd to gravity Chronic byrd is in place due to pt hx of retention; draining clear yellow urine. Chronic byrd draining Laboratory Results WBC 5.46 k/cumm (4.4-10.8) 12/02/18 11:00 RBC 4.66 m/cumm (4.50-6.00) 12/02/18 11:00 Hgb 13.5 g/dL (13.5-17.5) 12/02/18 11:00 Hct 39.9 % (40.0-50.0) L 12/02/18 11:00 MCV 85.6 fL (80-95) 12/02/18 11:00 MCH 29.0 pg (27.0-33.0) 12/02/18 11:00 MCHC 33.8 g/dL (32.0-36.0) 12/02/18 11:00 RDW 14.4 % (11.8-14.1) H 12/02/18 11:00 Plt Count 211 x1000/uL (130-400) 12/02/18 11:00 MPV 8.6 fL (8.0-11.0) 12/02/18 11:00 Immature Gran % 0.2 12/02/18 11:00 Neutrophils % 92.0 12/02/18 11:00 Lymphocytes % 2.7 12/02/18 11:00 Monocytes % 5.1 12/02/18 11:00 Eosinophils % 0.0 12/02/18 11:00 Basophils % 0.0 12/02/18 11:00 Absolute Neutrophils 5.02 k/cumm (1.2-6.7) 12/02/18 11:00 Absolute Lymphocytes 0.15 k/cumm (1.2-3.4) L 12/02/18 11:00 Absolute Monocytes 0.28 k/cumm (0.11-0.7) 12/02/18 11:00 Absolute Eosinophils 0.00 k/cumm (0.0-0.7) 12/02/18 11:00 Absolute Basophils 0.00 k/cumm (0.0-0.2) 12/02/18 11:00 Sample Site Cancelled 12/01/18 09:24 pCO2 Cancelled 12/01/18 09:24 pO2 Cancelled 12/01/18 09:24 O2 Saturation Cancelled 12/01/18 09:24 ABG pH Cancelled 12/01/18 09:24 ABG HCO3 Cancelled 12/01/18 09:24 ABG Total CO2 Cancelled 12/01/18 09:24 ABG Base Excess Cancelled 12/01/18 09:24 Oxygen Liter Flow Cancelled 12/01/18 09:24 FiO2 Cancelled 12/01/18 09:24 Sodium 139 mmol/L (136-145) 12/02/18 11:00 Potassium 3.1 mmol/L (3.5-5.1) L 12/02/18 11:00 Chloride 102 mmol/L (98-107) 12/02/18 11:00 Carbon Dioxide 29.1 mmol/L (21.0-32.0) 12/02/18 11:00 Anion Gap 7.9 mmol/L (3-11) 12/02/18 11:00 BUN 10 mg/dL (7-18) 12/02/18 11:00 Creatinine 0.34 mg/dL (0.70-1.30) L 12/02/18 11:00 Estimated GFR/1.73 m2 >= 60.00 (mL/min/1.73m2) 12/02/18 11:00 Glucose 147 mg/dL (70-100) H 12/02/18 11:00 Calcium 8.3 mg/dL (8.5-10.1) L 12/02/18 11:00 Magnesium 1.8 mg/dL (1.8-2.4) 12/02/18 11:00 Troponin I Cancelled 11/30/18 15:00 Procalcitonin 0.6 ng/mL 12/01/18 06:45
[2018-12-02] MEDS: Potassium Chloride 20 MEQ TABCR 40 MEQ PO ×2 (15:50→22:19)
[2018-12-02] MEDS: Magnesium Oxide 400 MG TAB PO (15:51)
--- NOTE | 2018-12-02 15:59 | PDOC.CMPRO ---
Care Management Progress Note S/O: Dr. Roberto visited with him today and completed a Palliative Care Consult. He firmly refuses to consider transfer to [facility] to address the masses found to interfere with his airway and the ability to intubate him. Maurice now wishes no intubation but does want immediate Bipap treatment. Has now requested DNI. Dr. Roberto will visit him again on Tuesday and wants to complete a new COLST form documenting his request prior to his discharge. A: 68 y.o male admitted for acute respiratory failure. Remains at ICU level of care. P: Maurice will return to [facility] when medically cleared for discharge.
[2018-12-02] MEDS: methylPREDNISolone SUCC 40 MG VIAL IV (17:11)
[2018-12-02] MEDS: Patch Removal 1 EACH TP (23:22)
[2018-12-03] VITALS (14 sets, daily range): BP systolic 123–139; BP diastolic 88–103; PULSE 71–101; RESP 1–22; TEMP 36–36.8; O2SAT 93–97
[2018-12-03] MEDS: DOXYCYCLINE 100 MG in Normal Saline 100 ML IVPB ×2 (00:58→12:33)
[2018-12-03] MEDS: Normal Saline 1,000 ML 100 ML IV (05:38)
[2018-12-03 07:06] LABS: Abs Immature Grans 0.01 k/cumm (0.0-0.09); Absolute Lymphocyte Count 0.42 k/cumm (1.2-3.4); Absolute Monocyte Count 0.48 k/cumm (0.11-0.7); Absolute Neutrophil Count 4.19 k/cumm (1.2-6.7); HCT 41.1 % (40.0-50.0); HGB 13.7 g/dL (13.5-17.5); Immature Grans % 0.2; Lymphocytes % 8.2; Mean Corp. HGB Concentration 33.3 g/dL (32.0-36.0); Mean Corpuscular Hemoglobin 28.8 pg (27.0-33.0); Mean Corpuscular Volume 86.5 fL (80-95); Mean Platelet Volume 8.8 fL (8.0-11.0); Monocytes % 9.4; Neutrophils % 82.2; Platelet Count 202 x1000/uL (130-400); RBC 4.75 m/cumm (4.50-6.00); RBC Distribution Width 14.6 % (11.8-14.1)
[2018-12-03 07:22] LABS: Anion Gap 7.1 mmol/L (3-11); BUN 9 mg/dL (7-18); CO2 28.9 mmol/L (21.0-32.0); CREATININE 0.27 mg/dL (0.70-1.30); Calcium 8.6 mg/dL (8.5-10.1); Chloride 104 mmol/L (98-107); Glucose 98 mg/dL (70-100); Magnesium 1.9 mg/dL (1.8-2.4); Potassium 3.4 mmol/L (3.5-5.1); Sodium 140 mmol/L (136-145)
[2018-12-03] MEDS: Albuterol/Ipratropium 3 ML UPD VIAL UPD ×3 (07:24→18:18)
[2018-12-03] MEDS: methylPREDNISolone SUCC 40 MG VIAL IV (07:30)
[2018-12-03] MEDS: Enoxaparin 40 MG/0.4 ML SYR SC (07:31)
[2018-12-03] MEDS: Potassium Chloride 20 MEQ TABCR 40 MEQ PO (09:01)
[2018-12-03] MEDS: Magnesium Oxide 400 MG TAB PO (09:01)
[2018-12-03] MEDS: guaiFENesin 600 MG TABCR 1200 MG PO (09:02)
[2018-12-03] MEDS: Docusate Sodium 100 MG CAP PO ×2 (09:02→20:02)
[2018-12-03] MEDS: Finasteride 5 MG TAB PO (09:02)
[2018-12-03] MEDS: Tamsulosin 0.4 MG CAPCR 0.8 MG PO (09:03)
[2018-12-03] MEDS: Pantoprazole 40 MG TABCR PO (09:03)
[2018-12-03] MEDS: oxyCODONE-CR 10 MG TABCR 30 MG PO ×2 (09:03→20:01)
[2018-12-03] MEDS: Senna TAB 1 TAB PO ×2 (09:03→20:02)
--- NOTE | 2018-12-03 10:11 | PDOC.CMPRO ---
Care Management Progress Note S/O: Dr. Roberto visited Maurice Tuesday12/02/18 and completed a Palliative Care Consult. Code Status changed to DNI. Dr. Roberto will visit him again on Tuesday and wants to complete a new COLST form documenting his request prior to his discharge back to [facility]. COLST form is on the chart for her to complete and sign. Maurice is willing to see a Emergency Vehicle Driver who can begin to address the masses interfering with his airway. Appointment needs to be scheduled as an Outpatient. Maurice also needs a Trilegy machine and Flutter vest. [employer] does have a nationwide contract with [employer] and we will inquire about the Flutter Vest. Equipment may need to be secured by [employer] when he returns which could be as soon as Tuesday12/04/18. A: 68 y.o male admitted for acute respiratory failure. Status reduced to Acute M/S level of care. P: Maurice will return to [facility] when medically cleared for discharge. OP Appointment with Pulmonology, Trilegy and Flutter Vest equipment will need to be scheduled for follow up by [facility].
--- NOTE | 2018-12-03 10:27 | PGE_ITS ---
Date of Service Date of service: 12/03/18 Time of Service: 10:27 Assessment and Plan Assessment and plan (1) Acute and chronic respiratory failure ([id number]): Status: Acute Assessment and plan: Improved with NIPPV, steroids, and aggressive nebs. Likely on the basis of continued Mucous Plugging +/- repeat infection. - Sputum Culture growing MRSA - discontinued Pip-Cristian. Currently with day #4 of Doxycycline. - Continue steroids and wean as able - change to oral formulation today. Continue nebs, BiPAP if needed. - Would benefit from aggressive pulmonary toilet - is agreeable to flutter vest, but unsure if insurance will cover. Is also a good candidate for NIPPV with a home Trilogy unit. Continue expectorant therapy, Acapella. The patient's underlying pulmonary disease appears significant, with potential for malignancy by imaging, as well as evidence of rapid decompensation (probable mucous plugging) with inability to intubate due to either an endobronchial lesion or an extremely tough airway. Patient refused transfer to a tertiary center initially. He is now agreeable to a DNI status. He will consider follow- up with a youth advocate for further work-up of his imaging abnormalities as an outpatient. Qualifiers: Respiratory failure complication: hypoxia and hypercapnia Qualified Code(s): J96.21 - Acute and chronic respiratory failure with hypoxia; J96.22 - Acute and chronic respiratory failure with hypercapnia (2) Pulmonary infiltrate: Status: Acute Assessment and plan: Potential pneumonia on the basis of mucous plugging, with current sputum culture growing MRSA. Also with concern regarding aspiration by review of records, although [facility] with reported upgrade in diet to regular with thin liquids on 11/23. Unfortunately speech therapy is unavailable currently at this instituion, and patient is refusing a modified diet. Will resume home diet and monitor for aspiration closely. - Sputum + for MRSA. Continue day #4 of Doxy. (3) Abnormal CT of the chest: Status: Acute Assessment and plan: Potential for malignancy by official read - will need pulmonary follow-up as outpatient. (4) Chronic pulmonary aspiration: Status: Acute Assessment and plan: As above Qualifiers: Encounter type: subsequent encounter Qualified Code(s): T17.908D - Unspecified foreign body in respiratory tract, part unspecified causing other injury, subsequent encounter (5) Chordoma of spine: Status: Chronic Assessment and plan: s/p multiple prior spinal surgeries, with subsequent resultant LE weakness, ambulatory dysfunction, and chronic pain requiring opiate use. - Continue Diclofenac, Cyclobenzaprine, and prn Oxycodone. Resumed home Oxycontin dosing as well. (6) BPH (benign prostatic hyperplasia): Status: Chronic Assessment and plan: Continue Flomax, Proscar. (7) DVT prophylaxis: Status: Acute Assessment and plan: SC Enoxaparin. Ensure GI Prophylaxis as well. (8) Advance directive discussed with patient: Status: Acute Assessment and plan: DNI. Subjective Subjective Interval history since last seen: 68 year with a past medical history significant for COPD, admitted from [facility] Emergency Department 11/30 with a diagnosis of Hypoxic, Hypercapneic Respiratory Failure. Mr. De Guzman is a chronic resident at [facility]. He has a past Medical History significant for COPD, Cervical Cordoma s/p multiple spinal surgeries on chronic narcotics, Bilateral LE weakness with ambulatory dysfunction, HTN, and neurogenic bladder with urinary retention, s/p byrd catheter placement. He is essentially bedbound. He also has a prior history of Mucous Plugging, and was recently hospitalized and treated for pneumonia with concern for aspiration and mucous plugging. He presented to the ED with noted tachypnia and hypoxia, in marked respiratory distress - he was initially seen at [facility] with similiar complaints, and discharged following IVFs and nebulizer t reatment. Initial work-up was significant for a mild leukocytosis, elevated bicarb, hypoxia and hypercapnia by ABG that appeared compensated, and bibasilar airspace disease by imaging. Shortly after presentation the patient deteriorated, becoming obtunded and unarousable - repeat ABG with development of new acidosis in setting of markedly worsening PCO2. He failed 3 seperate attempts at intubation in the ED - twice with direct Laryngoscopy, with each successful but with loss of airway in attempt at repositioning due to ETT being in a high position, and a third attempt while utilizing a glide Scope but with inability to advance tube in setting of a high position (resistance with difficulty in ventilation). The resultant removed tube showed evidence of being kinked. The patient was instead maintained on BiPAP with significant improvement in both mental status and in hypercapnia and acidosis. At that time the patient was admitted to the ICU for further evaluation and treatment. Mr. De Guzman was recently hospitalized at [facility] between 11/12-11/17, treated with broad-spectrum antibiotics for a presumed aspiration pneumonia (felt due to chronic aspiration). Also with noted concern for mucous plugging and difficulty with clearing his mucous by records, imaging, and verbal report. 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 The patient had been maintained on broad-spectrum antibiotic therapy, with high dose steroids and frequent nebs, and required short course of BiPAP initially. He remains on doxycycline now with sputum + for MRSA, with steroids in the process of being weaned. He appears vastly improved. No overnight events reported. Remains afebrile. Exam Narrative Exam Narrative: General: Patient appears chronically ill, AAOX3, NAD Neck: Supple CV: Regular, mildly tachycardic, S1S2, No rubs, murmurs, or gallops. Pulmonary: Good air entry without wheezing, no crackles or rhonchi. Abdomen: + Bowel Sounds, soft, nontender, nondistended Vascular: No lower extremity edema Psych: Normal mood and affect. Objective Objective Clinical Data: Abnormal lab results 12/02/18 12/02/18 12/03/18 Range/Units 11:00 11:00 06:15 Hct 39.9 L (40.0-50.0) % RDW 14.4 H (11.8-14.1) % Absolute Lymphocytes 0.15 L (1.2-3.4) k/cumm Potassium 3.1 L 3.4 L (3.5-5.1) mmol/L Creatinine 0.34 L 0.27 L (0.70-1.30) mg/dL Glucose 147 H (70-100) mg/dL Calcium 8.3 L (8.5-10.1) mg/dL 12/03/18 Range/Units 06:15 Hct (40.0-50.0) % RDW 14.6 H (11.8-14.1) % Absolute Lymphocytes 0.42 L (1.2-3.4) k/cumm Potassium (3.5-5.1) mmol/L Creatinine (0.70-1.30) mg/dL Glucose (70-100) mg/dL Calcium (8.5-10.1) mg/dL Vital Signs Temperature 36.5 C 12/03/18 08:35 Temperature Source Temporal Artery Scan 12/03/18 08:35 Pulse 95 H 12/03/18 07:44 Pulse 76 12/03/18 03:06 Respiratory Rate 18 12/03/18 07:44 Respiratory Effort 12/03/18 08:35 Respiratory Depth Normal 12/03/18 08:35 Respiratory Pattern Normal 12/03/18 08:35 Blood Pressure 137/94 H 12/03/18 03:19 Blood Pressure Mean 108 12/03/18 03:19 Blood Pressure Position Sitting 12/03/18 08:35 Pulse Oximetry 94 L 12/03/18 07:44 Respiratory End-tidal CO2 46 11/30/18 04:46 Oxygen Delivery Method Room Air 12/03/18 08:35 Oxygen Flow Rate 0 12/03/18 08:35 Fraction of Inspired Oxygen (FIO2) 21 12/03/18 07:47 Pain Level 1 12/03/18 10:01 Intake & Output 12/02/18 12/02/18 12/03/18 11:59 23:59 11:59 Intake Total 1540 / 3285 1745 / 3285 1540 / 1540 Output Total 750 / 2700 1950 / 2700 1150 / 1150 Balance 790 / 585 -205 / 585 390 / 390 Weight 56.8 kg Intake: IV 1100 / 2195 1095 / 2195 1540 / 1540 Oral 440 / 1090 650 / 1090 Output: Urine 750 / 2700 1950 / 2700 1150 / 1150 Other: Urine Color Light Kesha Pale Pale Yellow Yellow Urine Appearance Clear Clear Clear Comment Chronic byrd draining Chronic byrd draining Chronic byrd in place - draining Laboratory Results WBC 5.10 k/cumm (4.4-10.8) 12/03/18 06:15 RBC 4.75 m/cumm (4.50-6.00) 12/03/18 06:15 Hgb 13.7 g/dL (13.5-17.5) 12/03/18 06:15 Hct 41.1 % (40.0-50.0) 12/03/18 06:15 MCV 86.5 fL (80-95) 12/03/18 06:15 MCH 28.8 pg (27.0-33.0) 12/03/18 06:15 MCHC 33.3 g/dL (32.0-36.0) 12/03/18 06:15 RDW 14.6 % (11.8-14.1) H 12/03/18 06:15 Plt Count 202 x1000/uL (130-400) 12/03/18 06:15 MPV 8.8 fL (8.0-11.0) 12/03/18 06:15 Immature Gran % 0.2 12/03/18 06:15 Neutrophils % 82.2 12/03/18 06:15 Lymphocytes % 8.2 12/03/18 06:15 Monocytes % 9.4 12/03/18 06:15 Eosinophils % 0.0 12/03/18 06:15 Basophils % 0.0 12/03/18 06:15 Absolute Neutrophils 4.19 k/cumm (1.2-6.7) 12/03/18 06:15 Absolute Lymphocytes 0.42 k/cumm (1.2-3.4) L 12/03/18 06:15 Absolute Monocytes 0.48 k/cumm (0.11-0.7) 12/03/18 06:15 Absolute Eosinophils 0.00 k/cumm (0.0-0.7) 12/03/18 06:15 Absolute Basophils 0.00 k/cumm (0.0-0.2) 12/03/18 06:15 Sample Site Cancelled 12/01/18 09:24 pCO2 Cancelled 12/01/18 09:24 pO2 Cancelled 12/01/18 09:24 O2 Saturation Cancelled 12/01/18 09:24 ABG pH Cancelled 12/01/18 09:24 ABG HCO3 Cancelled 12/01/18 09:24 ABG Total CO2 Cancelled 12/01/18 09:24 ABG Base Excess Cancelled 12/01/18 09:24 Oxygen Liter Flow Cancelled 12/01/18 09:24 FiO2 Cancelled 12/01/18 09:24 Sodium 140 mmol/L (136-145) 12/03/18 06:15 Potassium 3.4 mmol/L (3.5-5.1) L 12/03/18 06:15 Chloride 104 mmol/L (98-107) 12/03/18 06:15 Carbon Dioxide 28.9 mmol/L (21.0-32.0) 12/03/18 06:15 Anion Gap 7.1 mmol/L (3-11) 12/03/18 06:15 BUN 9 mg/dL (7-18) 12/03/18 06:15 Creatinine 0.27 mg/dL (0.70-1.30) L 12/03/18 06:15 Estimated GFR/1.73 m2 >= 60.00 (mL/min/1.73m2) 12/03/18 06:15 Glucose 98 mg/dL (70-100) 12/03/18 06:15 Calcium 8.6 mg/dL (8.5-10.1) 12/03/18 06:15 Magnesium 1.9 mg/dL (1.8-2.4) 12/03/18 06:15 Troponin I Cancelled 11/30/18 15:00 Procalcitonin 0.6 ng/mL 12/01/18 06:45
--- NOTE | 2018-12-03 10:29 | PT.INIE ---
Date of service: 12/03/18 Time of Service: 10:00 PT Notes Inpatient Physical Therapy Evaluation Date: 12/03/18 Referring Doctor: Rommel Mix MD PT Orders: PT CONSULT: Evaluate and treat Precautions: Contact (MRSA) Patient Profile/Admitting Diagnosis: Orders received for this pleasant male who has had a tough course of lung dysfunction since getting pneumonia. He has a long history of spinal surgeries and has weakness through the lower extremities at baseline. He was admitted with heavily deteriorating lung function with attempt at intubation. He was put on BiPAP and did show some recovery. He has been confirmed as MRSA positive so contact precautions are in place. Since his admission he has seen further deterioration of his functional mobility but his lung function has improved. Patient has stated that there have been some new masses in the lungs that have been identifed. PMHX: Medical History BPH (benign prostatic hyperplasia) (Chronic) Chordoma of spine (Chronic) Chronic back pain (Acute) Chronic pulmonary aspiration (Acute) Constipation (Chronic) Debility (Acute) Denial about severity of illness (Acute) Disorder of meninges (Acute) Essential hypertension (Acute) Goals of care, counseling/discussion (Acute) Hyperlipidemia (Acute) Impotence (Acute) Right carotid artery occlusion (Chronic) Sacral ulcer (Chronic) Unable to stand up (Acute) Urinary retention (Chronic) Surgical History S/P spinal surgery (Acute) multiple surgeries due to chordoma Social History/Home Situation: Essentially bed bound, [facility]. About 2 months ago he was able to ambulate with Physical therapy in [facility] with walker with short distance. Equipment Owned/DME: Wheelchair and walker Subjective: Patient states he is not feeling up for much but knows that he needs to get going in order to get some leg function back Objective: Patient lying supine in bed with HOB to 45, He has telometry in place and Pulse oximetry, Motta catheter in place Mental Status: well oriented and alert to person place and time. Pain: 0/10 without moving ROM: Right Upper Extremity: WFL active Left Upper Extremity: WFL active Right Lower Extremity: WFL passive Left Lower Extremity: WFL passive Strength: Right Upper Extremity: 5/5 grossly Left Upper Extremity: 5/5 grossly Right Lower Extremity: hip flexion 3/5 can hold once placed in position, quads 2+/5, HS 2+/5, DF 2+/5, PF 2+/5, Hip abduction 3/5 Left Lower Extremity: hip flexion 3/5 can hold once placed in position, quads 2+/5, HS 2+/5, DF 1/5, PF 1/5, Hip abduction 3/5 Bed Mobility/Transfers: Max assist with considerable effort through patient's upper extremity for rolling Supine-sit: Not attempted Sit-stand:Not attempted Stand-sit: Not attempted Bed-commode: Not attempted Commode-chair: Not attempted Stand-sit: Not attempted Gait: Not attempted Balance: Static Sitting: Poor Dynamic Sitting: Poor Special Tests: Mobility Limitations Standardized Measure [facility] AM-PAC 6 clicks Basic Mobility Inpatient Short Form: Raw Score: 8 Standardized Score: 28.58 CMS Score:86.62 CMS Modifier: CM Treatment therapeutic procedures: Heel pumps assisted, hip flexion and heel slides assisted, Rows and shoulder flexion X20 bilaterally Informed Consent/Education: Patient instructed in purpose of PT consult and plan of care. ASSESSMENT: Patient is a 68 year old male with hx of health conditions affecting function Admitted with difficulty breathing Patient presents with the following impairment level findings: limited strength through lower extremities and core, essentially bed bound with max assisted needed for bed mobility and transfers, no ambulation ability, Pt will benefit from skilled therapy intervention in order to remedy their functional limitations and restore patient to a more appropriate and stable functional level. Impairments are contributing to the following functional limitations: AMPAC score 8 CMS Score: 86.62% Patient is assessed as a High complexity initial evaluation 73710 based on the following: History: see above Examination: see above Presentation: unstable Decision Making: high based on AMPAC with score of 8 and 86.62% disability Goals: Goals X1 week 1. Supine-Sit Min Assist 2. Sit-Supine Min Assist 3. Sit-Stand Mod Assist 4. Stand-Sit Mod Assist Plan of Care/Treatment Plan: 1-2x/day, 7 days/week x 1 week. Plan of care has been reviewed with the APPLICATION DBA providing the service under Physical Therapy direction. Initiate Physical Therapy intervention for strengthening, bed mobility, transfers, gait, stairs, balance training, use of assistive device. DISCHARGE RECOMMENDATIONS: Back to [facility] once medically cleared for discharge with continued Physical therapy order TREATMENT CODE/TIME: High complexity initial evaluation 99414 15 min Time of treatment 10:00 Miguelito Logan DPT, [facility]
--- NOTE | 2018-12-03 12:23 | W.PALLCONSUL ---
Date of service: 12/02/18 History of Present Illness History of Present Illness Chief Complaint: multiple admissions for respiratory failure; difficult airway Narrative: I saw Damon on his last admission to discuss his goals of care. He was quite clear then that he wanted to be full code, and he wanted his difficult airway to be recognized by all. He asked that we let the ER and [facility] know that he requires a child's sized ET tube. This was done. Nonetheless, he required--per report--3 attempts to intubate him before success. As soon as possible, he was put on bipap instead and did overall quite well. He is now on RA and mentating at his baseline. I tried to call his daughter to get her input into this last health crisis. We could not connect by phone. Damon inadvertently gave me his home phone as his daughter's phone and when I called there, his son-in-law picked up. He explained that Damon had not been able to walk for several months. He has not been able to provide his own personal care for at least half a year. His , Maggie, had been caring for her dad, Damon, up until he was admitted to [facility]. Realitically, he could only go home with 24.7 care. He said that Damon has enough money to be able to afford about a year's worth of care, paying between 15-30 dollars per hour. Assessment and Plan Assessment and plan (1) History of bilevel positive airway pressure (BiPAP) therapy: Status: Acute Assessment and plan: We discussed his difficult intubation and his ability to recover with Bipap. Next crisis--as we assume there will be one--he will use Bipap directly, rather than be intubated. Code status changed to DNI. He still wants paddles and CPR. (2) DNI (do not intubate): Status: Acute (3) Palliative care patient: Status: Acute Assessment and plan: Will see him in the [facility] next week, (4) Neurogenic bowel: Status: Acute Assessment and plan: [place] from talking to [facility] staff that he is completely unable to have a BM on his own. REquires manual disimpaction q [address] Mix informed. He will put in an order for same. He is UNABLE to perform his own ADLs given this. Review of Systems Constitutional Constitutional: Reports body ache(s), Reports fatigue, Reports frequent falls, Reports poor appetite, Reports weakness and Reports weight loss Eyes Eyes: Reports dry eyes and Reports requires corrective lenses ENT Ears, Nose, Mouth, and Throat: Reports change in voice, Reports dysphagia, Reports dry mouth, Reports hearing loss, Reports hoarseness, Reports neck pain, Reports odynophagia and Reports disequilibrium Cardiovascular Cardiovascular: Reports rapid heart rate, Reports lightheadedness and Reports dyspnea on exertion Respiratory Respiratory: Reports dyspnea on exertion Gastrointestinal Gastrointestinal: Reports dysphagia and Reports odynophagia Genitourinary Genitourinary: Reports difficulty urinating Musculoskeletal Musculoskeletal: Reports neck pain Integumentary/Breasts Skin/Breast: Reports dry skin Neurologic Neurologic: Reports behavioral changes, Reports confusion, Reports frequent falls, Reports memory loss, Reports disequilibrium and Reports weakness Comments: very weak 3 person assist, with Nydia per rehab staff, not fully participating in PT.OT Psychiatric Psychiatric: Reports abnormal sleep pattern, Reports behavioral changes, Reports confusion, Reports difficulty concentrating and Reports memory loss Comments: per Rehab staff and nursing/PT/Care management, Damon doesn't have a good understanding of his capabilities very unrealistic apparently his daughter, Maggie, believes he should stay permanently at the Rehab, as private pay, once his 100 days are up I did not speak to her directly; this is from Rehab staff Endocrine Endocrine: Reports fatigue Hematologic/Lymphatic Hematologic/Lymphatic: Reports easy bruising [facility] Medical History 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 BPH (benign prostatic hyperplasia) (Chronic) Chordoma of spine (Chronic) Chronic back pain (Acute) Chronic pulmonary aspiration (Acute) Constipation (Chronic) Debility (Acute) Denial about severity of illness (Acute) Disorder of meninges (Acute) DNI (do not intubate) (Acute) Essential hypertension (Acute) Goals of care, counseling/discussion (Acute) History of bilevel positive airway pressure (BiPAP) therapy (Acute) Hyperlipidemia (Acute) Impotence (Acute) Palliative care patient (Acute) 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 Social History Smoking/Tobacco Use Status: Former Tobacco Use Tobacco: How many years used: 25 Second Hand Exposure: No Alcohol Intake: former Drug use: Never Substance use type: does not use Caregiver/Support person: No Household members: none Housing: [facility] Number of Children: 1 number of grandchildren: 2 Communication Needs: Hard of Hearing and Corrective Lenses Education Level: high school Do you need help understanding health information?: Rarely current occupation: Retired Pets and animals: No Current gender identity: male What is your relationship status?: How often do you talk on the phone with friends or family?: once per week How often do you get together with friends or relatives?: once per week Panel score (0-1 are the most socially isolated patients): 0 What type of physical activity do you participate in: none, bed-bound and sedentary lifestyle Special gregorio needs: No Agree to transfusion: Yes Seatbelt use: always Do you feel safe at home: Yes Do you feel safe in your relationship?: Yes Additional Social history: [place] well, [place] Daughter about 5 miles away. He is currently at [facility] and . Staff believe family planning on this being permanent placement. Damon thinks he will get better enough to go home. Contradictory views. He is EXTREMELY debilitated. Unsafe to go home alone. Exam Narrative Exam Narrative: General: Patient appears chronically ill, AAOX3, NAD Neck: Supple CV: Regular, borderline tachycardic, S1S2, No rubs, murmurs, or gallops. Pulmonary: Good air entry without wheezing, no crackles or rhonchi. Overall improved. Abdomen: + Bowel Sounds, soft, nontender, nondistended Vascular: No lower extremity edema Psych: Normal mood and affect. Results Last Vital Signs Temp 97.7 F 12/03/18 08:35 Pulse 96 H 12/03/18 11:53 Resp 16 12/03/18 11:53 BP 139/90 12/03/18 09:01 Pulse Ox 97 12/03/18 11:53 Labs Result diagrams: 12/04/18 06:45 12/04/18 06:45 Labs: Laboratory Results - last 24 hr 12/02/18 12/03/18 12/03/18 08:16 06:15 06:15 WBC 5.10 RBC 4.75 Hgb 13.7 Hct 41.1 MCV 86.5 MCH 28.8 MCHC 33.3 RDW 14.6 H Plt Count 202 MPV 8.8 Immature Gran % 0.2 Neutrophils % 82.2 Lymphocytes % 8.2 Monocytes % 9.4 Eosinophils % 0.0 Basophils % 0.0 Absolute Neutrophils 4.19 Absolute Lymphocytes 0.42 L Absolute Monocytes 0.48 Absolute Eosinophils 0.00 Absolute Basophils 0.00 Sample Site Cancelled pCO2 Cancelled pO2 Cancelled O2 Saturation Cancelled ABG pH Cancelled ABG HCO3 Cancelled ABG Total CO2 Cancelled ABG Base Excess Cancelled Oxygen Liter Flow Cancelled FiO2 Cancelled Sodium 140 Potassium 3.4 L Chloride 104 Carbon Dioxide 28.9 Anion Gap 7.1 BUN 9 Creatinine 0.27 L Estimated GFR/1.73 m2 >= 60.00 Glucose 98 Calcium 8.6 Magnesium 1.9
[2018-12-03] MEDS: Milk of Magnesia 30 ML CUP PO (12:39)
[2018-12-03] MEDS: Potassium Chloride 20 MEQ TABCR PO (18:18)
[2018-12-03] MEDS: oxyCODONE 10 MG TAB PO (18:36)
[2018-12-03] MEDS: predniSONE 20 MG TAB 40 MG PO (20:02)
[2018-12-04] VITALS (8 sets, daily range): BP systolic 144–147; BP diastolic 93–111; PULSE 82–97; RESP 1–97; TEMP 36.1–37.2; O2SAT 83–98
[2018-12-04] MEDS: DOXYCYCLINE 100 MG in Normal Saline 100 ML IVPB (00:43)
[2018-12-04] MEDS: Normal Saline Flush 10 ML SYR IVP (00:47)
[2018-12-04 07:24] LABS: Abs Immature Grans 0.01 k/cumm (0.0-0.09); Absolute Lymphocyte Count 0.45 k/cumm (1.2-3.4); Absolute Monocyte Count 0.73 k/cumm (0.11-0.7); Absolute Neutrophil Count 6.49 k/cumm (1.2-6.7); HGB 14.7 g/dL (13.5-17.5); Immature Grans % 0.1; Lymphocytes % 5.9; Mean Corp. HGB Concentration 33.4 g/dL (32.0-36.0); Mean Corpuscular Hemoglobin 28.7 pg (27.0-33.0); Mean Corpuscular Volume 85.8 fL (80-95); Mean Platelet Volume 9.1 fL (8.0-11.0); Monocytes % 9.5; Neutrophils % 84.5; Platelet Count 251 x1000/uL (130-400); RBC 5.13 m/cumm (4.50-6.00); RBC Distribution Width 14.8 % (11.8-14.1); White Blood Cell Count 7.68 k/cumm (4.4-10.8)
[2018-12-04 07:25] LABS: Anion Gap 6.1 mmol/L (3-11); BUN 12 mg/dL (7-18); CO2 28.9 mmol/L (21.0-32.0); CREATININE 0.36 mg/dL (0.70-1.30); Calcium 8.6 mg/dL (8.5-10.1); Chloride 103 mmol/L (98-107); Glucose 94 mg/dL (70-100); Magnesium 2.1 mg/dL (1.8-2.4); Potassium 4.3 mmol/L (3.5-5.1); Sodium 138 mmol/L (136-145)
[2018-12-04] MEDS: Albuterol/Ipratropium 3 ML UPD VIAL UPD ×2 (07:51→11:49)
[2018-12-04] MEDS: oxyCODONE-CR 10 MG TABCR 30 MG PO (08:40)
[2018-12-04] MEDS: Tamsulosin 0.4 MG CAPCR 0.8 MG PO (08:40)
[2018-12-04] MEDS: Enoxaparin 40 MG/0.4 ML SYR SC (08:40)
[2018-12-04] MEDS: Cyclobenzaprine 10 MG TAB PO (08:40)
[2018-12-04] MEDS: guaiFENesin 600 MG TABCR 1200 MG PO (08:41)
[2018-12-04] MEDS: Finasteride 5 MG TAB PO (08:41)
[2018-12-04] MEDS: Senna TAB 1 TAB PO (08:41)
[2018-12-04] MEDS: Docusate Sodium 100 MG CAP PO (08:41)
[2018-12-04] MEDS: Pantoprazole 40 MG TABCR PO (08:41)
[2018-12-04] MEDS: predniSONE 20 MG TAB 40 MG PO (08:41)
--- NOTE | 2018-12-04 11:26 | W.PM.DS.N ---
Date of service: 12/04/18 Time of Service: 11:27 DS: Diagnosis Discharge Diagnosis (1) History of bilevel positive airway pressure (BiPAP) therapy: Status: Acute (2) DNI (do not intubate): Status: Acute (3) Palliative care patient: Status: Acute Discharge Plan Disposition Patient Disposition: SNF (LEVEL 1) [facility] RE[facility] Condition: Stable Discharge Details Chief Complaint: SOB Clinical Impression: Hypoxemia, Mucus plugging of bronchi Reason For Visit: ACUTE RESPIRATORY FAILURE Admit Date/Time: 11/30/18 01:03 Admit Provider: Grady Felix Attending Provider: Grady Felix Primary Care Provider: Jennifer Marc [facility] Course: Chief Complaint: Dyspnea HPI: 68 year with a past medical history significant for COPD, admitted from [facility] Emergency Department 11/30 with a diagnosis of Hypoxic, Hypercapneic Respiratory Failure. Mr. De Guzman is a chronic resident at [facility]. He has a past Medical History significant for COPD, Cervical Cordoma s/p multiple spinal surgeries on chronic narcotics, Bilateral LE weakness with ambulatory dysfunction, HTN, and neurogenic bladder & urinary retention, with a chronic indwelling byrd catheter in place. He is essentially bedbound. He also has a prior history of Mucous Plugging, and was recently hospitalized and treated for pneumonia with concern for aspiration and mucous plugging. He presented to the ED with noted tachypnia and hypoxia, in marked respiratory distress - he was initially seen at [facility]'s ED earlier that day with similiar complaints, and discharged following IVFs and nebulizer treatment. Initial work-up was significant for a mild leukocytosis, elevated bicarb, hypoxia and hypercapnia by ABG that appeared compensated, and bibasilar airspace disease by imaging. Shortly after presentation the patient deteriorated, becoming obtunded and unarousable - repeat ABG showed development of new acidosis in setting of markedly worsening PCO2. He failed 3 seperate attempts at intubation in the ED - twice with direct Laryngoscopy, with each successful but with loss of airway in attempt at repositioning due to ETT being in a high position, and a third attempt while utilizing a glide Scope but with inability to advance tube in setting of a high position (resistance with difficulty in ventilation). The resultant removed tube showed evidence of being kinked. The patient was instead maintained on BiPAP with significant improvement in both mental status and in hypercapnia and acidosis. At that time the patient was admitted to the ICU for further evaluation and treatment. Mr. De Guzman was recently hospitalized at [facility] between 11/12-11/17, treated with broad-spectrum antibiotics for a presumed aspiration pneumonia (felt due to chronic aspiration). Also with noted concern for mucous plugging and difficulty with clearing his mucous by records, imaging, and verbal report. 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 The patient had been maintained on broad-spectrum antibiotic therapy, with high dose steroids and frequent nebs, and required short course of BiPAP initially. He remains on doxycycline now with sputum + for MRSA, with steroids in the process of being weaned. He appears vastly improved and back to his baseline respiratory status. No overnight events reported. Remains afebrile. Assessment & Plan: (1) Acute and chronic respiratory failure ([id number]): Improved with NIPPV, steroids, and aggressive nebs. Likely on the basis of continued Mucous Plugging +/- repeat infection. - Sputum Culture growing MRSA - discontinued Pip-Cristian. Currently with day #5 of Doxycycline - plan on a 7 day total course. - Continue steroids and wean over the next 7-10 days. Continue nebs as well. - Would benefit from aggressive pulmonary toilet - is agreeable to flutter vest, but unsure if insurance will cover. Is also a good candidate for NIPPV with a home Trilogy unit, which will be scheduled at the SNF. Continue expectorant therapy, Acapella. The patient's underlying pulmonary disease appears significant, with potential for malignancy by imaging, as well as evidence of rapid decompensation (probable mucous plugging) with inability to intubate due to either an endobronchial lesion or an extremely tough airway. Patient refused transfer to a tertiary center initially. He is now agreeable to a DNI status. He is also agreeable to follow-up with a cake mixer for further work-up of his imaging abnormalities as an outpatient, which is being scheduled by Case Management. (2) Pulmonary infiltrate: Potential pneumonia on the basis of mucous plugging, with current sputum culture growing MRSA. Also with concern regarding aspiration by review of records, although [facility] with reported upgrade in diet to regular with thin liquids on 11/23. Unfortunately speech therapy is unavailable currently at this instituion, and patient is refusing a modified diet. - Sputum + for MRSA. Continue day #5/ of Doxy. (3) Abnormal CT of the chest: Potential for malignancy by official read - will need pulmonary follow-up as outpatient, with pulmonary follow-up being arranged by Case Management at time of discharge. 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 - Continue Diclofenac, Cyclobenzaprine, and prn Oxycodone. Resumed home Oxycontin dosing as well. (6) BPH (benign prostatic hyperplasia): Continue Flomax, Proscar. (7) DVT prophylaxis: Was maintained on SC Enoxaparin - patient is high risk for DVT long-term given lack of mobility. Ensure GI Prophylaxis long-term as well. (8) Advance directive discussed with patient: DNI, but would like chest compressions and shocks if needed. (9) Chronic Wound Care: Presence of sacral wound, known and chronic, without signs of infection. Recommend continuation of chronic wound care, monitoring, and off loading as able. Wound care consult placed and evaluation being undertaken prior to discharge. (10) Constipation: Constipation requiring manual disimpaction in patient on chronic opiate therapy. Continue to uptitrate bowel regimen as much as possible until improvement. Home Meds and New Rx's Prescriptions: New bisacodyl 10 mg Suppository 10 mg GA DAILY PRN PRN (Reason: constipation) Qty: 0 RF: 0 Enema Disposable 19-7 gram/118 mL Enema 133 ml GA DAILY PRN PRN (Reason: constipation) Qty: 133 RF: 0 DuoDERM Hydroactive Paste 0 g topical Q48H Qty: 0 RF: 0 doxycycline hyclate 100 mg capsule 100 mg PO BID Qty: 5 RF: 0 prednisone 10 mg tablet 10 mg PO DAILY Qty: 45 RF: 0 docusate sodium [Colace] 100 mg capsule 100 mg PO TID Qty: 1 RF: 0 Continued ibuprofen 400 mg Tablet 400 mg PO BID RF: 0 oxycodone [OxyContin] 30 mg Tablet,Oral Only,Ext.Rel.12 Hr 30 mg PO BID RF: 0 albuterol sulfate 2.5 mg /3 mL (0.083 %) Solution For Nebulization 2.5 mg UPD Q2H PRN PRNQty: 0 RF: 0 magnesium hydroxide [Milk of Magnesia] 400 mg/5 mL Suspension 30 ml PO DAILY PRN PRNQty: 0 RF: 0 sodium chloride [Deep Sea Nasal] 0.65 % Aerosol,[place] 0 ml NS QID PRN PRNQty: 0 RF: 0 guaifenesin [Mucinex] 600 mg Tablet Extended Release 12hr 600 mg PO BID Qty: 0 RF: 0 sennosides [senna] 8.6 mg Tablet 8.6 mg PO BID Qty: 0 RF: 0 magnesium hydroxide [Milk of Magnesia] 400 mg/5 mL Suspension 30 ml PO DAILY PRN PRNQty: 0 RF: 0 polyethylene glycol 3350 [Miralax] 17 gram/dose Powder 17 g PO DAILY Qty: 0 RF: 0 oxycodone 5 mg Tablet 10 mg PO Q4H PRN PRNQty: 30 RF: 0 pantoprazole [Protonix] 40 mg tablet,delayed release (DR/EC) 40 mg PO DAILY Qty: 30 RF: 0 cyclobenzaprine 10 mg Tablet 10 mg PO TID PRNRF: 0 bisacodyl 5 mg Tablet,Delayed Release (Dr/Ec) 10 mg PO Q12H PRNRF: 0 acetaminophen 325 mg Capsule 650 mg PO Q4H PRN PRNRF: 0 magnesium citrate Solution PO PRN PRNRF: 0 finasteride 5 mg Tablet 5 mg PO DAILY AM RF: 0 diclofenac sodium 1 % Gel 4 g TOPICAL PRN PRNRF: 0 tamsulosin 0.4 mg Capsule 0.8 mg PO DAILY AM RF: 0 albuterol sulfate 1.25 mg/3 mL Solution For Nebulization 1.25 mg inhalation Q6H PRN PRNRF: 0 Changed ipratropium-albuterol 0.5 mg-3 mg(2.5 mg base)/3 mL Solution For Nebulization 3 ml UPD QID Qty: 0 RF: 0 Discontinued prednisone 20 mg Tablet See Rx Instructions .ROUTE .COMPLEX Qty: 0 RF: 0 levofloxacin 750 mg tablet 750 mg PO DAILY Qty: 5 RF: 0 docusate sodium [Colace] 100 mg Capsule 100 mg PO BID RF: 0 docusate sodium 100 mg Capsule 100 mg PO BID PRNRF: 0 Discharge Instructions Stand Alone Forms: Nursing Discharge Form Referrals: Jennifer Marc [Primary Care Provider] - Activity:: Activity as Tolerated Equipment/Supplies:: No Equipment Needed Diet:: As Tolerated Discharge Orders Discharge Orders: Discharge Order (Routine); Ordered 12/04/18 Ordered By: Rommel Mix DS: Summary Status at Discharge Functional status at discharge: bed bound Overall status at discharge: patient is back to baseline Mental Status: mental status grossly normal Speech and Movement: speech and movement normal Mood: congruent mood Affect: normal affect Exam Psych Mental Status: mental status grossly normal Speech and Movement: speech and movement normal Mood: congruent mood Affect: normal affect DS: Data Vitals/I&O Vitals and I&O: Vital Signs Temperature 36.1 C L 12/04/18 07:50 Temperature Source Tympanic 12/04/18 07:50 Pulse 85 12/04/18 07:54 Pulse Rhythm Regular 12/04/18 08:43 Pulse 92 H 12/03/18 11:00 Respiratory Rate 16 12/04/18 09:40 Respiratory Effort 12/04/18 08:43 Respiratory Depth Normal 12/04/18 08:43 Respiratory Pattern Normal 12/04/18 08:43 Blood Pressure 147/111 H 12/04/18 07:50 Blood Pressure Mean 99 12/03/18 09:01 Blood Pressure Position Sitting 12/03/18 08:35 Pulse Oximetry 95 12/04/18 07:56 Respiratory End-tidal CO2 46 11/30/18 04:46 Oxygen Delivery Method Room Air 12/04/18 07:56 Oxygen Flow Rate 0 12/04/18 07:56 Fraction of Inspired Oxygen (FIO2) 21 12/03/18 07:47 Pain Level 3 12/04/18 09:40 Comment 12/04/18 07:50 Intake & Output 12/03/18 12/03/18 12/04/18 11:59 23:59 11:59 Intake Total 1790 / 1890 100 / 1890 350 / 350 Output Total 1150 / 2150 1000 / 2150 1350 / 1350 Balance 640 / -260 -900 / -260 -1000 / -1000 Weight 56.5 kg Intake: IV 1540 / 1640 100 / 1640 100 / 100 Oral 250 / 250 250 / 250 Output: Urine 1150 / 2150 1000 / 2150 1350 / 1350 Other: Urine Color Pale Yellow Pale Yellow Yellow Urine Appearance Clear Clear Clear Comment Chronic byrd in place - draining Stool Size Moderate Stool Characteristics Formed Data Completed and Pending Completed studies during hospitalization [Text1]: Exam(s) 11/[address]:CT chest w SYMPTOM/DIAGNOSIS: HYPERCAPNIC RESPIRATORY FAILURE, ? MALIGNANCY CHEST CT: Comparison is made with 12 November 2018. Consolidation is again noted in both lower lobes. There has been some improvement in aeration in the right lower lobe bronchi with less fluid or mucus. There has been interval worsening of the left lower lobe consolidation when compared with the previous exam. The bilateral pulmonary masses are stable. No pleural or pericardial effusions are seen. There is no evidence of pulmonary edema. IMPRESSION: Interval worsening of left lower lobe consolidation. Mild improvement in mucus plugging of the right lower lobe. Stable bilateral pulmonary masses. --------- Exam(s) 11/30 a RAD:XR portable chest AP SYMPTOM/DIAGNOSIS: RESPIRATORY FAILURE, R/O ASPIRATION PNEUMONIA SUPINE AP CHEST: 11/30 0850 HOURS Heart is not enlarged. Increased radiodensities again noted over the lung bases. N-G tube in position overlying the stomach. -------- Exam(s) 11/30 a RAD:XR portable chest AP post line SYMPTOM/DIAGNOSIS: INTUBATION PORTABLE SUPINE CHEST: 11/30 There is an endotracheal tube which lies at the level of the thoracic apex and which should be advanced. Elevation of the diaphragm again noted on the left with bibasilar predominantly linear radiodensities suggesting atelectasis. Appropriate follow up studies requested. CONCLUSION: Inappropriately high E-T tube insertion level. --------- Exam(s) a RAD:XR portable chest AP post line SYMPTOM/DIAGNOSIS: RE-EVALUATE TUBE PLACEMENT AFTER ADJUSTMENT. SUPINE AP CHEST: 11/30 Note is again made of E-T tube in superior position 11 cm above the dallin. The lungs are grossly well expanded, again suspect bibasilar atelectasis. -------- Exam(s) a RAD:XR portable chest AP SYMPTOM/DIAGNOSIS: SOB PORTABLE AP CHEST: 11/29 Note is again made of elevation diaphragm on the left. There appear to be areas of bibasilar atelectasis. Underlying infiltrate not excluded. Additional evaluation with PA and lateral chest suggested. Labs on day of discharge: Labs from last 24 hours 12/04/18 12/04/18 12/02/18 06:45 06:45 08:16 WBC 7.68 D RBC 5.13 Hgb 14.7 Hct 44.0 MCV 85.8 MCH 28.7 MCHC 33.4 RDW 14.8 H Plt Count 251 MPV 9.1 Immature Gran % 0.1 Neutrophils % 84.5 Lymphocytes % 5.9 Monocytes % 9.5 Eosinophils % 0.0 Basophils % 0.0 Absolute Neutrophils 6.49 Absolute Lymphocytes 0.45 L Absolute Monocytes 0.73 H Absolute Eosinophils 0.00 Absolute Basophils 0.00 Sample Site Cancelled pCO2 Cancelled pO2 Cancelled O2 Saturation Cancelled ABG pH Cancelled ABG HCO3 Cancelled ABG Total CO2 Cancelled ABG Base Excess Cancelled Oxygen Liter Flow Cancelled FiO2 Cancelled Sodium 138 Potassium 4.3 D Chloride 103 Carbon Dioxide 28.9 Anion Gap 6.1 BUN 12 Creatinine 0.36 L Estimated GFR/1.73 m2 >= 60.00 Glucose 94 Calcium 8.6 Magnesium 2.1 Preliminary micro results at discharge 11/30/18 14:44 Blood Culture - Preliminary Blood NO GROWTH 72 HOURS 11/30/18 14:25 Blood Culture - Preliminary Blood NO GROWTH 72 HOURS Sputum Culture Final 12/03/18-0859 Day 1 Result ISOLATES BELOW DAY 1 GROWTH SCANT GROWTH ISOLATE 1 APPEARANCE Gram Positive Luciana ISOLATE 1 ACTION SUSCEPTIBILITY TO FOLLOW DAY 1 GROWTH RARE GROWTH ISOLATE 2 APPEARANCE Normal Luciana Day 2 Result ISOLATES BELOW DAY 2 GROWTH MODERATE GROWTH ISOLATE 1 APPEARANCE Gram Positive Luciana DAY 2 GROWTH SCANT GROWTH ISOLATE 2 APPEARANCE Normal Luciana Day 3 Result ISOLATES BELOW DAY 3 GROWTH MODERATE GROWTH ISOLATE 1 APPEARANCE Gram Positive Luciana DAY 3 GROWTH SCANT GROWTH ISOLATE 2 APPEARANCE Normal Luciana This Staphlyococcus aureus isolate is positive for penicillin binding protein 2a (PBP2a) which is a mechanism for a methicillin resistance (MRSA). This preliminary result requires confirmatory testing via our standard susceptiblity procedures, the results of which will be available within 24-36 hrs. Reported MRSA results to and read back from SEAN KELLER 12/01/18 at 0947 by HALLEY Organism 1 Staph aureus, MRSA GROWTH MODERATE GROWTH Organism 2 NORMAL LUCIANA GROWTH SCANT GROWTH S aur,MRSA RESULT Ciprofloxacin R Gentamicin S Trimethoprim/Sulfamethoxazole R Linezolid S Erythromycin R Oxacillin R Vancomycin S Gram Stain Final 11/30/18-1315 GRAM STAIN Moderate White Blood Cells Rare Epithelial Cells Moderate Mixed Gram Positive Luciana; None Predominant Few Budding Yeast Rare Gram Negative Dion MRSA Screen (Patient) Final 12/01/18-0736 MRSA MRSA Screen Positive [facility] Medical History 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 BPH (benign prostatic hyperplasia) (Chronic) Chordoma of spine (Chronic) Chronic back pain (Acute) Chronic pulmonary aspiration (Acute) Constipation (Chronic) Debility (Acute) Denial about severity of illness (Acute) Disorder of meninges (Acute) DNI (do not intubate) (Acute) Essential hypertension (Acute) Goals of care, counseling/discussion (Acute) History of bilevel positive airway pressure (BiPAP) therapy (Acute) Hyperlipidemia (Acute) Impotence (Acute) Palliative care patient (Acute) 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 Social History Smoking/Tobacco Use Status: Former Tobacco Use Tobacco: How many years used: 25 Second Hand Exposure: No Alcohol Intake: former Drug use: Never Substance use type: does not use Caregiver/Support person: No Household members: none Housing: [facility] Number of Children: 1 number of grandchildren: 2 Communication Needs: Hard of Hearing and Corrective Lenses Education Level: high school Do you need help understanding health information?: Rarely current occupation: Retired Pets and animals: No Current gender identity: male What is your relationship status?: How often do you talk on the phone with friends or family?: once per week How often do you get together with friends or relatives?: once per week Panel score (0-1 are the most socially isolated patients): 0 What type of physical activity do you participate in: none, bed-bound and sedentary lifestyle Special gregorio needs: No Agree to transfusion: Yes Seatbelt use: always Do you feel safe at home: Yes Do you feel safe in your relationship?: Yes Additional Social history: When well, [place] Daughter about 5 miles away. He is currently at [facility] and . Staff believe family planning on this being permanent placement. Damon thinks he will get better enough to go home. Contradictory views. He is EXTREMELY debilitated. Unsafe to go home alone.
--- NOTE | 2018-12-04 12:00 | WOUNDCARE ---
Wound Care Report 12/04/18 Patient is a 68 year old man who was admitted for Acute respiratory failure with the clinical impression being due to mucous plugs. Wound is on sacrum, patient states the wound has been there for about a year. Patient states he obtained a pressure ulcer at [facility], at the same time the providers at [facility] found a fracture in the same area, as well as radiation damage from prior radiation treatment to the area. The wound is being followed at [facility] with an order for aquacel as the primary dressing/ packing and optifoam as the secondary dressing. Patient states the wound is doing much better with this treatment. Wound is 1.7 cm x 0.6 cm x 0.7 cm. There is undermining on lower part of wound 3 o'clock 0.5 cm, 5 o'clock 0.8 cm, 6 o'clock 2 cm, 7 o'clock 1.2 cm. The visable part of the wound bed has reddish tissue. The wound periphery has defined edges to open wound surrounded by reddish/ pink tissue with small amount of maceration noted directly on wound edges. No odor noted, No increased warmth to area noted. Rock has byrd in at this time, and was working with PT before this evaluation. Patient expressed that he has no feeling to sacrum and is unable to move legs on his own, was able to turn with one assist. Recommendations:For the wound I would recommend following current treatment if it is working (Cleanse with NS, loosely pack with aquacel, cover with foam dressing). If the drainage changes and the wound bed remains dry, if the wound does not progress in healing, or if wound appears worse I would recommend follow up with outpatient wound care provider. Due to his lack of independant mobility I would recommend repositioning this patient at least q 2 and PRN, taking care to have patient off wound as much as possible.
[2018-12-04] MEDS: DOXYCYCLINE 100 MG in Normal Saline 100 ML 200 MG IVPB (12:15)
--- NOTE | 2018-12-04 14:21 | PT.INTREAT ---
Date of service: 12/04/18 Time of Service: 14:21 PT Notes Inpatient Physical Therapy Treatment Note [facility] Date: 12/04/18 PRECAUTIONS: Contact SUBJECTIVE: Damon is agreeable to participating in PT, although states he will not be able to do much with his LE's due to weakness. OBJECTIVE: PAIN: No c/o pain BED MOBILITY/TRANSFERS/GAIT: Rolling to L/R tested, only. Rolling L/R: Min A to L and Mod A to R THEREX: Patient completed a LE and UE strengthening program, in both side-lying and supine positions, as per flow sheet. Patient attempted to perform all exercises with R LE, although required total assist with each, due to weakness. ASSESSMENT: Patient tolerated session without complaint. He continues to require significant assist with all right LE exercises due to weakness. He would benefit from continued global strengthening for improved ability to perform daily functional activities. PLAN: As per primary PT TREATMENT CODE/TIME: 25 minutes; 16662, [id number]
--- NOTE | 2018-12-04 16:53 | CMDISCH_ITS ---
- If Service Date Differs Date of service: 12/04/18 Time of Service: 16:53 LACE Index Scoring Tool - Questions: Length of Stay (in days): 4 - 6 Acuity (Admit via E.D.?): Yes Comorbidities: Chronic Pulmonary Disease, Any Tumor E.D. Visits: 5 - Answers: Total Score: 16 Risk of Readmission: High Risk Care Management Discharge Reason for Hospitalization: Acute respiratory failure Discharge Plan: Damon is being discharged back to [facility] today. DARLEEN reviewed the current care with LIVAN at [facility]. Damon wants to at some point return home and is hopeful this will occur soon. Damon would benefit from a team meeting that included socialwork, palliative care, and he and his family to support his goals. Maurice will be discharged via ambulance coordinated by DARLEEN. Patient/Family Education Needs: Discharge education, limitation and follow up plan of care. Services Needed at Discharge: Prison Facility, Transportation
--- NOTE | 2018-12-07 13:02 | PT.INDS ---
Date of service: 12/07/18 PT Notes Inpatient Physical Therapy Discharge Summary Dates: 12/07/2018 Dates of Service: 12/03/2018 through 12/04/2018 This is a clinical summary of care provided on the duration of dates listed above. No charge was made in the completion of this documentation. Referring Doctor: Rommel Mix MD PT Orders: PT CONSULT: Evaluate and treat Precautions: Contact (MRSA) Patient Profile/Admitting Diagnosis: Orders received for this pleasant male who has had a tough course of lung dysfunction since getting pneumonia. He has a long history of spinal surgeries and has weakness through the lower extremities at baseline. He was admitted with heavily deteriorating lung function with attempt at intubation. He was put on BiPAP and did show some recovery. He has been confirmed as MRSA positive so contact precautions are in place. Since his admission he has seen further deterioration of his functional mobility but his lung function has improved. Patient has stated that there have been some new masses in the lungs that have been identifed. PMHX: Medical History BPH (benign prostatic hyperplasia) (Chronic) Chordoma of spine (Chronic) Chronic back pain (Acute) Chronic pulmonary aspiration (Acute) Constipation (Chronic) Debility (Acute) Denial about severity of illness (Acute) Disorder of meninges (Acute) Essential hypertension (Acute) Goals of care, counseling/discussion (Acute) Hyperlipidemia (Acute) Impotence (Acute) Right carotid artery occlusion (Chronic) Sacral ulcer (Chronic) Unable to stand up (Acute) Urinary retention (Chronic) Surgical History S/P spinal surgery (Acute) multiple surgeries due to chordoma Social History/Home Situation: Essentially bed bound, [facility] About 2 months ago he was able to ambulate with Physical therapy in [facility] with walker with short distance. Equipment Owned/DME: Wheelchair and walker Subjective: NT Objective: NT Mental Status: NT Pain: NT ROM: Right Upper Extremity: WFL active Left Upper Extremity: WFL active Right Lower Extremity: WFL passive Left Lower Extremity: WFL passive Strength: Right Upper Extremity: 5/5 grossly Left Upper Extremity: 5/5 grossly Right Lower Extremity: hip flexion 3/5 can hold once placed in position, quads 2+/5, HS 2+/5, DF 2+/5, PF 2+/5, Hip abduction 3/5 Left Lower Extremity: hip flexion 3/5 can hold once placed in position, quads 2+/5, HS 2+/5, DF 1/5, PF 1/5, Hip abduction 3/5 Bed Mobility/Transfers: Max assist with considerable effort through patient's upper extremity for rolling Gait: Non-ambulatory Balance: Static Sitting: Poor Dynamic Sitting: Poor Informed Consent/Education: Patient instructed in purpose of PT consult and plan of care. ASSESSMENT: Patient is a 68-year-old male with history of health conditions affecting function Admitted with difficulty breathing Patient presents with the following impairment level findings: limited strength through lower extremities and core, essentially bed bound with max assisted needed for bed mobility and transfers, no ambulation ability, Patient will benefit from skilled therapy intervention in order to remedy their functional limitations and restore patient to a more appropriate and stable functional level. Patient is assessed as a High complexity initial evaluation [id number] based on the following: History: see above Examination: see above Presentation: unstable Decision Making: high based on AMPAC with score of 8 and 86.62% disability Goals: Goals X1 week 1. Supine-Sit Min Assist 2. Sit-Supine Min Assist 3. Sit-Stand Mod Assist 4. Stand-Sit Mod Assist Like the baby Plan of Care/Treatment Plan: 1-2x/day, 7 days/week x 1 week. Plan of care has been reviewed with the [employer] providing the service under Physical Therapy direction. Initiate Physical Therapy intervention for strengthening, bed mobility, transfers, gait, stairs, balance training, use of assistive device. DISCHARGE RECOMMENDATIONS: Back to [facility] once medically cleared for discharge with continued Physical therapy order TREATMENT CODE/TIME: High complexity initial evaluation [id number] 15 min Time of treatment 10:00 Thank you very much for this referral. Anne Loya PT, DPT, CLT [facility]
== END 2018-12-04 13:23 | disposition skilled nursing facility (03) | DRG 189 ==
LOC: ER 11-30 02:19 → ICU 11-30 06:08 → MS 12-03 17:12 → ICU 12-11 13:43
PROVIDERS: Internal Medicine; Admitting Provider Internal Medicine; Emergency Provider Emergency Medicine; PCP Family Medicine; Visit Provider Internal Medicine
DX: J96.21 Acute and chronic respiratory failure with hypoxia (principal); J69.0 Pneumonitis due to inhalation of food and vomit; T17.890A Other foreign object in other parts of respiratory tract causing asphyxiation, initial encounter; C41.2 Malignant neoplasm of vertebral column; K59.2 Neurogenic bowel, not elsewhere classified; J96.22 Acute and chronic respiratory failure with hypercapnia; J44.9 Chronic obstructive pulmonary disease, unspecified; R53.1 Weakness; R84.5 Abnormal microbiological findings in specimens from respiratory organs and thorax; B95.62 Methicillin resistant Staphylococcus aureus infection as the cause of diseases classified elsewhere; R91.8 Other nonspecific abnormal finding of lung field; T88.4XXA Failed or difficult intubation, initial encounter; L89.150 Pressure ulcer of sacral region, unstageable; G89.29 Other chronic pain; Z79.891 Long term (current) use of opiate analgesic; N40.0 Benign prostatic hyperplasia without lower urinary tract symptoms; K59.03 Drug induced constipation; T40.2X5A Adverse effect of other opioids, initial encounter; Z51.5 Encounter for palliative care
CPT/HCPCS: 31500; 36415; 71045; 80048; 82805; 84145; 87040; 87077; 87081; 93005; 96361; 96374; 96375; 97110; 97163; 97530; 99232; 99233; 99239; 99255; 99285; 99291; J1650; NC; 36600; 71260; 83735; 84484; 85025; 87070; 87186; 87205; 93010; 94640; 94660; J2250; J2310; J2543; J2930; J3490; J7512; J7620

== ENCOUNTER 2018-12-19 18:34 | Outpatient (REF) | payer MEDICARE, BC, SELFPAY | END 2018-12-19 18:54 | LOC: LBN 18:34 | PROVIDERS: PCP Family Medicine; Visit Provider Nurse Practitioner Adult Health | DX: A49.02 Methicillin resistant Staphylococcus aureus infection, unspecified site (principal); J15.212 Pneumonia due to Methicillin resistant Staphylococcus aureus | CPT/HCPCS: 87070; 87205 ==